=== PATIENT | male | born 1970 | race Hispanic/Latino ===

== ENCOUNTER 2018-06-12 05:02 | Emergency (ER) | payer BC, OTHER ==
--- OUTSIDE RECORDS SUMMARY | 2018-06-12 05:05 | XMS REPORT ---
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 Active with other specified diabetes mellitus Assessment Benign essential hypertension I10 Active Assessment Mixed hyperlipidemia E78.2 Active Assessment Allergic rhinitis, unspecified J30.9 Active seasonality, unspecified trigger Problem Benign essential hypertension I10 Active Problem Controlled type 2 diabetes mellitus E11.9 Active without complication, unspecified supervisor long goods insulin use status Problem Mixed hyperlipidemia E78.2 Active Assessment Controlled type 2 diabetes mellitus E11.9 Active without complication, unspecified supervisor long goods insulin use status Problem Allergic rhinitis, unspecified J30.9 Active seasonality, unspecified trigger Problem Diabetic polyneuropathy associated E13.42 Active with other specified diabetes mellitus Medications Medication Code Code Instructions Start End Status Dosage System Date Date Naproxen [facility] 11300903814 500 MG Orally Active 1 tablet every 12 hrs with food or milk as needed Aspirin Adult ND 60282916845 81 MG Orally Active 1 tablet Low Strength Once a day Tradjenta ND 25593842399 5 MG Orally October 09, Inactive 1 tablet Once a day 2018 Januvia ND 49729632777 100 MG Orally October 17, Active 1 tablet Once a day 2017 Lisinopril ND 64813703198 40 MG Orally Active 1 tablet Once a day Gabapentin ND 96633095952 300 MG Orally Active 1 capsule Three times a day Lipitor ND 01175130140 20 MG Orally Active 1 tablet Once a day Bydureon ND 07473282643 2 SC Once a Inactive 1 Vial week Glimepiride ND 35617350678 4 MG Orally October 09, Active 1 tablet twice a day 2017 with breakfast or the first main meal of the day Results No Known Results Summary Purpose eClinicalWorks Submission
[2018-06-12 06:40] LABS: Absolute Lymphocytes (CBC) 2.4 K/uL (0.7-4.9); Absolute Monocytes 0.6 K/uL (0.1-1.3); Absolute Neutrophil 4.8 K/uL (1.8-8.0); Basophils % 0.8 % (0-1.3); Eosinophils % 3.4 % (0-4.4); Hematocrit 50.1 % (39.6-49.0); Lymphocytes % 29.3 % (15.3-44.8); Monocytes % 7.3 % (3.3-12.3); RBC Red Blood Cell Count 5.96 M/uL (4.33-5.43)
[2018-06-12] MEDS ORDERED: ASPIRIN 81 MG CHEWABLE TABLET ONE (06:40)
[2018-06-12 06:42] LABS: Protime INR 1.01
[2018-06-12] MEDS ORDERED: KETOROLAC 30 MG/ML INJ ONE (06:58)
[2018-06-12] MEDS ORDERED: NA CHLORIDE 0.9% 1,000 ML ONE (06:58)
[2018-06-12] MEDS ORDERED: INSULIN -REGULAR HUMAN 50 UNIT/0.5 ML ML ONE ×2 (07:11→08:23)
[2018-06-12 07:17] LABS: ALT/SGPT 23 U/L (12-78); AST/SGOT 8 U/L (15-37); Alkaline Phosphatase 259 U/L (45-117); BUN Blood Urea Nitrogen 14 mg/dL (7-18); Bicarbonate 26 mmol/L (21-32); Bilirubin Direct 0.1 mg/dL (0-0.2); Bilirubin Total 0.5 mg/dL (0.2-1.0); Magnesium 2.1 mg/dL (1.8-2.4); NT PRO-BNP 7 pg/mL (<125); Potassium 4.2 mmol/L (3.5-5.1); Protein, Total 7.7 g/dL (6.4-8.2); Sodium Level 134 mmol/L (136-145); Troponin (Emerg Dept Use Only) < 0.02 ng/mL (0.0-0.045)
[2018-06-12 07:18] LABS: Glucose Level 416 mg/dL (74-106)
[2018-06-12] MEDS ORDERED: NA CHLORIDE 0.9% 2,000 ML ONE (07:40)
--- NOTE | 2018-06-12 08:15 | RAD REPORT ---
EXAM DESCRIPTION: RAD - Chest Single View - 06/12/2018 6:38 am CLINICAL HISTORY: left arm pain Chest pain. COMPARISON: CHEST SINGLE VIEW dated 02/20/2012; CHEST PA AND LAT 2 VIEW dated 11/23/2009; CHEST SINGL E VIEW dated 11/23/2009; CHEST PA AND LAT 2 VIEW dated 04/06/2008 FINDINGS: Portable technique limits examination quality. The lungs are underinflated but grossly clear. The heart is normal in size. No displaced fractures. IMPRESSION: No acute intrathoracic process suspected.
--- NOTE | 2018-06-12 09:20 | ER ---
Nurse's Notes [facility] Name: Guille Dunham Age: 48 yrs Sex: Male : 1970 Arrival Date: 06/12/2018 Time: 05:08 Bed 20 Private MD: Vish Florian Diagnosis: Diabetes mellitus due to underlying condition with diabetic neuropathy, unspecified Presentation: 06/12 05:15 Presenting complaint: Patient states: I am diabetic and I have been out of my ed1 medications for about a year now and I am having bad nerve pain in my feet and legs. I am also having a pain in my left bicep. Transition of care: patient was not received from another setting of care. Onset of symptoms was June 12, 2018. Risk Assessment: Do you want to hurt yourself or someone else? Patient reports no desire to harm self or others. Initial Sepsis Screen: Does the patient meet any 2 criteria? No. Patient's initial sepsis screen is negative. Does the patient have a suspected source of infection? No. Patient's initial sepsis screen is negative. Care prior to arrival: None. 05:15 Method Of Arrival: Ambulatory ed1 05:15 Acuity: JANICE 3 ed1 Triage Assessment: 05:22 General: Appears uncomfortable, Behavior is calm, cooperative. Pain: Complains of pain ed1 in left bicep, right leg and left leg Pain does not radiate. Pain currently is 8 out of 10 on a pain scale. Quality of pain is described as sharp, Pain began 4 hours ago. Is continuous. EENT: No signs and/or symptoms were reported regarding the EENT system. Neuro: Level of Consciousness is awake, alert, obeys commands, Oriented to person, place, time, situation. Cardiovascular: Denies chest pain, Heart tones S1 S2 present. Respiratory: Airway is patent Respiratory effort is even, unlabored, Respiratory pattern is regular, symmetrical, Breath sounds are clear bilaterally. Denies cough, shortness of breath. GI: Patient currently denies diarrhea, nausea, vomiting. : No signs and/or symptoms were reported regarding the genitourinary system. Derm: Skin is intact, is healthy with good turgor, Skin is dry, Skin is normal, Skin temperature is warm. Musculoskeletal: Circulation, motion, and sensation intact. Range of motion: intact in all extremities. Historical: - Allergies: 05:22 No Known Allergies; ed1 - Home Meds: 05:22 lisinopril 20 mg Oral tab 1 tab once daily [Active]; ed1 - PMHx: 05:22 Diabetes - NIDDM; Hyperlipidemia; Hypertension; ed1 - PSHx: 05:22 Knee surgery; ed1 - Immunization history:: Adult Immunizations up to date. - Social history:: Smoking status: Patient/guardian denies using tobacco. - Ebola Screening: : Patient negative for fever greater than or equal to 101.5 degrees Fahrenheit, and additional compatible Ebola Virus Disease symptoms Patient denies exposure to infectious person Patient denies travel to an Ebola-affected area in the 21 days before illness onset No symptoms or risks identified at this time. Screenin:25 Abuse screen: Denies threats or abuse. Denies injuries from another. Nutritional ed1 screening: No deficits noted. Tuberculosis screening: No symptoms or risk factors identified. Fall Risk None identified. Assessment: 05:25 General: See triage assessment. ed1 06:09 Reassessment: Patient appears in no apparent distress at this time. No changes from ed1 previously documented assessment. Patient and/or family updated on plan of care and expected duration. Pain level reassessed. Patient is alert, oriented x 3, equal unlabored respirations, skin warm/dry/pink. Patient states symptoms have not improved. 06:51 Reassessment: Patient appears in no apparent distress at this time. No changes from ed1 previously documented assessment. Patient and/or family updated on plan of care and expected duration. Pain level reassessed. Patient is alert, oriented x 3, equal unlabored respirations, skin warm/dry/pink. Patient states symptoms have not improved. 07:18 Reassessment: ELSA Deleon notified of critical lab value. Glucose 416. ss 07:45 Reassessment: Patient appears in no apparent distress at this time. Patient and/or hb family updated on plan of care and expected duration. Pain level reassessed. Patient is alert, oriented x 3, equal unlabored respirations, skin warm/dry/pink. 08:45 Reassessment: Patient appears in no apparent distress at this time. No changes from hb previously documented assessment. Patient and/or family updated on plan of care and expected duration. Pain level reassessed. Patient is alert, oriented x 3, equal unlabored respirations, skin warm/dry/pink. Vital Signs: 05:22 BP 127 / 94; Pulse 94; Resp 18; Temp 98.5(O); Pulse Ox 97% on R/A; Weight 108.86 kg; ed1 Height 5 ft. 9 in. (175.26 cm); Pain 8/10; 06:09 BP 148 / 98; Pulse 86; Resp 19; Pulse Ox 93% on R/A; Pain 8/10; ed1 06:51 BP 136 / 94; Pulse 79; Resp 13; Pulse Ox 92% on R/A; Pain 8/10; ed1 07:45 BP 140 / 94; Pulse 80; Resp 14; Pulse Ox 94% on R/A; dh3 09:00 BP 132 / 94; Pulse 72; Resp 16; Temp 95(O); Pulse Ox 100% on R/A; hb 05:22 Body Mass Index 35.44 (108.86 kg, 175.26 cm) ed1 ED Course: 05:08 Patient arrived in ED. es 05:09 Vish Florian DO is Private Physician. es 05:12 Keshia Jolley, RN is Primary Nurse. ed1 05:21 Triage completed. ed1 05:22 Arm band placed on. ed1 05:25 Patient has correct armband on for positive identification. Bed in low position. Call ed1 light in reach. 05:26 Awaiting ED provider evaluation. ed1 06:09 Resting quietly. Awaiting ED provider evaluation. ed1 06:14 Remy Lazo PA is PHCP. cp 06:14 Juan Mart MD is Attending Physician. cp 06:30 Initial lab(s) drawn, by mt, sent to lab. EKG done, by ED staff, reviewed by Juan Mart MD. Inserted saline lock: 20 gauge in left forearm, using aseptic technique. Blood collected. 06:37 X-ray completed. Portable x-ray completed in exam room. Patient tolerated procedure ls3 well. 06:38 XRAY Chest (1 view) In Process Unspecified. EDMS 07:09 Primary Nurse role handed off by Keshia Jolley, RN ed1 07:27 Stefani Menjivar, RN is Primary Nurse. hb 07:40 Urine collected: clean catch specimen, clear. dh3 09:31 No provider procedures requiring assistance completed. IV discontinued, intact, hb bleeding controlled, No redness/swelling at site. Pressure dressing applied. Administered Medications: 06:32 Drug: Aspirin Chewable Tablet 324 mg Route: PO; ed1 07:30 Follow up: Response: No adverse reaction hb 06:52 Drug: TORadol 30 mg Route: IVP; Site: left forearm; ed1 07:45 Follow up: Response: Pain is decreased hb 06:52 Drug: NS 0.9% 1000 ml Route: IV; Rate: 1 bolus; Site: left forearm; ed1 07:45 Follow up: Response: No adverse reaction; IV Status: Completed infusion hb 07:01 Drug: Insulin Regular Human 10 units {Co-Signature: bb (Veronica Mckeon RN).} Route: ed1 IVP; Site: left forearm; 08:00 Follow up: Response: No adverse reaction; Blood sugar is lowered hb 07:36 Drug: NS 0.9% 1000 ml Route: IV; Rate: 1 bolus; Site: left forearm; hb 09:20 Follow up: Response: No adverse reaction; IV Status: Completed infusion hb 08:18 Drug: NovoLIN R 7 units {Co-Signature: sg (Zane Vance RN).} Route: Sub-Q; Site: abdomen;hb 09:32 Follow up: Response: No adverse reaction; Blood sugar is lowered hb Point of Care Testing: Blood Glucose: 05:31 Blood Glucose: 354 mg/dL; Test Strip: Lot #: [id number]; Expiration: 10/30/2018; ed1 08:00 Blood Glucose: 299 mg/dL; dh3 09:20 Blood Glucose: 281 mg/dL; 3 Ranges: Outcome: 09:20 Discharge ordered by . cp 09:31 Discharged to home ambulatory. hb 09:31 Condition: stable 09:31 Discharge instructions given to patient, Instructed on discharge instructions, follow up and referral plans. medication usage, Demonstrated understanding of instructions, follow-up care, medications. 09:34 Patient left the ED. hb Signatures: Dispatcher [employer] Olimpia Billy Brenda, RN RN bb Smirch, Shelby, RN RN ss Keshia Jolley RN RN ed1 Remy Lazo PA PA cp Baxter, Heather, RN RN Charo Moya 3 Yeny Bonilla 3 Veronica Mckeon RN bb Zane Vance RN sg Corrections: (The following items were deleted from the chart) 09:23 09:22 Blood Glucose: Blood Glucose Wyntqce=531 mg/dL. 3 3
--- NOTE | 2018-06-12 09:20 | EDPHYS ---
Physician Documentation [facility] Name: Guille Dunham Age: 48 yrs Sex: Male : 1970 Arrival Date: 06/12/2018 Time: 05:08 Bed 20 Private MD: Vish Florian ED Physician Juan Mart HPI: 06/12 06:25 This 48 yrs old Male presents to ER via Ambulatory with complaints of Numbness cp of feet, diabetic,lt arm pain. 06:25 The patient presents with pain, paresthesias. The complaints affect the right foot and cp right lower leg and left foot and left lower leg. 06:25 Onset: The symptoms/episode began/occurred at an unknown time. and became worse last cp night. Associated signs and symptoms: Pertinent positives: tingling, left upper arm pain, of the right hand and left hand, Pertinent negatives calf tenderness, weakness, chest pain. Treatment prior to arrival includes: no previous treatment. 06:25 Patient reports he has been off his medications for diabetes for the past year. cp Historical: - Allergies: 05:22 No Known Allergies; ed1 - Home Meds: 05:22 lisinopril 20 mg Oral tab 1 tab once daily [Active]; ed1 - PMHx: 05:22 Diabetes - NIDDM; Hyperlipidemia; Hypertension; ed1 - PSHx: 05:22 Knee surgery; ed1 - Immunization history:: Adult Immunizations up to date. - Social history:: Smoking status: Patient/guardian denies using tobacco. - Ebola Screening: : Patient negative for fever greater than or equal to 101.5 degrees Fahrenheit, and additional compatible Ebola Virus Disease symptoms Patient denies exposure to infectious person Patient denies travel to an Ebola-affected area in the 21 days before illness onset No symptoms or risks identified at this time. ROS: 06:30 Constitutional: Negative for body aches, chills, fever, poor PO intake. cp 06:30 Eyes: Negative for injury, pain, redness, and discharge. cp 06:30 ENT: Negative for drainage from ear(s), ear pain, sore throat, difficulty swallowing, difficulty handling secretions. 06:30 Neck: Negative for pain with movement, pain at rest, stiffness, tenderness. 06:30 Cardiovascular: Negative for chest pain, edema, palpitations. 06:30 Respiratory: Negative for cough, shortness of breath, wheezing. 06:30 Abdomen/GI: Negative for abdominal pain, nausea, vomiting, and diarrhea, constipation, black/tarry stool, rectal bleeding. 06:30 Back: Negative for pain at rest, pain with movement. 06:30 : Negative for urinary symptoms. 06:30 MS/extremity: Positive for pain, of the left upper arm, Negative for injury or acute deformity, decreased range of motion. 06:30 Skin: Negative for cellulitis, rash. 06:30 Neuro: Positive for numbness, tingling, of the right hand and left hand and right foot and right lower leg and left foot and left lower leg, Negative for altered mental status, dizziness, headache, weakness. 06:30 All other systems are negative. Exam: 06:40 Constitutional: The patient appears in no acute distress, alert, awake, cp non-diaphoretic, non-toxic, well developed, well nourished. 06:40 Head/Face: Normocephalic, atraumatic. Eyes: Pupils equal round and reactive to light, cp extra-ocular motions intact. Lids and lashes normal. Conjunctiva and sclera are non-icteric and not injected. Cornea within normal limits. Periorbital areas with no swelling, redness, or edema. ENT: Nares patent. No nasal discharge, no septal abnormalities noted. Tympanic membranes are normal and external auditory canals are clear. Oropharynx with no redness, swelling, or masses, exudates, or evidence of obstruction, uvula midline. Mucous membranes moist. Neck: Trachea midline, no thyromegaly or masses palpated, and no cervical lymphadenopathy. Supple, full range of motion without nuchal rigidity, or vertebral point tenderness. No Meningismus. Chest/axilla: Normal chest wall appearance and motion. Nontender with no deformity. No lesions are appreciated. 06:40 Cardiovascular: Rate: normal, Rhythm: regular, Pulses: Pulses are 2+ in right radial artery, right dorsalis pedis artery, left radial artery and left dorsalis pedis artery. Heart sounds: murmur, not appreciated, Edema: is not appreciated, JVD: is not appreciated. 06:40 Respiratory: the patient does not display signs of respiratory distress, Respirations: normal, no use of accessory muscles, no retractions, labored breathing, is not present, Breath sounds: are clear throughout, no decreased breath sounds, no stridor, no wheezing. 06:40 Abdomen/GI: Inspection: abdomen appears normal, Bowel sounds: active, all quadrants, Palpation: abdomen is soft and non-tender, in all quadrants, rebound tenderness, is not appreciated, involuntary guarding, is not appreciated. 06:40 Back: pain, is absent, ROM is normal. 06:40 Musculoskeletal/extremity: Exam is negative for bony tenderness, calf tenderness, decreased range of motion, injury. 06:40 Skin: cellulitis, is not appreciated, no rash present. 06:40 Neuro: Orientation: to person, place \T\ time. Mentation: is normal, Cerebellar function: is grossly normal, Motor: moves all fours, strength is normal, Sensation: tingling, that is mild, of the right hand, left hand, right foot and left foot. 06:46 ECG was reviewed by the Attending Physician. cp Vital Signs: 05:22 BP 127 / 94; Pulse 94; Resp 18; Temp 98.5(O); Pulse Ox 97% on R/A; Weight 108.86 kg; ed1 Height 5 ft. 9 in. (175.26 cm); Pain 8/10; 06:09 BP 148 / 98; Pulse 86; Resp 19; Pulse Ox 93% on R/A; Pain 8/10; ed1 06:51 BP 136 / 94; Pulse 79; Resp 13; Pulse Ox 92% on R/A; Pain 8/10; ed1 07:45 BP 140 / 94; Pulse 80; Resp 14; Pulse Ox 94% on R/A; dh3 09:00 BP 132 / 94; Pulse 72; Resp 16; Temp 95(O); Pulse Ox 100% on R/A; hb 05:22 Body Mass Index 35.44 (108.86 kg, 175.26 cm) ed1 MDM: 06:15 Patient medically screened. cp 06:30 Differential diagnosis: cardiac arrythmia, electrolyte abnormality, DKA, dehydration, cp acute TX. 09:15 Data reviewed: vital signs, nurses notes, lab test result(s), EKG, radiologic studies, cp plain films. 09:15 Test interpretation: by ED physician or midlevel provider: ECG, plain radiologic cp studies. 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 Response to treatment: the patient's symptoms have markedly improved after treatment, and as a result, I will discharge patient. 06/12 06:23 Order name: Basic Metabolic Panel; Complete Time: 07:24 cp 06/12 07:25 Interpretation: Normal except: NA 134; GLUC 416. cp 06/12 06:23 Order name: CBC with Diff; Complete Time: 06:44 cp 06/12 06:44 Interpretation: Normal except: RBC 5.96; HCT 50.1. cp 06/12 06:23 Order name: LFT's; Complete Time: 07:24 cp 06/12 08:49 Interpretation: Normal except: AST 8; ALK 259; GLOB 3.7. cp 06/12 06:23 Order name: Magnesium; Complete Time: 07:24 cp 06/12 06:23 Order name: NT PRO-BNP; Complete Time: 07:24 cp 06/12 06:23 Order name: PT-INR; Complete Time: 06:44 cp 06/12 06:23 Order name: Troponin (emerg Dept Use Only); Complete Time: 07:24 cp 06/12 07:24 Interpretation: TROPED < 0.02; Reviewed. cp 06/12 06:23 Order name: XRAY Chest (1 view); Complete Time: 08:49 cp 06/12 08:02 Order name: Urine Dipstick--Ancillary (enter results) bd 06/12 08:02 Order name: Glucose, Ancillary Testing; Complete Time: 08:49 EDMS 06/12 06:23 Order name: EKG; Complete Time: 06:23 cp 06/12 06:23 Order name: Cardiac monitoring; Complete Time: 06:27 cp 06/12 06:23 Order name: EKG - Nurse/Tech; Complete Time: 06:27 cp 06/12 06:23 Order name: IV Saline Lock; Complete Time: 06:27 cp 06/12 06:23 Order name: Labs collected and sent; Complete Time: 06:27 cp 06/12 06:23 Order name: O2 Per Protocol; Complete Time: 06:25 cp 06/12 06:23 Order name: O2 Sat Monitoring; Complete Time: 06:24 cp 06/12 06:23 Order name: Accucheck Blood Glucose; Complete Time: 06:23 cp 06/12 07:27 Order name: Accucheck Blood Glucose: recheck \T\0800, repeat insulin 10 units if >300; cp Complete Time: 08:03 06/12 08:41 Order name: Accucheck Blood Glucose; Complete Time: 09:23 cp EC:46 Rate is 86 beats/min. Rhythm is regular. AL interval is normal. QRS interval is normal. cp QT interval is normal. Interpreted by me. Reviewed by me. Administered Medications: 06:32 Drug: Aspirin Chewable Tablet 324 mg Route: PO; ed1 07:30 Follow up: Response: No adverse reaction hb 06:52 Drug: TORadol 30 mg Route: IVP; Site: left forearm; ed1 07:45 Follow up: Response: Pain is decreased hb 06:52 Drug: NS 0.9% 1000 ml Route: IV; Rate: 1 bolus; Site: left forearm; ed1 07:45 Follow up: Response: No adverse reaction; IV Status: Completed infusion hb 07:01 Drug: Insulin Regular Human 10 units {Co-Signature: bb (Veronica Mckeon RN).} Route: ed1 IVP; Site: left forearm; 08:00 Follow up: Response: No adverse reaction; Blood sugar is lowered hb 07:36 Drug: NS 0.9% 1000 ml Route: IV; Rate: 1 bolus; Site: left forearm; hb 09:20 Follow up: Response: No adverse reaction; IV Status: Completed infusion hb 08:18 Drug: NovoLIN R 7 units {Co-Signature: sg (Zane Vance RN).} Route: Sub-Q; Site: abdomen;hb 09:32 Follow up: Response: No adverse reaction; Blood sugar is lowered hb Point of Care Testing: Blood Glucose: 05:31 Blood Glucose: 354 mg/dL; Test Strip: Lot #: [id number]; Expiration: 10/30/2018; ed1 08:00 Blood Glucose: 299 mg/dL; dh3 09:20 Blood Glucose: 281 mg/dL; dh3 Ranges: Critical Glucose Levels:Adult <50 mg/dl or >400 mg/dl <40 mg/dl or >180 mg/dl Disposition: 23:20 Co-signature as Attending Physician, Juan Mart MD. Disposition: 06/12/18 09:20 Discharged to Home. Impression: Diabetes mellitus due to underlying condition with diabetic neuropathy, unspecified. - Condition is Stable. - Discharge Instructions: Diabetes and Foot Care, Basic Carbohydrate Counting for Diabetes Mellitus, Neuropathic Pain, Form - Daily Diabetes Record, Diabetic Neuropathy, Diabetes and Exercise. - Medication Reconciliation Form, Thank You Letter, Antibiotic Education, Prescription Opioid Use, Work release form form. - Follow up: Private Physician; When: 1 - 2 days; Reason: Recheck today's complaints. - Problem is an ongoing problem. - Symptoms have improved. Signatures: Dispatcher [employer] EDMS Keshia Jolley RN RN ed1 Remy Lazo PA PA cp Baxter, Heather, RN RN Juan Mart MD MD Veronica Mckeon RN bb Zane Vance RN sg Corrections: (The following items were deleted from the chart) 09:34 09:20 06/12/2018 09:20 Discharged to Home. Impression: Diabetes mellitus due to hb underlying condition with diabetic neuropathy, unspecified. Condition is Stable. Discharge Instructions: Diabetes and Foot Care, Diabetes and Exercise, Basic Carbohydrate Counting for Diabetes Mellitus. Forms are Medication Reconciliation Form, Thank You Letter, Antibiotic Education, Prescription Opioid Use. Follow up: Private Physician; When: 1 - 2 days; Reason: Recheck today's complaints. Problem is an ongoing problem. Symptoms have improved. cp
[2018-06-12 09:23] LABS: Urine Blood NEGATIVE (NEG); Urine Glucose 3+ (NEG); Urine Protein NEGATIVE (NEG)
[2018-06-12 09:44] VITALS: BP 132/94; TEMP 95; O2SAT 100
--- NOTE | 2018-06-13 10:29 | EKG ---
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
== END 2018-06-12 09:34 | disposition home or self-care (01) ==
LOC: ER 05:02
DX: E11.40 Type 2 diabetes mellitus with diabetic neuropathy, unspecified (principal); E08.21 Diabetes mellitus due to underlying condition with diabetic nephropathy
CPT/HCPCS: 36415; 71045; 80048; 80076; 81003; 82962; 83735; 83880; 84484; 85025; 85610; 93005; 96361; 96372; 96374; 96375; 99284; J7030

== ENCOUNTER 2018-08-25 07:26 | Emergency (ER) | payer OTHER ==
--- OUTSIDE RECORDS SUMMARY | 2018-08-25 07:29 | XMS REPORT ---
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 Active with other specified diabetes mellitus Medications Medication Code Code Instructions Start End Status Dosage System Date Date Naproxen [facility] 58982448060 500 MG Orally Active 1 tablet every 12 hrs with food or milk as needed Aspirin Adult ND 30647643902 81 MG Orally Active 1 tablet Low Strength Once a day Tradjenta ND 35988487720 5 MG Orally October 09, Inactive 1 tablet Once a day 2018 Januvia ND 80531413367 100 MG Orally October 17, Active 1 tablet Once a day 2017 Lisinopril ND 23910651312 40 MG Orally Active 1 tablet Once a day Gabapentin ND 23092806311 300 MG Orally Active 1 capsule Three times a day Lipitor ND 55010432743 20 MG Orally Active 1 tablet Once a day Bydureon ND 62733901294 2 SC Once a Inactive 1 Vial week Glimepiride ND 65074472633 4 MG Orally October 09, Active 1 tablet twice a day 2017 with breakfast or the first main meal of the day Results No Known Results Summary Purpose eClinicalWorks Submission
--- NOTE | 2018-08-25 09:15 | ER ---
Nurse's Notes [facility] Name: Guille Dunham Age: 48 yrs Sex: Male : 1970 Arrival Date: 08/25/2018 Time: 07:28 Bed 13 Private MD: Diagnosis: Pain in right foot Presentation: 08/25 07:35 Presenting complaint: Patient states: About 4 months ago, my son was helping me take sg off my boot, felt a pop on the top of my right foot, now the pain is radiating up into my right ankle and the way it makes me walk has caused pain in my left hip, Im falling apart. Transition of care: patient was not received from another setting of care. Onset of symptoms was August 25, 2018. Risk Assessment: Do you want to hurt yourself or someone else? Patient reports no desire to harm self or others. Initial Sepsis Screen: Does the patient meet any 2 criteria? No. Patient's initial sepsis screen is negative. Does the patient have a suspected source of infection? No. Patient's initial sepsis screen is negative. Care prior to arrival: None. 07:35 Method Of Arrival: Ambulatory sg 07:35 Acuity: JANICE 4 sg Historical: - Allergies: 07:38 No Known Allergies; sg - Home Meds: 07:38 lisinopril 20 mg Oral tab 1 tab once daily [Active]; sg - PMHx: 07:38 Diabetes - NIDDM; Hyperlipidemia; Hypertension; sg - PSHx: 07:38 Knee surgery; sg - Immunization history:: Adult Immunizations up to date. - Social history:: Smoking status: Patient/guardian denies using tobacco. - Ebola Screening: : Patient negative for fever greater than or equal to 101.5 degrees Fahrenheit, and additional compatible Ebola Virus Disease symptoms Patient denies exposure to infectious person Patient denies travel to an Ebola-affected area in the 21 days before illness onset No symptoms or risks identified at this time. Screenin:38 Abuse screen: Denies threats or abuse. Denies injuries from another. Nutritional sg screening: No deficits noted. Fall Risk None identified. 07:42 Tuberculosis screening: No symptoms or risk factors identified. Never had TB. sg Assessment: 07:38 General: Appears in no apparent distress. well groomed, well developed, well nourished, sg Behavior is calm, cooperative, appropriate for age. Pain: Complains of pain in right lateral malleolus and dorsum of right foot Quality of pain is described as aching, tender. 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 Cardiovascular: Capillary refill is brisk in bilateral fingers Patient's skin is warm and dry. Chest pain is denied. Respiratory: Airway is patent Respiratory effort is even, unlabored, Respiratory pattern is regular, symmetrical. GI: Abdomen is round non-distended, Reports tolerance of fluids, tolerance of food. : No signs and/or symptoms were reported regarding the genitourinary system. EENT: No signs and/or symptoms were reported regarding the EENT system. Derm: Skin is pink, warm \T\ dry. Musculoskeletal: No signs and/or symptoms reported regarding the musculoskeletal system. Vital Signs: 07:36 BP 148 / 109; Pulse 82; Resp 17; Temp 97.9(O); Pulse Ox 97% on R/A; Pain 6/10; sg 09:00 BP 145 / 89; Pulse 80; Resp 17 S; Pulse Ox 98% on R/A; sg ED Course: 07:28 Patient arrived in ED. rg4 07:35 Zane Vance, RN is Primary Nurse. sg 07:36 Triage completed. sg 07:36 Arm band placed on. sg 07:39 No provider procedures requiring assistance completed. sg 07:40 Patient has correct armband on for positive identification. Bed in low position. Side sg rails up X2. Pulse ox on. NIBP on. 07:51 Josue Mathew MD is Attending Physician. kdr 08:32 X-ray completed. Portable x-ray completed in exam room. Patient tolerated procedure mh1 well. 08:33 Foot Right 3 View XRAY In Process Unspecified. EDMS 09:14 Zane Piña MD is Referral Physician. kdr 09:15 Patient did not have IV access during this emergency room visit. sg Administered Medications: No medications were administered Outcome: 09:15 Discharge ordered by . kdr 09:15 Discharged to home ambulatory, with family. sg 09:15 Condition: good 09:15 Discharge instructions given to patient, Instructed on discharge instructions, follow up and referral plans. safety practices, Demonstrated understanding of instructions, follow-up care, medications, Prescriptions given X 1. 09:20 Patient left the ED. sg Signatures: Dispatcher [employer] Zane Alvarado RN RN sg Rittger, Kevin, MD MD [facility] Chapis Hoffmann [facility] Shannan Iniguez 4
--- NOTE | 2018-08-25 09:16 | EDPHYS ---
Physician Documentation [facility] Name: Guille Dunham Age: 48 yrs Sex: Male : 1970 Arrival Date: 08/25/2018 Time: 07:28 Bed 13 Private MD: ED Physician Josue Mathew HPI: 08/25 07:58 This 48 yrs old Male presents to ER via Ambulatory with complaints of Foot kdr Pain. 07:58 The patient presents with an injury, pain, that is chronic, tenderness. The complaints kdr affect the right foot. Context: The problem was sustained at home, resulted from an unknown cause, Mechanism of Injury: Unknown the patient can partially bear weight, the patient is able to ambulate, with mild difficulty. Onset: The symptoms/episode began/occurred The pain has been there for several months but three weeks ago he had a spike in pain for no known reason. The initial injury occurred when his son pulled off a wet boot. Modifying factors: The symptoms are alleviated by nothing, the symptoms are aggravated by weight bearing, movement. Associated signs and symptoms: Pertinent positives: Pertinent negatives: calf tenderness, fever, nausea, numbness, rash, swelling, tingling, vomiting, warmth, weakness. Severity of symptoms: At their worst the symptoms were mild, moderate, just prior to arrival, in the emergency department the symptoms are unchanged. The patient has not experienced similar symptoms in the past. The patient has not recently seen a physician. Historical: - Allergies: 07:38 No Known Allergies; sg - Home Meds: 07:38 lisinopril 20 mg Oral tab 1 tab once daily [Active]; sg - PMHx: 07:38 Diabetes - NIDDM; Hyperlipidemia; Hypertension; sg - PSHx: 07:38 Knee surgery; sg - Immunization history:: Adult Immunizations up to date. - Social history:: Smoking status: Patient/guardian denies using tobacco. - Ebola Screening: : Patient negative for fever greater than or equal to 101.5 degrees Fahrenheit, and additional compatible Ebola Virus Disease symptoms Patient denies exposure to infectious person Patient denies travel to an Ebola-affected area in the 21 days before illness onset No symptoms or risks identified at this time. ROS: 07:58 Constitutional: Negative for fever, chills, and weight loss, Eyes: Negative for injury, kdr pain, redness, and discharge, Neck: Negative for injury, pain, and swelling, Cardiovascular: Negative for chest pain, palpitations, and edema, Respiratory: Negative for shortness of breath, cough, wheezing, and pleuritic chest pain, Abdomen/GI: Negative for abdominal pain, nausea, vomiting, diarrhea, and constipation, Back: Negative for injury and pain, : Negative for injury, bleeding, discharge, and swelling, Skin: Negative for injury, rash, and discoloration, Neuro: Negative for headache, weakness, numbness, tingling, and seizure activity. Psych: Negative for depression, anxiety, suicide ideation, homicidal ideation, and hallucinations, Allergy/Immunology: Negative for hives, rash, and allergies, Endocrine: Negative for neck swelling, polydipsia, polyuria, polyphagia, and marked weight changes, Hematologic/Lymphatic: Negative for swollen nodes, abnormal bleeding, and unusual bruising. 07:58 MS/extremity: Positive for injury or acute deformity, decreased range of motion, pain, tenderness, of the dorsum of right foot. Exam: 07:58 Constitutional: This is a well developed, well nourished patient who is awake, alert, kdr and in no acute distress. 07:58 Musculoskeletal/extremity: Extremities: grossly normal except: noted in the dorsum of right foot: decreased ROM, pain, tenderness. Vital Signs: 07:36 BP 148 / 109; Pulse 82; Resp 17; Temp 97.9(O); Pulse Ox 97% on R/A; Pain 6/10; sg 09:00 BP 145 / 89; Pulse 80; Resp 17 S; Pulse Ox 98% on R/A; sg MDM: 09:15 Patient medically screened. kdr 09:23 Data reviewed: vital signs, nurses notes, radiologic studies. Counseling: I had a kdr detailed discussion with the patient and/or guardian regarding: the historical points, exam findings, and any diagnostic results supporting the discharge/admit diagnosis, radiology results, the need for outpatient follow up. 08/25 07:58 Order name: Foot Right 3 View XRAY; Complete Time: 10:23 kdr 08/25 09:03 Order name: Post-op Orthopedic Shoe; Complete Time: 09:05 kdr 08/25 09:03 Order name: Crutches; Complete Time: 09:05 kdr Administered Medications: No medications were administered Disposition: 08/25/18 09:15 Discharged to Home. Impression: Pain in right foot. - Condition is Stable. - Discharge Instructions: Foot Pain. - Prescriptions for Tramadol 50 mg Oral Tablet - take 1 tablet by ORAL route every 8 hours as needed; 12 tablet. - Medication Reconciliation Form, Thank You Letter, Prescription Opioid Use form. - Work release form (08/25/18 09:20). sg - Follow up: Private Physician; When: 2 - 3 days; Reason: If symptoms return, Further diagnostic work-up, Recheck today's complaints, Continuance of care, Re-evaluation by your physician. Follow up: Zane Piña MD; When: 2 - 3 days; Reason: If symptoms return, Further diagnostic work-up, Recheck today's complaints, Continuance of care, Re-evaluation by your physician. - Problem is an ongoing problem. - Symptoms are unchanged. - Notes: If radiology findings are different that what has been related to you, we will call you back with any additional information as needed Signatures: Dispatcher [employer] [facility] Zane Vance RN RN Josue Mathew MD MD [facility] Corrections: (The following items were deleted from the chart) 09:20 09:15 08/25/2018 09:15 Discharged to Home. Impression: Pain in right foot. Condition is sg Stable. Forms are Medication Reconciliation Form, Thank You Letter, Antibiotic Education, Prescription Opioid Use. Follow up: Private Physician; When: 2 - 3 days; Reason: If symptoms return, Further diagnostic work-up, Recheck today's complaints, Continuance of care, Re-evaluation by your physician. Follow up: Zane Piña; When: 2 - 3 days; Reason: If symptoms return, Further diagnostic work-up, Recheck today's complaints, Continuance of care, Re-evaluation by your physician. Problem is an ongoing problem. Symptoms are unchanged. kdr
[2018-08-25 09:25] VITALS: BP 148/109; TEMP 97.9; O2SAT 97
--- NOTE | 2018-08-25 09:52 | RAD REPORT ---
EXAM DESCRIPTION: RAD - Foot Right 3 View - 08/25/2018 8:32 am CLINICAL HISTORY: Right foot and ankle pain following trauma COMPARISON: None. FINDINGS: No fracture, dislocation or periosteal reaction. No acute or destructive bone process. Ear ly joint space narrowing is present at the first MTP joint. Patient has small plantar and Achilles sp urs. No air or foreign body in the soft tissues. IMPRESSION: No fracture or acute bone finding. Small plantar and Achilles spurs.
== END 2018-08-25 09:20 | disposition home or self-care (01) ==
LOC: ER 07:26
DX: M79.671 Pain in right foot (principal); E11.9 Type 2 diabetes mellitus without complications; E78.5 Hyperlipidemia, unspecified; I10 Essential (primary) hypertension
CPT/HCPCS: 99283

== ENCOUNTER 2018-10-07 18:47 | Emergency (ER) | payer OTHER ==
--- OUTSIDE RECORDS SUMMARY | 2018-10-07 18:50 | XMS REPORT ---
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 Active with other specified diabetes mellitus Medications Medication Code Code Instructions Start End Status Dosage System Date Date Naproxen [facility] 59998464926 500 MG Orally Active 1 tablet every 12 hrs with food or milk as needed Aspirin Adult ND 68683278421 81 MG Orally Active 1 tablet Low Strength Once a day Tradjenta ND 12445175848 5 MG Orally October 09, Inactive 1 tablet Once a day 2018 Januvia ND 23684147537 100 MG Orally October 17, Active 1 tablet Once a day 2017 Lisinopril ND 59410261067 40 MG Orally Active 1 tablet Once a day Gabapentin ND 93982352582 300 MG Orally Active 1 capsule Three times a day Lipitor ND 62858566141 20 MG Orally Active 1 tablet Once a day Bydureon ND 09632032141 2 SC Once a Inactive 1 Vial week Glimepiride ND 66851449876 4 MG Orally October 09, Active 1 tablet twice a day 2017 with breakfast or the first main meal of the day Results No Known Results Summary Purpose eClinicalWorks Submission
[2018-10-07 19:40] LABS: Absolute Lymphocytes (CBC) 2.2 K/uL (0.7-4.9); Basophils % 0.9 % (0-1.3); Eosinophils % 2.8 % (0-4.4); Hematocrit 46.1 % (39.6-49.0); Lymphocytes % 30.8 % (15.3-44.8); MPV 10.6 fL (7.6-11.3); Monocytes % 7.5 % (3.3-12.3); RBC Red Blood Cell Count 5.38 M/uL (4.33-5.43)
[2018-10-07] MEDS ORDERED: LISINOPRIL 20 MG TAB ONE (19:50)
[2018-10-07] MEDS ORDERED: KETOROLAC 30 MG/ML INJ ONE (19:50)
[2018-10-07] MEDS ORDERED: NA CHLORIDE 0.9% 1,000 ML ONE (19:50)
[2018-10-07 20:15] LABS: Potassium 4.3 mmol/L (3.5-5.1)
[2018-10-07] MEDS ORDERED: INSULIN -REGULAR HUMAN 50 UNIT/0.5 ML ML ONE (21:05)
--- NOTE | 2018-10-07 22:41 | ER ---
Nurse's Notes [facility] Name: Guille Dunham Age: 48 yrs Sex: Male : 1970 Arrival Date: 10/07/2018 Time: 18:50 Bed 6 Private MD: Vish Florian Diagnosis: Hyperglycemia, unspecified;Other specified diabetes mellitus with diabetic polyneuropathy Presentation: 10/07 18:52 Presenting complaint: Patient states: "I have neuropathy and both of my legs are aa5 burning really bad and it's been going on for a while". Pt states "I can't afford my medications so I haven't been taking anything for diabetes or high blood pressure". Transition of care: patient was not received from another setting of care. Onset of symptoms was April 2018. Risk Assessment: Do you want to hurt yourself or someone else? Patient reports no desire to harm self or others. Initial Sepsis Screen: Does the patient meet any 2 criteria? No. Patient's initial sepsis screen is negative. Does the patient have a suspected source of infection? No. Patient's initial sepsis screen is negative. Care prior to arrival: None. 18:52 Method Of Arrival: Ambulatory aa5 18:52 Acuity: JANICE 2 aa5 Historical: - Allergies: 18:58 No Known Allergies; aa5 - Home Meds: 18:58 None [Active]; aa5 - PMHx: 18:58 Diabetes - NIDDM; Hyperlipidemia; Hypertension; aa5 - PSHx: 18:58 Knee surgery; aa5 - Immunization history:: Flu vaccine is not up to date. - Social history:: Smoking status: Patient/guardian denies using tobacco. - Ebola Screening: : No symptoms or risks identified at this time. - Family history:: not pertinent. - Hospitalizations: : No recent hospitalization is reported. Screenin:25 Abuse screen: Denies threats or abuse. Denies injuries from another. Nutritional lp1 screening: No deficits noted. Tuberculosis screening: No symptoms or risk factors identified. Fall Risk None identified. Assessment: 19:23 General: Appears uncomfortable, Behavior is appropriate for age. Pain: Complains of lp1 pain in right leg and left leg Pain currently is 8 out of 10 on a pain scale. Quality of pain is described as burning, stinging. Neuro: Level of Consciousness is awake, alert, obeys commands, Oriented to person, place, time, situation. Cardiovascular: Patient's skin is warm and dry. Pulses are all present. Respiratory: Respiratory effort is even, unlabored. GI: No signs and/or symptoms were reported involving the gastrointestinal system. : No signs and/or symptoms were reported regarding the genitourinary system. EENT: No signs and/or symptoms were reported regarding the EENT system. EENT:. Derm: Skin is pink, warm \\T\\ dry. Musculoskeletal: Capillary refill < 3 seconds, in bilateral fingers. toes. Range of motion: intact in all extremities. 20:24 Reassessment: Patient appears in no apparent distress at this time. Patient and/or lp1 family updated on plan of care and expected duration. Pain level reassessed. Patient states pain to bilateral lower legs improved at this time. 21:00 Reassessment: Patient and/or family updated on plan of care and expected duration. Pain ea level reassessed. Patient is alert, oriented x 3, equal unlabored respirations, skin warm/dry/pink. 22:55 Reassessment: Patient and/or family updated on plan of care and expected duration. Pain ea level reassessed. Patient is alert, oriented x 3, equal unlabored respirations, skin warm/dry/pink. Discharge instruction given to patient, verbalized the understanding of instruction. Pt left ED ambulatory tolerating well. Vital Signs: 18:58 BP 180 / 102; Pulse 90; Resp 18 S; Temp 98.4(TE); Pulse Ox 96% on R/A; Weight 106.37 kg aa5 (M); Height 5 ft. 9 in. (175.26 cm) (R); Pain 8/10; 19:25 BP 160 / 102; Pulse 81; Resp 18; Pulse Ox 97% on R/A; lp1 19:42 BP 167 / 95; Pulse 75; Resp 16; Pulse Ox 97% on R/A; lp1 20:15 BP 133 / 106; Pulse 78; Resp 18; Pulse Ox 97% on R/A; lp1 20:31 BP 152 / 90; Pulse 79; Resp 18; Pulse Ox 95% on R/A; lp1 22:50 BP 148 / 92; Pulse 80; Resp 18; Pulse Ox 100% on R/A; ea 18:58 Body Mass Index 34.63 (106.37 kg, 175.26 cm) aa5 ED Course: 18:50 Patient arrived in ED. rg4 18:50 Vish Florian DO is Private Physician. rg4 18:52 Arm band placed on. aa5 18:57 Triage completed. aa5 19:00 Rajesh Flores MD is Attending Physician. rn 19:05 Initial lab(s) drawn, by ut, sent to lab. Inserted saline lock: 20 gauge in right aa5 forearm, using aseptic technique. Blood collected. 19:23 Shila Spencer, RN is Primary Nurse. lp1 19:25 Patient has correct armband on for positive identification. Bed in low position. Call lp1 light in reach. Pulse ox on. NIBP on. 19:42 No provider procedures requiring assistance completed. lp1 19:52 Notified ED physician of a critical lab result(s). Glucose 540. lp1 22:40 Vish Florian DO is Referral Physician. rn 22:55 IV discontinued, intact, bleeding controlled, No redness/swelling at site. Pressure ea dressing applied. Administered Medications: 19:41 Drug: NS 0.9% 1000 ml Route: IV; Rate: 1000 ml; Site: right forearm; lp1 21:00 Follow up: IV Status: Completed infusion; IV Intake: 1000ml lp1 19:42 Drug: TORadol - Ketorolac 15 mg Route: IVP; Site: right forearm; lp1 20:06 Follow up: Response: Pain is decreased lp1 19:42 Drug: Lisinopril 20 mg Route: PO; lp1 20:35 Follow up: Response: Blood pressure is lowered lp1 20:54 Drug: Insulin Regular Human 10 units {Co-Signature: lp1 (Shila Spencer RN).} Route: Sub-Q; ea Site: right lower abdomen; 22:00 Follow up: Response: Blood sugar is lowered ea Point of Care Testing: Blood Glucose: 21:53 Blood Glucose: 461 mg/dL; ea 22:50 Blood Glucose: 418 mg/dL; ea 18:58 High >500 mg/dL aa5 Ranges: Intake: 21:00 IV: 1000ml; Total: 1000ml. lp1 Outcome: 22:40 Discharge ordered by . rn 22:59 Discharged to home ambulatory. ea 22:59 Condition: stable 22:59 Discharge instructions given to patient, Instructed on discharge instructions, follow up and referral plans. Demonstrated understanding of instructions, follow-up care. 23:04 Patient left the ED. ea Signatures: Rajesh Flores MD MD rn Calderon, Audri RN RN aa5 Shila Spencer RN RN lp1 Shannan Iniguez rg4 Kell Gonzalez RN RN ea Laura Pena RN lp1 Corrections: (The following items were deleted from the chart) 19:00 18:58 BP 180 / 102; Pulse 90bpm; Resp 18bpm; Spontaneous; Pulse Ox 96% RA; Temp 98.4F aa5 Temporal; 104.33 kg Reported; Height 5 ft. 9 in. Reported; BMI: 33.9; aa5 19:03 18:58 BP 180 / 102; Pulse 90bpm; Resp 18bpm; Spontaneous; Pulse Ox 96% RA; Temp 98.4F aa5 Temporal; 104.33 kg Reported; Height 5 ft. 9 in. Reported; BMI: 33.9; Pain 8/10; aa5
--- NOTE | 2018-10-07 22:41 | EDPHYS ---
Physician Documentation [facility] Name: Guille Dunham Age: 48 yrs Sex: Male : 1970 Arrival Date: 10/07/2018 Time: 18:50 Bed 6 Private MD: Vish Florian ED Physician Rajesh Flores HPI: 10/07 21:27 This 48 yrs old Male presents to ER via Ambulatory with complaints of Leg rn Pain, Foot Pain. 21:27 The patient presents with pain, that is chronic. The complaints affect the left leg and rn right leg. Onset: The symptoms/episode began/occurred at an unknown time. Modifying factors: The symptoms are alleviated by OTC meds, the symptoms are aggravated by movement. Severity of symptoms: At their worst the symptoms were moderate, in the emergency department the symptoms have improved. The patient has experienced similar episodes in the past, chronically. The patient has not recently seen a physician. Reports has known neuropathy, has not been on his diabetic meds including gabapentin or BP meds for almost 1 year, due to financial stress, reports is working again and having neuropathic pain as well as pain in knees from working, better with OTC meds, reports going to see pcp tomorrow but knows will need blood work done. No acute trauma. No fever. No focal neurological complaints. No chest pain/sob. . Historical: - Allergies: 18:58 No Known Allergies; aa5 - Home Meds: 18:58 None [Active]; aa5 - PMHx: 18:58 Diabetes - NIDDM; Hyperlipidemia; Hypertension; aa5 - PSHx: 18:58 Knee surgery; aa5 - Immunization history:: Flu vaccine is not up to date. - Social history:: Smoking status: Patient/guardian denies using tobacco. - Ebola Screening: : No symptoms or risks identified at this time. - Family history:: not pertinent. - Hospitalizations: : No recent hospitalization is reported. ROS: 21:27 Constitutional: Negative for fever, chills, and weight loss, Eyes: Negative for injury, rn pain, redness, and discharge, Neck: Negative for injury, pain, and swelling, Cardiovascular: Negative for chest pain, palpitations, and edema, Respiratory: Negative for shortness of breath, cough, wheezing, and pleuritic chest pain, Abdomen/GI: Negative for abdominal pain, nausea, vomiting, diarrhea, and constipation, Back: Negative for injury and pain, MS/Extremity: Negative for injury and deformity, Skin: Negative for injury, rash, and discoloration, Neuro: Negative for headache, weakness, numbness, tingling, and seizure. Exam: 21:27 Constitutional: This is a well developed, well nourished patient who is awake, alert, rn and in no acute distress. Head/Face: Normocephalic, atraumatic. Eyes: Pupils equal round and reactive to light, extra-ocular motions intact. Lids and lashes normal. Conjunctiva and sclera are non-icteric and not injected. Cornea within normal limits. Periorbital areas with no swelling, redness, or edema. ENT: MMM Neck: Trachea midline, no thyromegaly or masses palpated, and no cervical lymphadenopathy. Supple, full range of motion without nuchal rigidity, or vertebral point tenderness. No Meningismus. Respiratory: No increased work of breathing, no retractions or nasal flaring. Abdomen/GI: soft, non-tender Back: No spinal tenderness. No costovertebral tenderness. Full range of motion. Skin: Warm, dry with normal turgor. Normal color with no rashes, no lesions, and no evidence of cellulitis. MS/ Extremity: Pulses equal, no cyanosis. Neurovascular intact. Full, normal range of motion. Equal circumference. Neuro: Awake and alert, GCS 15, oriented to person, place, time, and situation. Cranial nerves II-XII grossly intact. Motor strength 5/5 in all extremities. Sensory grossly intact. Cerebellar exam normal. Normal gait. Vital Signs: 18:58 BP 180 / 102; Pulse 90; Resp 18 S; Temp 98.4(TE); Pulse Ox 96% on R/A; Weight 106.37 kg aa5 (M); Height 5 ft. 9 in. (175.26 cm) (R); Pain 8/10; 19:25 BP 160 / 102; Pulse 81; Resp 18; Pulse Ox 97% on R/A; lp1 19:42 BP 167 / 95; Pulse 75; Resp 16; Pulse Ox 97% on R/A; lp1 20:15 BP 133 / 106; Pulse 78; Resp 18; Pulse Ox 97% on R/A; lp1 20:31 BP 152 / 90; Pulse 79; Resp 18; Pulse Ox 95% on R/A; lp1 22:50 BP 148 / 92; Pulse 80; Resp 18; Pulse Ox 100% on R/A; ea 18:58 Body Mass Index 34.63 (106.37 kg, 175.26 cm) aa5 MDM: 19:00 Patient medically screened. rn 22:38 Differential diagnosis: neuropathy. Data reviewed: vital signs, nurses notes, lab test rn result(s), and as a result, I will discharge patient. Counseling: I had a detailed discussion with the patient and/or guardian regarding: the historical points, exam findings, and any diagnostic results supporting the discharge/admit diagnosis, lab results, the need for outpatient follow up, to return to the emergency department if symptoms worsen or persist or if there are any questions or concerns that arise at home. Response to treatment: the patient's symptoms have mildly improved after treatment, and as a result, I will discharge patient. Special discussion: I discussed with the patient/guardian in detail that at this point there is no indication for admission to the hospital. It is understood, however, that if the symptoms persist or worsen the patient needs to return immediately for re-evaluation. ED course: + hyperglycemia, likely for a while now, no AG, some improvement but will not be too aggressive with glucose lowering given is nighttime and will likely not eat again prior to going to bed. Plans on seeing pcp tomorrow for further medication prescriptions and management.. 10/07 19:03 Order name: Glucose; Complete Time: 20:44 aa5 10/07 19:26 Order name: CBC with Diff; Complete Time: 20:44 rn 10/07 19:26 Order name: Basic Metabolic Panel; Complete Time: 20:44 rn 10/07 19:26 Order name: Hemoglobin A1c rn 10/07 21:29 Order name: Glucose, Ancillary Testing; Complete Time: 22:38 EDMS 10/07 23:03 Order name: Glucose il 10/07 19:26 Order name: IV Start; Complete Time: 19:26 rn 10/07 23:03 Order name: Glucose Level EDMS Administered Medications: 19:41 Drug: NS 0.9% 1000 ml Route: IV; Rate: 1000 ml; Site: right forearm; lp1 21:00 Follow up: IV Status: Completed infusion; IV Intake: 1000ml lp1 19:42 Drug: TORadol - Ketorolac 15 mg Route: IVP; Site: right forearm; lp1 20:06 Follow up: Response: Pain is decreased lp1 19:42 Drug: Lisinopril 20 mg Route: PO; lp1 20:35 Follow up: Response: Blood pressure is lowered lp1 20:54 Drug: Insulin Regular Human 10 units {Co-Signature: lp1 (Shila Spencer RN).} Route: Sub-Q; ea Site: right lower abdomen; 22:00 Follow up: Response: Blood sugar is lowered ea Point of Care Testing: Blood Glucose: 21:53 Blood Glucose: 461 mg/dL; ea 22:50 Blood Glucose: 418 mg/dL; ea 18:58 High >500 mg/dL aa5 Ranges: Critical Glucose Levels:Adult <50 mg/dl or >400 mg/dl <40 mg/dl or >180 mg/dl Disposition: 10/07/18 22:40 Discharged to Home. Impression: Hyperglycemia, unspecified, Other specified diabetes mellitus with diabetic polyneuropathy. - Condition is Stable. - Discharge Instructions: Hyperglycemia, Diabetic Neuropathy. - Medication Reconciliation Form, Thank You Letter, Antibiotic Education, Prescription Opioid Use, Work release form form. - Follow up: Vish Florian DO; When: Tomorrow; Reason: Recheck today's complaints, Re-evaluation by your physician. - Problem is an ongoing problem. - Symptoms have improved. Signatures: Dispatcher [employer] EDMS Rajesh Flores MD MD rn Calderon, Audri, RN RN aa5 Shila Spencer RN RN lp1 Kell Gonzalez RN RN ea Laura Pena RN lp1 Corrections: (The following items were deleted from the chart) 23:04 22:40 10/07/2018 22:40 Discharged to Home. Impression: Hyperglycemia, unspecified; ea Other specified diabetes mellitus with diabetic polyneuropathy. Condition is Stable. Forms are Medication Reconciliation Form, Thank You Letter, Antibiotic Education, Prescription Opioid Use. Follow up: Vish Florian; When: Tomorrow; Reason: Recheck today's complaints, Re-evaluation by your physician. Problem is an ongoing problem. Symptoms have improved. rn
[2018-10-08 08:49] VITALS: TEMP 98.4
[2018-10-08 08:54] VITALS: BP 148/92; O2SAT 100
== END 2018-10-07 23:04 | disposition home or self-care (01) ==
LOC: ER 18:47
DX: E11.65 Type 2 diabetes mellitus with hyperglycemia (principal); E11.42 Type 2 diabetes mellitus with diabetic polyneuropathy; I10 Essential (primary) hypertension; E78.5 Hyperlipidemia, unspecified
CPT/HCPCS: 36415; 80048; 82947; 82962; 85025; 96361; 96372; 96374; 99284; J7030

== ENCOUNTER 2019-06-01 18:28 | Emergency (ER) | payer OTHER ==
--- OUTSIDE RECORDS SUMMARY | 2019-06-01 18:31 | XMS REPORT ---
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 Active with other specified diabetes mellitus Problem Controlled type 2 diabetes mellitus E11.9 Active without complication, unspecified terminal make up operator insulin use status Problem Allergic rhinitis, unspecified J30.9 Active seasonality, unspecified trigger Medications Medication Code Code Instructions Start End Status Dosage System Date Date Victoza [facility] 01751310028 18 MG/3ML May 21August 18, Active 0.6 mg Subcutaneous 2019 2019 daily x 1 weekly week, then 1.2 mg daily x 1 week and then 1.8 mg daily Pen [place] [facility] [id number] 32G X 4 MM with May 21, Active as directed Victoza daily 2019 Bydureon BCise [facility] 88257081999 2 MG/0.85ML May 20August 17, Inactive as directed Subcutaneous 2019 2019 Once a week Results No Known Results Summary Purpose [employer] Submission
--- OUTSIDE RECORDS SUMMARY | 2019-06-01 18:31 | XMS REPORT ---
:1970 Author Organization [employer] Care Team Providers Name Role Phone Vish Florian Provider Role Unavailable Allergies No Known Allergies Problems Problem Type Condition Code Onset Dates Condition Status Problem Benign essential hypertension I10 Active Problem Controlled type 2 diabetes mellitus E11.9 Active without complication, unspecified keno terminal operator insulin use status Problem Mixed hyperlipidemia E78.2 Active Problem Allergic rhinitis, unspecified J30.9 Active seasonality, unspecified trigger Problem Diabetic polyneuropathy associated E13.42 Active with other specified diabetes mellitus Medications No Known Medications Results No Known Results Summary Purpose [employer] Submission
--- OUTSIDE RECORDS SUMMARY | 2019-06-01 18:31 | XMS REPORT ---
:1970 Author Organization [employer] Care Team Providers Name Role Phone FlorianVish Provider Role Unavailable Allergies, Adverse Reactions, Alerts Substance Reaction Event Type N.K.D.A. Info Not Available Non Drug Allergy Problems Problem Type Condition Code Onset Dates Condition Status Assessment Mixed hyperlipidemia E78.2 Active Assessment Type 2 diabetes mellitus with E11.65 Active hyperglycemia, unspecified whether [facility] insulin use Assessment Benign essential hypertension I10 Active Assessment History of noncompliance with Z91.19 Active medical treatment Assessment Allergic rhinitis, unspecified J30.9 Active seasonality, unspecified trigger Assessment Proteinuria, unspecified type R80.9 Active Assessment Diabetic polyneuropathy associated E13.42 Active with other specified diabetes mellitus Problem Mixed hyperlipidemia E78.2 Active Problem Benign essential hypertension I10 Active Problem Type 2 diabetes mellitus with E11.65 Active hyperglycemia, unspecified whether [facility] insulin use Problem Diabetic polyneuropathy associated E13.42 Active with other specified diabetes mellitus Problem Controlled type 2 diabetes mellitus E11.9 Active without complication, unspecified [facility] insulin use status Problem Allergic rhinitis, unspecified J30.9 Active seasonality, unspecified trigger Medications Medication Code Code Instructions Start End Status Dosage System Date Date Gabapentin [facility] 59157977670 300 MG Orally Active 1 capsule Three times a day Januvia ND 91066742655 100 MG Orally October 17, Active 1 tablet Once a day 2017 Aspirin Adult ND 89641546082 81 MG Orally Active 1 tablet Low Strength Once a day Lisinopril ND 21226120050 40 MG Orally Active 1 tablet Once a day Lipitor ND 22425673156 20 MG Orally Active 1 tablet Once a day Glimepiride ND 48455711364 4 MG Orally Active 1 tablet twice a day with breakfast or the first main meal of the day Bydureon BCise ND 64906671759 2 MG/0.85ML May 20August 17, Active as directed Subcutaneous 2019 2019 Once a week Results No Known Results Summary Purpose [employer]ClinicalWorks Submission
--- OUTSIDE RECORDS SUMMARY | 2019-06-01 18:31 | XMS REPORT ---
:1970 Author Organization [employer] Care Team Providers Name Role Phone Vish Florian Provider Role Unavailable Allergies, Adverse Reactions, Alerts Substance Reaction Event Type N.K.D.A. Info Not Available Non Drug Allergy Problems Problem Type Condition Code Onset Dates Condition Status Assessment Diabetic polyneuropathy associated E13.42 Active with other specified diabetes mellitus Assessment Benign essential hypertension I10 Active Assessment Mixed hyperlipidemia E78.2 Active Assessment History of noncompliance with Z91.19 Active medical treatment Assessment Allergic rhinitis, unspecified J30.9 Active seasonality, unspecified trigger Problem Benign essential hypertension I10 Active Problem Controlled type 2 diabetes mellitus E11.9 Active without complication, unspecified termination clerk insulin use status Problem Mixed hyperlipidemia E78.2 Active Assessment Controlled type 2 diabetes mellitus E11.9 Active without complication, unspecified termination clerk insulin use status Problem Allergic rhinitis, unspecified J30.9 Active seasonality, unspecified trigger Problem Diabetic polyneuropathy associated E13.42 Active with other specified diabetes mellitus Medications Medication Code Code Instructions Start End Status Dosage System Date Date [facility] 44315335198 100 MG Orally October 17, Active 1 tablet Once a day 2017 Aspirin Adult ND 08630271962 81 MG Orally Active 1 tablet Low Strength Once a day Glimepiride ND 43092463684 4 MG Orally Active 1 tablet twice a day with breakfast or the first main meal of the day Gabapentin [facility] 71919288393 300 MG Orally Active 1 capsule Three times a day Lipitor [facility] 62007776159 20 MG Orally Active 1 tablet Once a day Lisinopril ND 85115536766 40 MG Orally Active 1 tablet Once a day Results No Known Results Summary Purpose eClinicalWorks Submission
--- NOTE | 2019-06-01 19:19 | RAD REPORT ---
EXAM DESCRIPTION: RAD - Knee Left 3 View - 06/01/2019 7:06 pm CLINICAL HISTORY: knee pain COMPARISON: No comparisons FINDINGS: Mild medial compartment space arthritic changes. No fracture or joint effusion.
--- NOTE | 2019-06-01 19:45 | ER ---
Nurse's Notes [facility] Name: Guille Dunham Age: 49 yrs Sex: Male : 1970 Arrival Date: 06/01/2019 Time: 18:30 Bed 30 Private MD: Diagnosis: Internal derangement of knee Presentation: 05/31 18:38 Chief complaint: Patient states: He hit his left knee with a box on Sunday and it has aj1 gotten progressively more painful since them. Coronavirus screen: The patient has NOT traveled to [place] in the past 14 days. Ebola Screen: Patient denies travel to an Ebola-affected area in the 21 days before illness onset. Initial Sepsis Screen: Does the patient meet any 2 criteria? No. Patient's initial sepsis screen is negative. Does the patient have a suspected source of infection? No. Patient's initial sepsis screen is negative. Risk Assessment: Do you want to hurt yourself or someone else? Patient reports no desire to harm self or others. 18:38 Method Of Arrival: Wheelchair aj 18:38 Acuity: JANICE 4 aj1 Triage Assessment: 18:41 General: Appears in no apparent distress. comfortable, Behavior is calm, cooperative, aj1 appropriate for age. Pain: Complains of pain in left knee. Historical: - Allergies: 18:41 No Known Allergies; aj1 - Home Meds: 18:41 lisinopril 20 mg Oral tab 1 tab once daily [Active]; gabapentin oral oral [Active]; aj1 Lisinopril Oral [Active]; victoza [Active]; glimepiride Oral [Active]; atorvastatin oral oral [Active]; - PMHx: 18:41 Diabetes - NIDDM; Hyperlipidemia; Hypertension; aj1 - Immunization history:: Flu vaccine is not up to date. - Social history:: Smoking status: Patient/guardian denies using tobacco. Screenin:42 Abuse screen: Denies threats or abuse. Denies injuries from another. Nutritional aj1 screening: No deficits noted. Tuberculosis screening: No symptoms or risk factors identified. 20:12 Fall Risk No fall in past 12 months (0 pts). Secondary diagnosis (15 points) impaired aj1 mobility, No IV (0 pts). Ambulatory Aid- Crutches/Cane/Walker (15 pts). Gait- Normal/Bed Rest/Wheelchair (0 pts) Mental Status- Oriented to own ability (0 pts). Total Oliva Fall Scale indicates Low Risk Score (25-44 pts). As available Patient and Family Educated on Fall Prevention Program and strategies. Assessment: 18:42 General: Appears in no apparent distress. comfortable, Behavior is calm, cooperative, aj1 appropriate for age. Pain: Complains of pain in left knee. Neuro: Level of Consciousness is awake, alert, obeys commands, Oriented to person, place, time, situation. Cardiovascular: Patient's skin is warm and dry. Respiratory: Airway is patent Respiratory effort is even, unlabored, Respiratory pattern is regular, symmetrical. GI: No signs and/or symptoms were reported involving the gastrointestinal system. : No signs and/or symptoms were reported regarding the genitourinary system. EENT: No signs and/or symptoms were reported regarding the EENT system. Derm: No signs and/or symptoms reported regarding the dermatologic system. Skin is pink, warm \T\ dry. normal. Musculoskeletal: Range of motion: limited in left knee. 19:45 Reassessment: Patient appears in no apparent distress at this time. No changes from aj1 previously documented assessment. Patient and/or family updated on plan of care and expected duration. Pain level reassessed. Patient is alert, oriented x 3, equal unlabored respirations, skin warm/dry/pink. Vital Signs: 18:38 BP 149 / 98; Pulse 95; Resp 18; Temp 97.6; Pulse Ox 98% on R/A; Weight 104.33 kg (R); aj1 Height 5 ft. 10 in. (177.80 cm) (R); Pain 8/10; 18:38 Body Mass Index 33.00 (104.33 kg, 177.80 cm) aj1 ED Course: 18:30 Patient arrived in ED. as 18:31 Chinedu Dominguez PA is PHCP. [facility] 18:31 Remy Valdez MD is Attending Physician. [facility] 18:38 Yudith Salgado, JOELLEN is Primary Nurse. aj1 18:40 Triage completed. aj1 18:41 Arm band placed on. aj1 18:42 Patient has correct armband on for positive identification. Bed in low position. Call aj1 light in reach. Side rails up X 1. 18:42 No provider procedures requiring assistance completed. aj1 19:07 Knee Left 3 View XRAY In Process Unspecified. EDMS 20:12 Patient did not have IV access during this emergency room visit. aj1 Administered Medications: 19:21 Drug: Ketorolac 30 mg Route: IM; Site: right deltoid; aj1 20:13 Follow up: Response: No adverse reaction aj1 Outcome: 19:45 Discharge ordered by . alexander 20:12 Discharged to home with crutches. aj1 20:12 Condition: good 20:12 Discharge instructions given to patient, Instructed on discharge instructions, follow up and referral plans. medication usage, Demonstrated understanding of instructions, follow-up care, medications, Prescriptions given X 1. 20:12 Patient left the ED. aj1 Signatures: Dispatcher [employer] Yudith Ontiveros RN RN aj1 Chinedu Dominguez PA PA jmm Martinez, Amelia as
--- NOTE | 2019-06-01 19:45 | EDPHYS ---
Physician Documentation [facility] Name: Guille Dunham Age: 49 yrs Sex: Male : 1970 Arrival Date: 06/01/2019 Time: 18:30 Bed 30 Private MD: ED Physician Remy Valdez HPI: 05/31 18:33 This 49 yrs old Male presents to ER via Wheelchair with complaints of Knee jmm Pain. 18:33 The patient presents with an injury, pain. Onset: The symptoms/episode began/occurred jmm acutely, just prior to arrival. Modifying factors: The symptoms are alleviated by remaining still, the symptoms are aggravated by movement. Associated signs and symptoms: Pertinent negatives fever, weakness. This is a 49 year old male with a history of dm, hlp, htn that presents to the ED with complaints of pain to his left knee after accidently hitting his knee against a box this past fraday. Pain is localized to the medial region of the knee. Historical: - Allergies: 18:41 No Known Allergies; aj1 - Home Meds: 18:41 lisinopril 20 mg Oral tab 1 tab once daily [Active]; gabapentin oral oral [Active]; aj1 Lisinopril Oral [Active]; victoza [Active]; glimepiride Oral [Active]; atorvastatin oral oral [Active]; - PMHx: 18:41 Diabetes - NIDDM; Hyperlipidemia; Hypertension; aj1 - Immunization history:: Flu vaccine is not up to date. - Social history:: Smoking status: Patient/guardian denies using tobacco. ROS: 18:33 Constitutional: Negative for fever, chills, and weight loss, Cardiovascular: Negative jmm for chest pain, palpitations, and edema, Respiratory: Negative for shortness of breath, cough, wheezing, and pleuritic chest pain. 18:33 MS/extremity: Positive for injury or acute deformity, pain. 18:33 All other systems are negative. Exam: 18:33 Constitutional: This is a well developed, well nourished patient who is awake, alert, jmm and in no acute distress. Head/Face: atraumatic. Eyes: EOMI, no conjunctival erythema appreciated ENT: Moist Mucus Membranes Neck: Trachea midline, Supple Chest/axilla: Normal chest wall appearance and motion. Cardiovascular: Regular rate and rhythm. No edema appreciated Respiratory: Normal respirations, no respiratory distress appreciated Abdomen/GI: Non distended, soft Back: Normal ROM Skin: General appearance color normal 18:33 Musculoskeletal/extremity: ROM: intact in all extremities, from appreciated to the left knee, pain on palpation of the left medial knee, compartments are soft, NVI. 18:33 Skin: Appearance: Color: normal in color. 18:33 Neuro: Orientation: is normal, Mentation: is normal, Memory: is normal. 18:33 Psych: Behavior/mood is pleasant, cooperative. Vital Signs: 18:38 BP 149 / 98; Pulse 95; Resp 18; Temp 97.6; Pulse Ox 98% on R/A; Weight 104.33 kg (R); aj1 Height 5 ft. 10 in. (177.80 cm) (R); Pain 8/10; 18:38 Body Mass Index 33.00 (104.33 kg, 177.80 cm) aj1 MDM: 18:33 Patient medically screened. [facility] 19:42 Data reviewed: vital signs, nurses notes. Counseling: I had a detailed discussion with alexander the patient and/or guardian regarding: the presence of at least one elevated blood pressure reading (>120/80) during this emergency department visit, radiology results, the need for outpatient follow up, to return to the emergency department if symptoms worsen or persist or if there are any questions or concerns that arise at home. ED course: xray negative. patient advised to follow up with ortho for reevaluation. patient is otherwise given strict return precautions. patient understood and agrees with the plan of care. . 05/31 18:45 Order name: Knee Left 3 View XRAY; Complete Time: 19:24 [facility] 05/31 18:45 Order name: Knee Immobilizer; Complete Time: 19:21 [facility] Administered Medications: 19:21 Drug: Ketorolac 30 mg Route: IM; Site: right deltoid; aj1 20:13 Follow up: Response: No adverse reaction aj1 Disposition: 06/01 07:39 Co-signature as Attending Physician, Remy Valdez MD I agree with the assessment and [facility] plan of care. Disposition: 06/01/19 19:45 Discharged to Home. Impression: Internal derangement of knee. - Condition is Stable. - Discharge Instructions: Knee Pain. - Prescriptions for Ibuprofen 800 mg Oral Tablet - take 1 tablet by ORAL route every 8 hours As needed take with food; 30 tablet. - Work release form, Medication Reconciliation Form, Thank You Letter, Antibiotic Education, Prescription Opioid Use form. - Follow up: Private Physician; When: 2 - 3 days; Reason: Recheck today's complaints, Continuance of care, Re-evaluation by your physician. Signatures: Dispatcher [employer] Yudith Ontiveros RN RN aj1 Remy Valdez MD MD cha Mickail, Joel, PA PA jmm Corrections: (The following items were deleted from the chart) 05/31 20:12 19:45 06/01/2019 19:45 Discharged to Home. Impression: Internal derangement of knee. aj1 Condition is Stable. Forms are Medication Reconciliation Form, Thank You Letter, Antibiotic Education, Prescription Opioid Use. Follow up: Private Physician; When: 2 - 3 days; Reason: Recheck today's complaints, Continuance of care, Re-evaluation by your physician. alexander
[2019-06-01 20:30] VITALS: BP 149/98; TEMP 97.6; O2SAT 98
== END 2019-06-01 20:12 | disposition home or self-care (01) ==
LOC: ER 18:28
DX: M23.92 Unspecified internal derangement of left knee (principal); I10 Essential (primary) hypertension; E11.9 Type 2 diabetes mellitus without complications; E78.5 Hyperlipidemia, unspecified
CPT/HCPCS: 96372; 99283

== ENCOUNTER 2020-02-11 05:16 | Emergency (ER) | payer OTHER ==
--- OUTSIDE RECORDS SUMMARY | 2020-02-11 05:19 | XMS REPORT | Continuity of Care Document ---
:1970 Author Organization [facility] t Address [address] [place] [address] Care Team Providers Name Role Phone Unavailable Unavailable Unavailable Problems This patient has no known problems. Allergies, Adverse Reactions, Alerts This patient has no known allergies or adverse reactions. Medications Ordered Filled Start Stop Current Ordering Indication Dosage Frequency Signature Comments Components Source Medication Medication Date Date Medication? Clinician (SIG) Name Name Pen [place] Yes Vish as [facility] Bydureon Bydureon 2020- No Vish as [facility] 05-18 [facility] Lisinopril Lisinopril Yes Vish [address] [facility] Aspirin Aspirin Yes Vish [address] [facility] Adult Low Adult Low [facility] - Strength Strength [facility] Lipitor Lipitor Yes Vish [address] [facility] Gabapentin Gabapentin Yes Vish [address] [facility] Januvia Januvia Yes Vish [address] [facility] Glimepiride Glimepiride Yes Vish [address] [facility] with [facility] - breakfast [facility] or the l first main Outpati meal of ent the day Clinics Pioglitazon Pioglitazon Yes Vish TAKE [address] [facility] e HCl e HCl [place]ian TABLET BY [facility] - MOUTH ONCE [facility] DAILY l Outpati ent Clinics NovoLIN NovoLIN Yes Vish INJECT [address] 70/30 70/30 [facility]ian UNITS [facility] - ReliOn ReliOn SUBCUTANEO [facility] USLY TWICE l DAILY Outpati ent Clinics Procedures This patient has no known procedures. Encounters Start End Encounter Admission Attending Care Care Encounter Source Date/Time Date/Time Type Type Clinicians Facility Department ID 2020-01-28 2020-01-28 Outpatient [facility] [id number] [facility] 2019-10-28 2019-10-28 [facility] [id number] [facility] 15:[facility]:00 15:00:00 [facility] Medicine l Medicine Outpati ent Clinics 2019-07-29 2019-07-29 [facility] [id number] [facility] 16:00:00 16:00:00 [facility] Medicine l Medicine Outpati ent Clinics 2019-07-17 2019-07-17 [facility] [id number] [facility] 14:05:00 14:05:00 t [facility] Medicine l Medicine Outpati ent Clinics 2019-05-21 2019-05-21 [facility] [id number] [facility] 14:39:00 14:39:00 [facility] Medicine l Medicine Outpati ent Clinics 2019-05-20 2019-05-20 [facility] [id number] [facility] 16:00:00 16:00:00 [facility] l Medicine Outpati ent Clinics 2018-10-18 2018-10-18 [facility] [id number] [address] 13:23:00 13:23:00 [facility] l Medicine Outpati ent Clinics 2018-10-18 2018-10-18 [facility] [id number] 10:45:00 10:45:00 t [facility] 2017-10-17 2017-10-17 Outpatient Tanesha Johnson [id number] [facility] 15:00:00 15:00:00 [facility] Results This patient has no known results.
--- OUTSIDE RECORDS SUMMARY | 2020-02-11 05:19 | XMS REPORT ---
:1970 Author Organization [facility] Address [address] [place] [address] Care Team Providers Name Role Phone Vish Florian Unavailable [phone] PROBLEMS Type Condition ICD9-CM ORM09-YL Onset Condition SNOMED Code Notes Code Code Dates Status Problem Mixed E78.2 Active 626115814 hyperlipidemia Problem Type 2 diabetes E11.65 Active [id number] mellitus with hyperglycemia, unspecified whether residential insulin use Problem Diabetic E13.42 Active 62747111 polyneuropathy associated with other specified diabetes mellitus Problem Allergic J30.9 Active 90670005 rhinitis, unspecified seasonality, unspecified trigger Problem Controlled type 2 E11.9 Active 469289047 diabetes mellitus without complication, 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 status Problem Benign essential I10 Active 3484387 hypertension ALLERGIES No Known Allergies ENCOUNTERS from 1970 to 2020-01-31 Encounter Location Date Provider Diagnosis [facility] [place] [address] [place], Vish Florian Type [address], mellitus [place] [facility] [place] [address] hyperglycemia, unspecified 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 E11.65 ; Benign essential hyper tension I10 ; Mixed hyperlipidemia E78.2 ; Diabetic polyne uropathy associated with other specified diabe debra mellitus E13.42 ; Proteinuria, unspecified typ e R80.9 ; Allergic rhin itis, unspecified seasonality, unspecified tri gger J30.9 and Histo ry of noncompliance w [facility] medical treatme nt Z91.19 IMMUNIZATIONS No Information SOCIAL HISTORY Tobacco Use: Social History Observation Description Date Details (start date - stop date) Never Smoker Sex Assigned At : Social History Observation Description Sex Assigned At Unknown PHQ9 Question Answer Notes Little interest or pleasure in doing things Several days Feeling down, depressed, or hopeless Several days Trouble falling or staying asleep or sleeping too much Sever al days Feeling tired or having little energy Not at all Poor appetite or overeating Not at all Feeling bad about yourself, or that you are a failure, or Se veral days have let yourself or your family down Trouble concentrating on things, such as reading the Not at all newspaper or watching television Moving or speaking so slowly that other people could have No t at all noticed; or the opposite, being so fidgety or restless that you have been moving around a lot more than usual Total Score 4 Interpretation Minimal Depression Thoughts that you would be better off or of hurting Not at all yourself in some way Alcohol Screen Question Answer Notes Did you have a drink containing alcohol in the past year? No Points 0 Interpretation Negative Tobacco Use/Smoking Question Answer Notes Are you a never smoker REASON FOR REFERRAL No Information VITAL SIGNS Height 60 in Dec, Weight 275 lbs Dec, Temperature 97.9 degrees Fahrenheit Dec, BMI 53.70 kg/m2 Dec, Blood pressure systolic 132 mm Hg Dec, Blood pressure diastolic 77 mm Hg Dec, MEDICATIONS Medication SIG (Take, Route, Start Date End Date Status Frequency, Duration) Lipitor 20 MG 1 tablet Orally Once a day Active for 90 days Glimepiride 4 MG 1 tablet with breakfast or Active the first main meal of the day Orally twice a day for 90 days Pioglitazone HCl 15 MG TAKE 1 TABLET BY MOUTH ONCE Active DAILY Oral Aspirin Adult Low 1 tablet Orally Once a day Active Strength 81 MG [place] 32G X 4 MM as directed with Victoza May, Not-Taking daily for 90 days Lisinopril 40 MG 1 tablet Orally Once a day Active for 90 days Gabapentin 300 MG 1 capsule Orally Three Active times a day for 30 days NovoLIN 70/30 ReliOn INJECT 25 UNITS Acti ve (70-30) 100 UNIT/ML SUBCUTANEOUSLY TWICE DAILY Subcutaneous PROCEDURES No Information RESULTS No Results REASON FOR VISIT 3 month f/u with lab/s MEDICAL (GENERAL) HISTORY Type Description Date Medical History Systolic congestive heart failure, unspe cified HF chronicity Medical History Allergic rhinitis, unspecified seasonali ty, unspecified trigger Medical History Controlled type 2 diabetes mellitus with out complication, 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 status Medical History Diabetic polyneuropathy associated with other specified diabetes mellitus Medical History Benign essential hypertension Medical History Mixed hyperlipidemia Surgical History No Surgical history information Goals Section No Information Health Concerns No Information MEDICAL EQUIPMENT No Information MENTAL STATUS No Information FUNCTIONAL STATUS No Information ASSESSMENTS Encounter Date Diagnosis Notes Dec, Mixed hyperlipidemia (ICD-10 - E78.2) Dec, Benign essential hypertension (ICD-10 - I10) Dec, History of noncompliance with medical tr eatment (ICD-10 - Z91.19) Dec, Diabetic polyneuropathy associated with other specified diabetes mellitus (ICD-10 - E13.42) Dec, Type 2 diabetes mellitus with hyperglyce alessandra, unspecified whether residential insulin use (ICD-10 - E11.65) Dec, Allergic rhinitis, unspecified seasonali ty, unspecified trigger (ICD-10 - J30.9) Dec, Proteinuria, unspecified type (ICD-10 - R80.9) PLAN OF TREATMENT Medication Medication Name Sig Start Date Stop Date Lipitor 20 MG 1 tablet Orally Once a day for 90 days Lisinopril 40 MG 1 tablet Orally Once a day for 90 days Pioglitazone HCl 15 MG TAKE 1 TABLET BY MOUTH ONCE DAILY Oral Gabapentin 300 MG 1 capsule Orally Three times a day for 30 days NovoLIN 70/30 ReliOn (70-30) INJECT 25 UNITS SUBCUTANEOUSLY 100 UNIT/ML TWICE DAILY Subcutaneous Glimepiride 4 MG 1 tablet with breakfast or the first main meal of the day Orally twice a day for 90 days Treatment Notes Assessment Notes Clinical Notes Type 2 diabetes mellitus with MANAGED BY [facility]. Unable to hyperglycemia, unspecified whether tolerate Metformin. 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 Insurance not covering [place], [email or web address] or Jasbir Garza. Side effect discussed. Education given. Samples given. Instructed patient if unable to afford to call clinic immediately. Patient agreeable plan. Education given., Diabetes Education Diabetes is a disorder that disrupts the way your body uses glucose (sugar). It is a chronic medication condition that requires regular monitoring and treatment throughout your life. Treatment includes: lifestyle modification, self-care measures, and medication. Fortunately, these treatments can keep the blood sugar levels close to normal and minimize the risk of developing complications. The primary blood test to measure the progress of diabetes is the Hemoglobin A1c. Normal levels is less than 7.0 but less than 6.5 is considered excellent control. Fasting blood sugars should be in the range of 80-120 while random blood sugars should range below 200 especially after meals. Carbohydrate (sugar) intake for diabetics should be below 45 grams per meal and 15 grams per snack. Diabetic preventive care is vital to prevent complications, so it is important to have yearly diabetic eye and foot exams with specialists. If your diabetes is not controlled, then contact your doctor to further address.Medication may need to be adjusted and/or added. Benign essential hypertension Instructed to measrue BP and b ring in logs. Education given. , DASH Diet discussed. Instructed to measure BP at home and bring in log to f/u appt. Instructions and logs given. Education given. , HTN Education This is a condition that puts at risk for heart attack, stroke, and kidney disease. Lifestyle modification, low fat/low salt diet, exercise, low alcohol intake and medication is utilized to help control your BP. Untreated HTN increases the strain on the heart and arteries, eventually causing organ damage.Normal BP is less than 140/90. High BP is greater than 140/90. If your BP is not controlled, call your doctor. Medication may need to be adjusted and/or added. Compliance with medication is vital. If you have chest pain, shortness of breath, severe nausea/vomiting, fatigue, and other symptoms, you will need to contact your doctor or go to the ER immediately to address. Mixed hyperlipidemia Resume Lipitor. Education given. , Hyperlipidemia Education: Hyperlipidemia refers to increased levels of lipids(fats) in the blood, including cholesterol and triglycerides. This can significantly increase your risk of developing coronary artery disease and peripheral artery disease. This can cause chest pain, heart attack, stroke, and fatigue. Treatment is recommended to decrease your risk. Treatment includes: lifestyle modification, low salt/low fat diet, exercise, tobacco cessation, low alcohol intake and sometimes medication. Blood tests (TC,TG, HDL, LDL) are utilized to determine treatment regimens. TC(Total cholesterol) should be below 200. TG(Total Triglycerides) should be below 150. HDL(Good cholesterol) should be above 40. LDL(Bad Cholesterol) should be below 130(if you have one risk factor) or less than 100( if you have more than one risk factor or have DM/CAD/PVD). Compliance with medication and treatment is vital. If you have questions, talk to your doctor. Diabetic polyneuropathy associated . Refill given. Stable with with other specified diabetes gabapentin. Education given mellitus Proteinuria, unspecified type On Lisinopril. Education given . History of noncompliance with . Strongly encouraged and edu cated medical treatment patient on the importance of compliance with medication and appointments Treatment Notes Test Name Order Date Lipid Panel With LDL/HDL Ratio 2020-01-31 Microalbumin/Creat Ratio, Random Ur 2020-01-31 Hemoglobin A1c 2020-01-31 Comp. Metabolic Panel (14) (CMP) 2020-01-31 CBC With Differential/Platelet 2020-01-31 Next Appt Details 3 Months + Labs 1 week before Reason: Provider Name:Vish Anival, 2020-04-14 0 3:30:00 PM, [address], [address], [place], [address], Provider Name:Vish Florian, 2020-04-21 0 4:20:00 PM, [address], [place], [address], Insurance Providers Payer Name Payer Payer Insured Patient Coverage Coverage End Address Phone Name Relationship to Start Date Suleiman e Insured ALLIED [phone] Katey Dunham self 2016 [employer] [id number] [place] [address] [employer] [id number]
[2020-02-11] MEDS ORDERED: ONDANSETRON 4 MG/2 ML VIAL ONE (06:07)
[2020-02-11] MEDS ORDERED: NA CHLORIDE 0.9% 500 ML ONE (06:07)
[2020-02-11 06:21] LABS: Absolute Lymphocytes (CBC) 2.3 K/uL (0.7-4.9); Basophils % 0.8 % (0-1.3); Hematocrit 50.3 % (39.6-49.0); Lymphocytes % 26.6 % (15.3-44.8); MPV 10.3 fL (7.6-11.3); RBC Red Blood Cell Count 5.88 M/uL (4.33-5.43)
[2020-02-11 06:40] LABS: ALT/SGPT 40 U/L (12-78); AST/SGOT 15 U/L (15-37); Albumin 3.7 g/dL (3.4-5.0); Alkaline Phosphatase 172 U/L (45-117); BUN Blood Urea Nitrogen 18 mg/dL (7-18); Bicarbonate 26 mmol/L (21-32); Bilirubin Direct < 0.1 mg/dL (0-0.2); Bilirubin Total 0.5 mg/dL (0.2-1.0); Glucose Level 247 mg/dL (74-106); Lipase 59 U/L (73-393); Potassium 4.5 mmol/L (3.5-5.1); Protein, Total 7.9 g/dL (6.4-8.2); Sodium Level 136 mmol/L (136-145)
--- NOTE | 2020-02-11 08:30 | RAD REPORT ---
EXAM DESCRIPTION: CTAbdomen Pelvis W Contrast - 02/11/2020 7:15 am CLINICAL HISTORY: Abdominal pain. upper abd pain, nausea/vomiting COMPARISON: No comparisons TECHNIQUE: Biphasic CT imaging of the abdomen and pelvis was performed with 100 ml non-ionic IV cont rast. All CT scans are performed using dose optimization technique as appropriate and may include automated exposure control or mA/KV adjustment according to patient size. FINDINGS: Subtle ground-glass opacities are seen in both lung bases.Moderate fat containing hiatal h ernia. Mild diffuse fatty liver. No focal mass or biliary dilatation. The spleen, pancreas, adrenal glands a nd kidneys are within normal limits. No bowel obstruction, free air, free fluid or abscess. The appendix is normal. Slight increased den sity is seen in the left small bowel mesentery with prominent lymph node identified. No suspicious bony findings. IMPRESSION: Subtle bibasilar ground-glass opacities can be seen in a viral bronchitis. A mild left-sided small bowel mesenteric adenitis is possible.
--- NOTE | 2020-02-11 09:42 | ER ---
Nurse's Notes [facility] Name: Guille Dunham Age: 49 yrs Sex: Male : 1970 Arrival Date: 02/11/2020 Time: 05:36 Bed 15 Private MD: Diagnosis: Diarrhea, unspecified;Type 1 diabetes mellitus;Nausea;Abdominal tenderness Presentation: 02/10 05:40 Chief complaint: Patient states: I feel like I am coming down with something. I have jb4 had diarrhea, nausea, body aches and chills and fatigue since this morning. Coronavirus screen: Client denies travel out of the [place] in the last 14 days. Client presents with at least one sign or symptom that may indicate coronavirus-19. Standard/surgical mask placed on the client. Ebola Screen: Patient negative for fever greater than or equal to 101.5 degrees Fahrenheit, and additional compatible Ebola Virus Disease symptoms No symptoms or risks identified at this time. Initial Sepsis Screen: Does the patient meet any 2 criteria? No. Patient's initial sepsis screen is negative. Does the patient have a suspected source of infection? No. Patient's initial sepsis screen is negative. Risk Assessment: Do you want to hurt yourself or someone else? Patient reports no desire to harm self or others. Onset of symptoms was February 11, 2020. Transition of care: patient was not received from another setting of care. 05:40 Method Of Arrival: Ambulatory 4 05:40 Acuity: JANICE 3 jb4 Historical: - Allergies: 05:40 NKDA; jb4 - Home Meds: 05:40 atorvastatin Oral [Active]; gabapentin Oral [Active]; Glimepiride Oral [Active]; jb4 lisinopril 20 mg Oral tab 1 tab once daily [Active]; victoza [Active]; insulin [Active]; - PMHx: 05:40 Hyperlipidemia; Hypertension; Diabetes - IDDM; jb4 - PSHx: 05:40 left knee; jb4 - Immunization history:: Adult Immunizations up to date. - Social history:: Smoking status: Patient denies any tobacco usage or history of. Patient/guardian denies using alcohol, street drugs. - Family history:: not pertinent. - Hospitalizations: : No recent hospitalization is reported. Screenin:40 Abuse screen: Denies threats or abuse. Nutritional screening: No deficits noted. jb4 Tuberculosis screening: No symptoms or risk factors identified. Fall Risk None identified. Assessment: 05:40 General: Appears in no apparent distress. comfortable, Behavior is calm, cooperative, jb4 appropriate for age. Pain: Complains of pain in [place] RIBS Pain does not radiate. Pain currently is 6 out of 10 on a pain scale. Neuro: Level of Consciousness is awake, alert, obeys commands, Oriented to person, place, time, situation. Cardiovascular: Patient's skin is warm and dry. Respiratory: Airway is patent Respiratory effort is even, unlabored, Respiratory pattern is regular, symmetrical. GI: Abdomen is non-distended, obese, Reports nausea. : No signs and/or symptoms were reported regarding the genitourinary system. EENT: No signs and/or symptoms were reported regarding the EENT system. Derm: Skin is intact, Skin is pink, warm \T\ dry. Musculoskeletal: Circulation, motion, and sensation intact. Range of motion: intact in all extremities. 06:30 Reassessment: Patient appears in no apparent distress at this time. Patient and/or jb4 family updated on plan of care and expected duration. Pain level reassessed. Patient is alert, oriented x 3, equal unlabored respirations, skin warm/dry/pink. 07:18 Reassessment: pt back from CT at this time. Aleida Arevalo from CT reported IV tw2 infiltrated on right, and new 22 g IV started LEFT ac. 07:29 Reassessment: Patient appears in no apparent distress at this time. Patient and/or tw2 family updated on plan of care and expected duration. Pain level reassessed. Patient is alert, oriented x 3, equal unlabored respirations, skin warm/dry/pink. old iv removed from RIGHT arm, warm compress applied, pt tolerated well. 22g LEFT ac secured with tegaderm. 08:30 Reassessment: Patient appears in no apparent distress at this time. Patient and/or tw2 family updated on plan of care and expected duration. Pain level reassessed. Patient is alert, oriented x 3, equal unlabored respirations, skin warm/dry/pink. 09:30 Reassessment: Patient appears in no apparent distress at this time. Patient and/or tw2 family updated on plan of care and expected duration. Pain level reassessed. Patient is alert, oriented x 3, equal unlabored respirations, skin warm/dry/pink. 09:35 Reassessment: provider at bedside at this time. tw2 09:50 Reassessment: Patient appears in no apparent distress at this time. Patient and/or tw2 family updated on plan of care and expected duration. Pain level reassessed. Patient is alert, oriented x 3, equal unlabored respirations, skin warm/dry/pink. Vital Signs: 05:40 BP 136 / 107; Pulse 88; Resp 16; Temp 98.3; Pulse Ox 97% on R/A; Weight 122.47 kg (R); jb4 Height 5 ft. 9 in. (175.26 cm) (R); Pain 6/10; 06:00 BP 139 / 94; Pulse 86; Resp 16; Pulse Ox 96% on R/A; jb4 07:30 BP 134 / 91; Pulse 81; Resp 17; Pulse Ox 95% on R/A; tw2 08:30 BP 134 / 88; Pulse 80; Resp 16; Pulse Ox 96% on R/A; tw2 09:36 BP 131 / 78; Pulse 78; Resp 16; Pulse Ox 96% on R/A; tw2 05:40 Body Mass Index 39.87 (122.47 kg, 175.26 cm) jb4 ED Course: 05:36 Patient arrived in ED. ag3 05:40 Rajesh Flores MD is Attending Physician. rn 05:40 Arm band placed on right wrist. jb4 05:40 Patient has correct armband on for positive identification. Bed in low position. Call jb4 light in reach. Side rails up X 1. Pulse ox on. NIBP on. 05:46 Josue De Los Santos RN is Primary Nurse. jb4 05:57 Triage completed. jb4 06:17 Inserted saline lock: 20 gauge in right wrist, using aseptic technique. Blood collected.ds4 07:14 CT Abd/Pelvis - IV Contrast Only In Process Unspecified. EDMS 07:21 Primary Nurse role handed off by Josue De Los Santos RN bd 07:30 Attending Physician role handed off by Rajesh Flores MD ashlee 07:30 Remy Valdez MD is Attending Physician. ashlee 07:31 Rajni Maier RN is Primary Nurse. tw2 09:40 Mele Hernandez MD is Referral Physician. [facility] 09:47 No provider procedures requiring assistance completed. IV discontinued, intact, tw2 bleeding controlled, No redness/swelling at site. Pressure dressing applied. Administered Medications: 06:03 Drug: NS 0.9% 500 ml Route: IV; Rate: bolus; Site: right forearm; bb 07:05 Follow up: Response: No adverse reaction; IV Status: Completed infusion; IV Intake: tw2 500ml 06:03 Drug: Zofran (Ondansetron) 4 mg Route: IVP; Site: right forearm; bb 07:05 Follow up: Response: No adverse reaction; Nausea is decreased; 1 ml tw2 Intake: 07:05 IV: 500ml; Total: 500ml. tw2 Outcome: 09:42 Discharge ordered by . [facility] 09:47 Discharged to home ambulatory. 09:47 Condition: stable 09:47 Discharge instructions given to patient, Instructed on discharge instructions, follow up and referral plans. no drinking with medication, no driving heavy equipment, medication usage, Demonstrated understanding of instructions, follow-up care, medications, Prescriptions given X 4. 09:50 Patient left the ED. tw2 Addendum: 02/15/2020 08:07 Addendum: COVID-19 Result: Negative result given to RN to notify pt. Notified pt of a a5 negative COVID 19 swab results. Pt advised that even with a negative test result they should remain in isolation until symptom free for 3 days without medication. Pt also advised to return to the ED for worsening symptoms. Signatures: Dispatcher [employer] EDMS Elizabeth Sams Corey, MD MD cha Ballard, Brenda RN RN Rajesh De Paz MD MD rn Calderon, Audri, RN RN clive5 Bennett Padron ds4 Rajni Maier RN RN tw2 Josue De Los Santos RN RN jb4 Reina Deng ag3 Corrections: (The following items were deleted from the chart) 02/10 05:58 05:54 Chief complaint: Patient states: I feel like I am coming down with something. I jb4 have had diarrhea, nausea, body aches and chills and fatigue since this morning. jb4 05:58 05:54 Coronavirus screen: Client denies travel out of the [place] in the last 14 days. jb4 Client presents with at least one sign or symptom that may indicate coronavirus-19. Standard/surgical mask placed on the client. [facility] :58 05:54 Ebola Screen: Patient negative for fever greater than or equal to 101.5 degrees [facility] Fahrenheit, and additional compatible Ebola Virus Disease symptoms No symptoms or risks identified at this time. [facility] :58 05:54 Initial Sepsis Screen: Does the patient meet any 2 criteria? No. Patient's [facility] initial sepsis screen is negative. Does the patient have a suspected source of infection? No. Patient's initial sepsis screen is negative. [facility] :58 05:54 Risk Assessment: Do you want to hurt yourself or someone else? Patient reports no [facility] desire to harm self or others. [facility] 58 05:54 Onset of symptoms was February 11, 2020 [place] [address] :58 05:54 Transition of care: patient was not received from another setting of care. [place] [address] :58 05:54 Method Of Arrival: Ambulatory [place] [address] :58 05:54 BP 136 / 107; Pulse 88bpm; Resp 16bpm; Pulse Ox 97% RA; Temp 98.3F; 122.47 kg [facility] Reported; Height 5 ft. 9 in. Reported; BMI: 39.8; Pain 6/10; [facility] :58 05:54 Acuity: JANICE 3 [place] [address] 07:29 07:18 Reassessment: pt back from CT at this time. Aleida Arevalo from CT reported IV tw2 infiltrated on right, and new 22 g IV started LEFT ac tw2
--- NOTE | 2020-02-11 09:42 | EDPHYS ---
Physician Documentation [facility] Name: Guille Dunham Age: 49 yrs Sex: Male : 1970 Arrival Date: 02/11/2020 Time: 05:36 Bed 15 Private MD: ED Physician Remy Valdez HPI: 02/10 05:50 This 49 yrs old Male presents to ER via Unassigned with complaints of Nausea, rn vomiting, abd pain. 05:50 The patient presents to the emergency department with nausea, vomiting, abdominal pain, rn of the right upper quadrant and left upper quadrant, described as achy, crampy, and does not radiate. Onset: The symptoms/episode began/occurred yesterday. Possible causes: unknown. The symptoms are aggravated by pressure, The symptoms are alleviated by nothing. Associated signs and symptoms: Pertinent positives: abdominal pain, diarrhea, nausea, vomiting, Pertinent negatives: fever, GI bleeding. Severity of symptoms: At their worst the symptoms were moderate in the emergency department the symptoms have improved. The patient has not experienced similar symptoms in the past. The patient has not recently seen a physician. Reports "sinus problems for 1 month", not improving with OTC sinus medication, yesterday began with nausea/vomiting/upper abd pain. Reports loose stool that "smelled funny", but wasn't bloody or dark black. NO known sick contacts. . Historical: - Allergies: 05:40 NKDA; jb4 - Home Meds: 05:40 atorvastatin Oral [Active]; gabapentin Oral [Active]; Glimepiride Oral [Active]; jb4 lisinopril 20 mg Oral tab 1 tab once daily [Active]; victoza [Active]; insulin [Active]; - PMHx: 05:40 Hyperlipidemia; Hypertension; Diabetes - IDDM; jb4 - PSHx: 05:40 left knee; jb4 - Immunization history:: Adult Immunizations up to date. - Social history:: Smoking status: Patient denies any tobacco usage or history of. Patient/guardian denies using alcohol, street drugs. - Family history:: not pertinent. - Hospitalizations: : No recent hospitalization is reported. ROS: 05:50 Constitutional: Negative for fever, chills, and weight loss, Eyes: Negative for injury, rn pain, redness, and discharge, ENT: Negative for injury, pain, and discharge, Neck: Negative for injury, pain, and swelling, Cardiovascular: Negative for chest pain, palpitations, and edema, Respiratory: Negative for shortness of breath, cough, wheezing, and pleuritic chest pain, Abdomen/GI: + abd pain/nausea/vomiting/diarrhea Back: Negative for injury and pain, : Negative for injury, bleeding, discharge, and swelling, MS/Extremity: Negative for injury and deformity, Skin: Negative for injury, rash, and discoloration, Neuro: Negative for headache, numbness, tingling, and seizure. Exam: 05:50 Constitutional: This is a well developed, well nourished patient who is awake, alert, rn and in no acute distress. Head/Face: Normocephalic, atraumatic. Eyes: Pupils equal round and reactive to light, extra-ocular motions intact. Lids and lashes normal. Conjunctiva and sclera are non-icteric and not injected. Cornea within normal limits. Periorbital areas with no swelling, redness, or edema. ENT: dry MM Neck: Trachea midline, no thyromegaly or masses palpated, and no cervical lymphadenopathy. Supple, full range of motion without nuchal rigidity, or vertebral point tenderness. No Meningismus. Cardiovascular: Tachycardic, regular Respiratory: Speaking full sentence.s No increased work of breathing, no retractions or nasal flaring. Abdomen/GI: soft, mild tenderness RUQ and LUQ, no peritoneal signs Skin: Warm, dry MS/ Extremity: Pulses equal, no cyanosis. Neurovascular intact. Full, normal range of motion. Equal circumference. Neuro: Awake and alert, GCS 15, oriented to person, place, time, and situation. Cranial nerves II-XII grossly intact. Motor strength 5/5 in all extremities. Sensory grossly intact. Cerebellar exam normal. Vital Signs: 05:40 BP 136 / 107; Pulse 88; Resp 16; Temp 98.3; Pulse Ox 97% on R/A; Weight 122.47 kg (R); jb4 Height 5 ft. 9 in. (175.26 cm) (R); Pain 6/10; 06:00 BP 139 / 94; Pulse 86; Resp 16; Pulse Ox 96% on R/A; jb4 07:30 BP 134 / 91; Pulse 81; Resp 17; Pulse Ox 95% on R/A; tw2 08:30 BP 134 / 88; Pulse 80; Resp 16; Pulse Ox 96% on R/A; tw2 09:36 BP 131 / 78; Pulse 78; Resp 16; Pulse Ox 96% on R/A; tw2 05:40 Body Mass Index 39.87 (122.47 kg, 175.26 cm) jb4 MDM: 05:40 Patient medically screened. rn 07:09 Transition of care: After a detail discussion of the patient's case, care is rn transferred to Remy Valdez MD. 09:39 Differential diagnosis: Nonspecific abd pain, gastritis, pancreatitis, diverticulitis, ashlee viral gastroenteritis, gastroenteritis. Data reviewed: vital signs, nurses notes, lab test result(s), radiologic studies, CT scan. Data interpreted: surveillance system monitor: rate is 78 beats/min, rhythm is regular, Pulse oximetry: on room air is 96 %. Test interpretation: by ED physician or midlevel provider: plain radiologic studies. Counseling: I had a detailed discussion with the patient and/or guardian regarding: the historical points, exam findings, and any diagnostic results supporting the discharge/admit diagnosis, lab results, radiology results, the need for outpatient follow up, for definitive care, a family practitioner. 02/10 05:49 Order name: Flu; Complete Time: 06:57 rn 02/10 05:49 Order name: COVID-19 rn 02/10 05:49 Order name: Basic Metabolic Panel; Complete Time: 06:55 02/10 05:49 Order name: CBC with Diff; Complete Time: 06:32 rn 02/10 05:49 Order name: Hepatic Function; Complete Time: 06:55 rn 02/10 05:49 Order name: Lipase; Complete Time: 06:55 rn 02/10 05:49 Order name: IV Saline Lock; Complete Time: 06:04 rn 02/10 05:49 Order name: Labs collected and sent; Complete Time: 06:05 rn 02/10 05:49 Order name: [place] Screen Profile; Complete Time: 06:55 02/10 05:49 Order name: CT Abd/Pelvis - IV Contrast Only; Complete Time: 09:35 rn Administered Medications: 06:03 Drug: NS 0.9% 500 ml Route: IV; Rate: bolus; Site: right forearm; bb 07:05 Follow up: Response: No adverse reaction; IV Status: Completed infusion; IV Intake: tw2 500ml 06:03 Drug: Zofran (Ondansetron) 4 mg Route: IVP; Site: right forearm; bb 07:05 Follow up: Response: No adverse reaction; Nausea is decreased; 1 ml tw2 Disposition: 02/11/20 09:42 Discharged to Home. Impression: Diarrhea, unspecified, Type 1 diabetes mellitus, Nausea, Abdominal tenderness. - Condition is Stable. - Discharge Instructions: Abdominal Pain, Adult, Type 1 Diabetes Mellitus, Diagnosis, Adult, Diarrhea, Adult, Nausea and Vomiting, Adult, Abdominal Pain, Adult, [id number], Diarrhea, Adult, [id number], Aspirin and Your Heart, Type 1 Diabetes Mellitus, Self Care, Adult, Type 1 Diabetes Mellitus, Diagnosis, Adult, [id number], COVID-19. - Prescriptions for Pepcid 20 mg Oral Tablet - take 1 tablet by ORAL route every 12 hours for 10 days; 20 tablet. Zofran 4 mg Oral Tablet - take 1 tablet by ORAL route every 12 hours As needed; 20 tablet. Zithromax 500 mg Oral Tablet - take 1 tablet by ORAL route once daily for 5 days; 5 tablet. Bentyl 20 mg Oral Tablet - take 1 tablet by ORAL route every 6 hours As needed; 20 tablet. - Medication Reconciliation Form, Thank You Letter, Antibiotic Education, Prescription Opioid Use, Work release form form. - Follow up: Private Physician; When: 2 - 3 days; Reason: Recheck today's complaints, Continuance of care, Re-evaluation by your physician. Follow up: Mele Hernandez MD; When: 2 - 3 days; Reason: Recheck today's complaints, Re-evaluation by your physician. - Problem is new. - Symptoms have improved. Signatures: Dispatcher [employer] EDRemy Alexander MD MD cha Ballard, Brenda RN RN Rajesh De Paz MD MD rn Wise, Tara, RN RN tw2 Josue De Los Santos RN RN jb4 Corrections: (The following items were deleted from the chart) 09:50 09:42 02/11/2020 09:42 Discharged to Home. Impression: Diarrhea, unspecified; Type 1 tw2 diabetes mellitus; Nausea; Abdominal tenderness. Condition is Stable. Forms are Work release form, Medication Reconciliation Form, Thank You Letter, Antibiotic Education, Prescription Opioid Use. Follow up: Private Physician; When: 2 - 3 days; Reason: Recheck today's complaints, Continuance of care, Re-evaluation by your physician. Follow up: Mele Hernandez; When: 2 - 3 days; Reason: Recheck today's complaints, Re-evaluation by your physician. Problem is new. Symptoms have improved. ashlee
[2020-02-11 12:06] VITALS: TEMP 98.3
[2020-02-11 12:11] VITALS: O2SAT 96
[2020-02-11 12:13] VITALS: BP 131/78
== END 2020-02-11 09:50 | disposition home or self-care (01) ==
LOC: ER 05:16
DX: R19.7 Diarrhea, unspecified (principal); Z20.828 Contact with and (suspected) exposure to other viral communicable diseases; R10.819 Abdominal tenderness, unspecified site; E10.9 Type 1 diabetes mellitus without complications; I10 Essential (primary) hypertension; E78.5 Hyperlipidemia, unspecified
CPT/HCPCS: 96361; 85025; 80048; 36415; 86308; 80076; 83690; 87804 ×2; 74177; 96374; 99284; U0002; Q9967; J7040; J2405

== ENCOUNTER 2020-04-22 09:33 | Emergency (ER) | payer OTHER ==
--- OUTSIDE RECORDS SUMMARY | 2020-04-22 09:52 | XMS REPORT ---
:1970 Author Organization [facility] Address [address] [place] [address] Care Team Providers Name Role Phone Lela Florianh Unavailable [phone] PROBLEMS Type Condition ICD9-CM LQQ63-[id number] Onset Condition SNOMED Code Notes Code Code Dates Status Problem Mixed E78.2 Active 162486715 hyperlipidemia Problem Type 2 diabetes E11.65 Active 481084164252076 mellitus with hyperglycemia, unspecified whether nursing home insulin use Problem Diabetic E13.42 Active 31461963 polyneuropathy associated with other specified diabetes mellitus Problem Allergic J30.9 Active 57198134 rhinitis, unspecified seasonality, unspecified trigger Problem Controlled type 2 E11.9 Active 210158987 diabetes mellitus without complication, 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 Problem Benign essential I10 Active 2198923 hypertension ALLERGIES No Known Allergies ENCOUNTERS from 1970 to 2020-04-20 Encounter Location Date Provider Diagnosis [facility] [address] Apr, [facility] [place] [address] IMMUNIZATIONS No Information SOCIAL HISTORY Tobacco Use: [...] REASON FOR REFERRAL No Information VITAL SIGNS No information MEDICATIONS Medication SIG (Take, Route, Notes Start Date End Date Status Frequency, Duration) [place] 32G X 4 MM as directed with Victoza May, Not-Taking daily for 90 days Gabapentin 300 MG 1 capsule Orally Three Active times a day for 30 NovoLIN 70/30 ReliOn INJECT 25 UNITS Active (70-30) 100 UNIT/ML SUBCUTANEOUSLY TWICE DAILY Subcutaneous Aspirin Adult Low 1 tablet Orally Once a Active Strength 81 MG day Pioglitazone HCl 15 MG TAKE 1 TABLET BY MOUTH Active ONCE DAILY Oral Lisinopril 40 MG 1 tablet Orally Once a Active day for 90 Glimepiride 4 MG 1 tablet with breakfast Active or the first main meal of the day Orally twice a day for 90 days Lipitor 20 MG 1 tablet Orally Once a Active day for 90 PROCEDURES No Information RESULTS No Results REASON FOR VISIT COVID (+) MEDICAL (GENERAL) HISTORY Type Description Date Medical History Systolic congestive heart failure, unspe cified HF chronicity Medical History Allergic rhinitis, unspecified seasonali ty, unspecified trigger Medical History Controlled type 2 diabetes mellitus with out complication, unspecified nursing home insulin use status Medical History Diabetic polyneuropathy associated with other specified diabetes mellitus Medical History Benign essential hypertension Medical History Mixed hyperlipidemia Surgical History No Surgical history information Goals Section No Information Health Concerns No Information MEDICAL EQUIPMENT No Information MENTAL STATUS No Information FUNCTIONAL STATUS No Information ASSESSMENTS No Information PLAN OF TREATMENT Medication Medication Name Sig Start Date Stop Date Pioglitazone HCl 15 MG TAKE 1 TABLET BY MOUTH ONCE DAILY Oral Lisinopril 40 MG 1 tablet Orally Once a day for 90 NovoLIN 70/30 ReliOn (70-30) INJECT 25 UNITS SUBCUTANEOUSLY 100 UNIT/ML TWICE DAILY Subcutaneous Glimepiride 4 MG 1 tablet with breakfast or the first main meal of the day Orally twice a day for 90 days Lipitor 20 MG 1 tablet Orally Once a day for 90 Gabapentin 300 MG 1 capsule Orally Three times a day for 30 Next Appt Details Provider Name:Vish Reillyel, 2020-04-21 04:20:00 PM, [address], [address], [place], [address], Insurance Providers Payer Name Payer Payer Insured Patient Coverage Coverage End Address Phone Name Relationship to Start Date Suleiman e Insured ALLIED [phone] Katey Dunham self 2016 BENEFIT [id number] [facility] [employer] [id number]
--- OUTSIDE RECORDS SUMMARY | 2020-04-22 09:52 | XMS REPORT | Continuity of Care Document ---
:1970 Author Organization [facility] t Address [address] [place] [address] Care Team Providers Name Role Phone Unavailable Unavailable Unavailable Problems This patient has no known problems. Allergies, Adverse Reactions, Alerts This patient has no known allergies or adverse reactions. Medications Ordered Filled Start Stop Current Ordering Indication Dosage Frequency Signature Comments Components Source Medication Medication Date Date Medication? Clinician (SIG) Name Name Pen Coker Pen Coker Yes Vish as [facility] [...] Gabapentin Yes Vish [address] [facility] [...] Date/Time Type Type Clinicians Facility Department ID 2020-04-21 2020-04-21 Outpatient [facility] [id number] [facility] 2020-04-20 2020-04-20 [facility] [id number] [facility] 2020-01-28 2020-01-28 [facility] [id number] [facility] 2019-10-28 2019-10-28 [facility] [id number] [facility] 15[facility]00 [facility] 2019-07-29 2019-07-29 [facility] [id number] [facility] 16:[facility] 16:[facility]:00 [facility] 2019-07-17 2019-07-17 [facility] [id number] [facility] 14:05:00 14:05:00 [facility] 2019-05-21 2019-05-21 [facility] [id number] [facility] 14:39:00 14:39:00 t [facility] 2019-05-20 2019-05-20 [facility] [id number] [facility] 16:00:00 16:00:00 [employer] [facility] Clinics 2018-10-18 2018-10-18 [facility] [id number] [facility] 13:23:00 13:23:00 [facility] 2018-10-18 2018-10-18 [facility] [id number] [facility] 10[facility]45:00 10:45:00 [facility] 2017-10-17 2017-10-17 [facility] [id number] [facility] 15:00:00 15:00:00 [facility] Results This patient has no known results.
--- OUTSIDE RECORDS SUMMARY | 2020-04-22 09:52 | XMS REPORT ---
:1970 Author Organization [facility] Address [address] [place], [address] [place] [address] Care Team Providers Name Role Phone Vish Florian Unavailable [phone] PROBLEMS Type Condition ICD9-CM [id number] Onset Condition SNOMED Code Notes Code Code Dates Status Problem Mixed E78.2 Active 759695823 hyperlipidemia Problem Type 2 diabetes E11.65 Active [id number] mellitus with hyperglycemia, unspecified whether [facility] insulin use Problem Diabetic E13.42 Active 24721445 polyneuropathy associated with other specified diabetes mellitus Problem Allergic J30.9 Active 44460686 rhinitis, unspecified seasonality, unspecified trigger Problem Controlled type 2 E11.9 Active 107201739 diabetes mellitus without complication, 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 Problem Benign essential I10 Active 6020965 hypertension ALLERGIES No Known Allergies ENCOUNTERS from 1970 to 2020-04-21 Encounter Location Date Provider Diagnosis Taneshat Stephens [address] [place], Vish Florian Type [address] [place], mellitus w [facility] [place] [address] hyperglycemia, unspecified whe ther termite exterminator insul in use E11.65 ; Benign essential hyper tension I10 ; Mixed hyperlipidemia E78.2 ; Diabetic polyne uropathy associated with other specified diabe debra mellitus E13.42 ; Proteinuria, unspecified typ e R80.9 ; Allergic rhin itis, unspecified seasonality, unspecified tri gger J30.9 ; History of noncompliance w [facility] treatme nt Z91.19 ; COVID- 19 U07.1 and Upper respi ratory tract infection , unspecified typ e J06.9 IMMUNIZATIONS No Information SOCIAL HISTORY Tobacco Use: [...] No Information VITAL SIGNS Height 60 in Apr, Weight 274 lbs Apr, Temperature 98.7 degrees Fahrenheit Apr, BMI 53.51 kg/m2 Apr, Blood pressure systolic 130 mm Hg Apr, Blood pressure diastolic 88 mm Hg Apr, MEDICATIONS Medication SIG (Take, Route, Notes Start Date End Date Status Frequency, Duration) Aspirin Adult Low 1 tablet Orally Once a Active Strength 81 MG day Gabapentin 300 MG 1 capsule Orally Three Active times a day for 30 days Pioglitazone HCl 15 MG TAKE 1 TABLET BY MOUTH Active ONCE DAILY Oral Glimepiride 4 MG 1 tablet with breakfast Active or the first main meal of the day Orally twice a day for 90 days Lisinopril 40 MG 1 tablet Orally Once a Active day for 90 days Pen Kyle 32G X 4 MM as directed with Victoza May, Not-Taking daily for 90 days Gabapentin 300 MG 1 capsule Orally Three Active times a day for 30 Lipitor 20 MG 1 tablet Orally Once a Active day for 90 days NovoLIN 70/30 ReliOn INJECT 25 UNITS Active (70-30) 100 UNIT/ML SUBCUTANEOUSLY TWICE DAILY Subcutaneous PROCEDURES No Information RESULTS No Results REASON FOR VISIT 3 mth lab f/u COVID (+) MEDICAL (GENERAL) HISTORY Type Description Date Medical History Systolic congestive heart failure, unspe cified HF chronicity Medical History Allergic rhinitis, unspecified seasonali ty, unspecified trigger Medical History Controlled type 2 diabetes mellitus with out complication, unspecified [facility] insulin use status Medical History Diabetic polyneuropathy associated with other specified diabetes mellitus Medical History Benign essential hypertension Medical History Mixed hyperlipidemia Surgical History No Surgical history information Goals Section No Information Health Concerns No Information MEDICAL EQUIPMENT No Information MENTAL STATUS No Information FUNCTIONAL STATUS No Information ASSESSMENTS Encounter Date Diagnosis Assessment Notes Treatment Notes Treatm ent Clinical Notes Apr, Type 2 diabetes MANAGED BY [facility]. mellitus with Unable to tolerate hyperglycemia, Metformin. Only on unspecified whether glimepiride. [facility] insulin Insurance not use (ICD-10 - covering Victoza, E11.65) Januvia or Bydureon Bcize. Side effect discussed. Education given. Samples given. [...] may need to be adjusted and/or added. Apr, Benign essential Instructed to hypertension (ICD-10 measrue BP and bring - I10) in logs. Education given. , DASH Diet [...] go to the ER immediately to address. Apr, Mixed hyperlipidemia Resume Lipitor. (ICD-10 - E78.2) Education given. , Hyperlipidemia Education: Hyperlipidemia refers [...] you have questions, talk to your doctor. Apr, Diabetic . Refill given. polyneuropathy Stable with associated with gabapentin. other specified Education given diabetes mellitus (ICD-10 - E13.42) Apr, Proteinuria, On Lisinopril. unspecified type Education given. (ICD-10 - R80.9) Apr, Allergic rhinitis, unspecified seasonality, unspecified trigger (ICD-10 - J30.9) Apr, History of . Strongly noncompliance with encouraged and medical treatment educated patient on (ICD-10 - Z91.19) the importance of compliance with medication and appointments Apr, COVID-19 (ICD-10 - Instructed patient U07.1) on vitamin supplementation including but not limited to vitamin B, vitamin C, vitamin D along with zinc, Pepcid and Zyrtec. Okay to use [id number] analgesic as needed and use as directed. Encourage to monitor pulse and oxygen, obtained from store. Monitor vitals closely. Advised on signs and symptoms to monitor when to contact clinic and/or visit the nearest ED. Patient vocalized understanding. Apr, Upper respiratory Discussed supportive tract infection, measures and home unspecified type remedies for (ICD-10 - J06.9) symptomatic relief. Increase hydration. Advised on signs/symptoms to monitor. OK to use OTC Tylenol and/or NSAIDs for pain and fever, temporarily. It is important to rest and take your medication as recommended by the doctor. You should clean your hands frequently. You should remain indoors and cover your mouth when coughing. If necessary you may have to wear a mask to keep from infecting others. You should also change your toothbrush within 24 hours of starting any antibiotics. Salt water gargles three times a day is recommended for pharyngeal irritation and congestion. Nasal saline sprays three times a day to the nostrils may help with the nasal congestion. You may also take Mucinex OTC for chest congestion. If the symptoms persists or worsen after 24-48 hours especially if taking medication, then you are to call back for reevaluation or go to the ER. Apr, Other -- Medication reviewed and updated. -- Dietary and Lifestyle modifications addressed regarding diet, exercise and weight managemen t. -- Treatment options, risks and benefits, side effects reviewed in detail. -- Advised on signs/symptoms to monitor and when to call clinic and/or visit the nearest ER. Patient verbalized understanding and agreeable with plan. PLAN OF TREATMENT Medication Medication Name Sig Start Date Stop Date Glimepiride 4 MG 1 tablet with breakfast or the first main meal of the day Orally twice a day for 90 days Lipitor 20 MG 1 tablet Orally Once a day for 90 days NovoLIN 70/30 ReliOn (70-30) INJECT 25 UNITS SUBCUTANEOUSLY 100 UNIT/ML TWICE DAILY Subcutaneous Pioglitazone HCl 15 MG TAKE 1 TABLET BY MOUTH ONCE DAILY Oral Gabapentin 300 MG 1 capsule Orally Three times a day for 30 days Lisinopril 40 MG 1 tablet Orally Once a day for 90 days Treatment Notes Assessment Notes Clinical Notes Type 2 diabetes mellitus with MANAGED BY [facility]. Unable to hyperglycemia, unspecified whether tolerate Metformin. 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 Insurance not covering Victoza, Januvia or Bysantos Keyze. Side effect discussed. Education given. Samples given. [...] importance of compliance with medication and appointments COVID-19 Instructed patient on vitamin supplementation including but not limited to vitamin B, vitamin C, vitamin D along with zinc, Pepcid and Zyrtec. Okay to use [id number] analgesic as needed and use as directed. Encourage to monitor pulse and oxygen, obtained from store. Monitor vitals closely. Advised on signs and symptoms to monitor when to contact clinic and/or visit the nearest ED. Patient vocalized understanding. Upper respiratory tract infection, Discussed supportive bin ures and unspecified type home remedies for symptomatic relief. Increase hydration. Advised on signs/symptoms to monitor. OK to use OTC Tylenol and/or NSAIDs for pain and fever, temporarily. It is important to rest and take your medication as recommended by the doctor. You should clean your hands frequently. You should remain indoors and cover your mouth when coughing. If necessary you may have to wear a mask to keep from infecting others. You should also change your toothbrush within 24 hours of starting any antibiotics. Salt water gargles three times a day is recommended for pharyngeal irritation and congestion. Nasal saline sprays three times a day to the nostrils may help with the nasal congestion. You may also take Mucinex OTC for chest congestion. If the symptoms persists or worsen after 24-48 hours especially if taking medication, then you are to call back for reevaluation or go to the ER. Treatment Notes Test Name Order Date Lipid Panel With LDL/HDL Ratio 2020-04-21 Microalbumin/Creat Ratio, Random Ur 2020-04-21 Hemoglobin A1c 2020-04-21 Comp. Metabolic Panel (14) (CMP) 2020-04-21 CBC With Differential/Platelet 2020-04-21 Next Appt Details 3 Months WELLNESS + Labs 1 week before Reason: Provider Name:Vish Florian, 2020-07-27 03:00:00 PM, [address], [address], [place], [address], Provider Name:Vish Florian, 2020-07-27 03:00:00 PM, [address], [place], [address], Insurance Providers Payer Name Payer Payer Insured Patient Coverage Coverage End Address Phone Name Relationship to Start Date Suleiman e Insured ALLIED [phone] Katey Dunham self 2016 B[employer]EFIT [id number] [place] [address] [employer] [id number]
[2020-04-22 11:37] LABS: Basophils % 0.3 % (0-1.3); Hematocrit 49.3 % (39.6-49.0); Lymphocytes % 13.7 % (15.3-44.8); MPV 10.6 fL (7.6-11.3)
[2020-04-22] MEDS ORDERED: ONDANSETRON 4 MG/2 ML VIAL ONE (11:40)
[2020-04-22] MEDS ORDERED: NA CHLORIDE 0.9% 1,000 ML ONE (11:41)
[2020-04-22 11:56] LABS: ALT/SGPT 23 U/L (12-78); AST/SGOT 10 U/L (15-37); Albumin 3.6 g/dL (3.4-5.0); Alkaline Phosphatase 132 U/L (45-117); BUN Blood Urea Nitrogen 12 mg/dL (7-18); Bicarbonate 26 mmol/L (21-32); Bilirubin Direct 0.2 mg/dL (0-0.2); Bilirubin Total 0.6 mg/dL (0.2-1.0); Ferritin 450.1 ng/mL (26-388); Glucose Level 293 mg/dL (74-106); Lipase 33 U/L (73-393); Potassium 4.3 mmol/L (3.5-5.1); Protein, Total 8.1 g/dL (6.4-8.2); Sodium Level 132 mmol/L (136-145); Troponin (Emerg Dept Use Only) < 0.02 ng/mL (0.0-0.045)
[2020-04-22] MEDS ORDERED: ACETAMINOPHEN 500 MG TAB ONE (13:06)
--- NOTE | 2020-04-22 13:33 | RAD REPORT ---
EXAM DESCRIPTION: RAD - Chest Single View - 04/22/2020 12:01 pm CLINICAL HISTORY: DYSPNEA COMPARISON: Portable May 2018 TECHNIQUE: AP portable chest image was obtained 04/22/2020 12:01 pm . FINDINGS: Lung volumes are low. No focal consolidation of the right lung field. There is hazy opacif ication along the lateral margin of the left hilum. This is probably artifact of the body habitus and low lung volume affects. An early left upper lobe pneumonia is possible and needs correlation with c linical presentation. Heart and vasculature are normal. No measurable pleural effusion and no pneumothorax. No acute bony abnormality seen. No acute aortic findings suspected. IMPRESSION: Questionable early left upper lobe pneumonia.
--- NOTE | 2020-04-22 13:54 | ER ---
Nurse's Notes [facility] Name: Guille Dunham Age: 50 yrs Sex: Male : 1970 Arrival Date: 04/22/2020 Time: 09:36 Bed 25 Private MD: Diagnosis: SARS-associated coronavirus as the cause of diseases classified elsewhere;Pneumonia due to SARS-associated coronavirus;Dehydration Presentation: 04/22 10:25 Chief complaint: Patient states: SOB worse when laying flat, fatigue, nausea, diarrhea ss resolved now. Feels hot, but no known fever. Coronavirus screen: Client denies travel out of the [place] in the last 14 days. congestion, cough unrelated to allergies, diarrhea, difficulty breathing, fatigue, headache, nausea, shortness of breath, loss of taste or smell, Client presents with at least one sign or symptom that may indicate coronavirus-19. Standard/surgical mask placed on the client. Client reports previous positive COVID test result. Ebola Screen: Patient denies travel to an Ebola-affected area in the 21 days before illness onset. Initial Sepsis Screen: Does the patient meet any 2 criteria? HR > 90 bpm. No. Patient's initial sepsis screen is negative. Does the patient have a suspected source of infection? Yes: Productive cough/pneumonia. Risk Assessment: Do you want to hurt yourself or someone else? Patient reports no desire to harm self or others. Onset of symptoms was April 16, 2020. 10:25 Method Of Arrival: Ambulatory ss 10:25 Acuity: JANICE 2 ss Historical: - Allergies: 10:25 NKDA; ss - PMHx: 10:25 Diabetes - IDDM; Hyperlipidemia; Hypertension; ss - PSHx: 10:25 left knee; ss - Immunization history:: Flu vaccine is not up to date. - Social history:: Smoking status: Patient denies any tobacco usage or history of. Screenin:58 Abuse screen: Denies threats or abuse. Nutritional screening: No deficits noted. ll1 Tuberculosis screening: No symptoms or risk factors identified. Fall Risk IV access (20 points). Gait- Weak (10 pts.). Total Oliva Fall Scale indicates Low Risk Score (25-44 pts). Fall prevention measures have been instituted. Side Rails Up X 2 Frequent Obs/Assesments occuring As available Patient and Family Educated on Fall Prevention Program and strategies. Assessment: 10:55 General: Appears uncomfortable, ill, Behavior is calm, cooperative, appropriate for ll1 age. Pain: Complains of pain in L chest Quality of pain is described as aching. Neuro: Level of Consciousness is awake, alert, obeys commands, Oriented to person, place, time, situation, Appropriate for age Hearing Therapist are equal bilaterally Moves all extremities. Full function Weakness Gait is steady, Speech is normal, Facial symmetry appears normal, Reports dizziness. Cardiovascular: No deficits noted. Respiratory: Reports shortness of breath cough that is Airway is patent Trachea midline Respiratory effort is even, labored, Respiratory pattern is regular, symmetrical, Onset: The symptoms/episode began/occurred 6 days, the patient has moderate shortness of breath. GI: Abdomen is flat, Bowel sounds present X 4 quads. Reports nausea. Musculoskeletal: Circulation, motion, and sensation intact. Capillary refill < 3 seconds, Reports body aches, weakness. 12:11 Reassessment: Patient appears in no apparent distress at this time. Patient and/or vg1 family updated on plan of care and expected duration. Pain level reassessed. Patient is alert, oriented x 3, equal unlabored respirations, skin warm/dry/pink. Respiratory: Reports pain with respiration Breath sounds are clear bilaterally. 13:59 Reassessment: Patient up for d/c; awaiting for Pharmacy to bring patients Rx. vg1 15:00 Reassessment: Patient appears in no apparent distress at this time. Patient and/or vg1 family updated on plan of care and expected duration. Pain level reassessed. Patient is alert, oriented x 3, equal unlabored respirations, skin warm/dry/pink. Patient denies pain at this time. Patient states feeling better. Vital Signs: 10:25 BP 129 / 106; Pulse 105; Resp 22; Temp 98.6; Pulse Ox 93% on R/A; Weight 122.47 kg; ss Height 5 ft. 10 in. (177.80 cm); Pain 7/10; 10:54 Resp 20; Pulse Ox 94% on R/A; ll1 11:22 BP 143 / 99; Pulse 101; Resp 20; Pulse Ox 93% on R/A; ll1 12:13 BP 140 / 95; Pulse 90; Resp 20; Pulse Ox 96% on R/A; vg1 13:00 BP 120 / 92; Pulse 105; Resp 18; Pulse Ox 96% on R/A; vg1 14:00 BP 145 / 71; Pulse 105; Resp 20; Pulse Ox 97% on R/A; vg1 10:25 Body Mass Index 38.74 (122.47 kg, 177.80 cm) ED Course: 09:36 Patient arrived in ED. ds1 10:25 Arm band placed on. ss 10:28 Triage completed. ss 10:48 Petyon Medellin RN is Primary Nurse. ll1 10:56 Juancho Fisher PA is PHCP. jr8 10:56 Yaya Baez MD is Attending Physician. jr8 10:58 Patient has correct armband on for positive identification. Bed in low position. Call ll1 light in reach. Side rails up X2. Pulse ox on. NIBP on. 11:15 Inserted saline lock: 22 gauge in right antecubital area, using aseptic technique. ll1 Blood collected. 11:36 Primary Nurse role handed off by Peyton Medellin RN vg1 11:36 Ana María Iniguez RN is Primary Nurse. vg1 12:02 CXR XRAY In Process Unspecified. EDMS 12:50 Urine collected: clean catch specimen, clear, nikole colored. EKG done, by ED staff, jp3 reviewed by Juancho HUNTER. 15:02 No provider procedures requiring assistance completed. vg1 15:07 IV discontinued, intact, bleeding controlled, No redness/swelling at site. Pressure vg1 dressing applied. Administered Medications: 11:39 Drug: NS 0.9% 1000 ml Route: IV; Rate: 1 bolus; Site: right antecubital; vg1 13:57 Follow up: IV Status: Completed infusion; IV Intake: 1000ml vg1 11:39 Drug: Zofran (Ondansetron) 4 mg Route: IVP; Site: right antecubital; vg1 13:57 Follow up: Response: No adverse reaction; Nausea is decreased vg1 12:51 Drug: Tylenol 1000 mg Route: PO; vg1 13:57 Follow up: Response: Pain is decreased vg1 14:46 Drug: Decadron - Dexamethasone 10 mg Route: IVP; Site: right antecubital; vg1 15:00 Follow up: Response: No adverse reaction vg1 15:00 Drug: Ivermectin 200 mcg/kg Route: PO; vg1 15:00 Follow up: Response: Medication administered at discharge. vg1 Intake: 13:57 IV: 1000ml; Total: 1000ml. vg1 Outcome: 13:54 Discharge ordered by MD. zheng 15:07 Discharged to home ambulatory. vg1 15:07 Condition: stable 15:07 Discharge instructions given to patient, Instructed on discharge instructions, follow up and referral plans. medication usage, Demonstrated understanding of instructions, follow-up care, medications, Prescriptions given X 3. 15:07 Patient left the ED. vg1 Signatures: Dispatcher [employer] [facility] ArguetaTeresa cruz ds1 Stefania Plasencia RN RN ss Juancho Fisher PA PA jr8 Wilfredo Skinner jp3 Ana María Iniguez RN RN vg1 Peyton Medellin RN RN ll1
--- NOTE | 2020-04-22 13:54 | EDPHYS ---
Physician Documentation [facility] Name: Guille Dunham Age: 50 yrs Sex: Male : 1970 Arrival Date: 04/22/2020 Time: 09:36 Bed 25 Private MD: ED Physician Yaya Baez HPI: 04/22 13:35 This 50 yrs old Male presents to ER via Ambulatory with complaints of Covid + jr8 SOB. 13:35 Patient stated that he was recently diagnosed with COVID. Has been having n/v/d for the jr8 past few days. Diarrhea has since resolved. Did vomit once this AM. Had mild pain with breathing but denies shortness of breath at this time. Did say he had some early today and yesterday with laying down. Came today for weakness and dehydration . Severity of symptoms: At their worst the symptoms were moderate in the emergency department the symptoms are unchanged. The patient has not experienced similar symptoms in the past. The patient has not recently seen a physician. Historical: - Allergies: 10:25 NKDA; ss - PMHx: 10:25 Diabetes - IDDM; Hyperlipidemia; Hypertension; ss - PSHx: 10:25 left knee; ss - Immunization history:: Flu vaccine is not up to date. - Social history:: Smoking status: Patient denies any tobacco usage or history of. ROS: 13:35 Eyes: Negative for injury, pain, redness, and discharge, ENT: Negative for injury, jr8 pain, and discharge, Neck: Negative for injury, pain, and swelling, Cardiovascular: Negative for chest pain, palpitations, and edema, Back: Negative for injury and pain, MS/Extremity: Negative for injury and deformity, Skin: Negative for injury, rash, and discoloration, Neuro: Negative for headache, weakness, numbness, tingling, and seizure. 13:35 Respiratory: Positive for pleurisy. 13:35 Abdomen/GI: Positive for nausea, vomiting, and diarrhea, Negative for abdominal pain. Exam: 13:35 Eyes: Pupils equal round and reactive to light, extra-ocular motions intact. Lids and jr8 lashes normal. Conjunctiva and sclera are non-icteric and not injected. Cornea within normal limits. Periorbital areas with no swelling, redness, or edema. ENT: Nares patent. No nasal discharge, no septal abnormalities noted. Tympanic membranes are normal and external auditory canals are clear. Oropharynx with no redness, swelling, or masses, exudates, or evidence of obstruction, uvula midline. Mucous membranes moist. Neck: Trachea midline, no thyromegaly or masses palpated, and no cervical lymphadenopathy. Supple, full range of motion without nuchal rigidity, or vertebral point tenderness. No Meningismus. Cardiovascular: Regular rate and rhythm with a normal S1 and S2. No gallops, murmurs, or rubs. Normal PMI, no JVD. No pulse deficits. Respiratory: Lungs have equal breath sounds bilaterally, clear to auscultation and percussion. No rales, rhonchi or wheezes noted. No increased work of breathing, no retractions or nasal flaring. Abdomen/GI: Soft, non-tender, with normal bowel sounds. No distension or tympany. No guarding or rebound. No evidence of tenderness throughout. Back: No spinal tenderness. No costovertebral tenderness. Full range of motion. Skin: Warm, dry with normal turgor. Normal color with no rashes, no lesions, and no evidence of cellulitis. MS/ Extremity: Pulses equal, no cyanosis. Neurovascular intact. Full, normal range of motion. Neuro: Awake and alert, GCS 15, oriented to person, place, time, and situation. Cranial nerves II-XII grossly intact. Motor strength 5/5 in all extremities. Sensory grossly intact. Cerebellar exam normal. Normal gait. 15:33 ECG was reviewed by the Attending Physician. jr8 Vital Signs: 10:25 BP 129 / 106; Pulse 105; Resp 22; Temp 98.6; Pulse Ox 93% on R/A; Weight 122.47 kg; ss Height 5 ft. 10 in. (177.80 cm); Pain 7/10; 10:54 Resp 20; Pulse Ox 94% on R/A; ll1 11:22 BP 143 / 99; Pulse 101; Resp 20; Pulse Ox 93% on R/A; ll1 12:13 BP 140 / 95; Pulse 90; Resp 20; Pulse Ox 96% on R/A; vg1 13:00 BP 120 / 92; Pulse 105; Resp 18; Pulse Ox 96% on R/A; vg1 14:00 BP 145 / 71; Pulse 105; Resp 20; Pulse Ox 97% on R/A; vg1 10:25 Body Mass Index 38.74 (122.47 kg, 177.80 cm) ss MDM: 11:12 Patient medically screened. jr8 13:45 Data reviewed: vital signs, nurses notes, lab test result(s), radiologic studies, plain jr8 films. Data interpreted: Pulse oximetry: on room air is 94 %. Interpretation: acceptable. Counseling: I had a detailed discussion with the patient and/or guardian regarding: the historical points, exam findings, and any diagnostic results supporting the discharge/admit diagnosis, lab results, radiology results, the need for outpatient follow up, a family practitioner, to return to the emergency department if symptoms worsen or persist or if there are any questions or concerns that arise at home. Response to treatment: the patient's symptoms have markedly improved after treatment, patient is well hydrated. ED course: Patient overall feeling much better. Has appetite now which he has not had in a while. I had patient do squats in exam room off oxygen to stress him to see if pulse-ox drops below acceptable level. Patient was able to maintain between 92-94%. No increased shortness of breath and could talk in full sentences. Explained to him that we will d/c at this time with close return precautions. Patient good with this and would come back if worse. Discussed with him about pulse ox at home that she could get as well . 04/22 11:00 Order name: BMP; Complete Time: :04/22 11:00 Order name: C-Reactive Protein; Complete Time: 12:04/22 11:00 Order name: CBC with Diff; Complete Time: :04/22 11:00 Order name: D-Dimer; Complete Time: 12:04/22 11:00 Order name: Ferritin; Complete Time: 12:04/22 11:00 Order name: Flu; Complete Time: 12:04/22 11:00 Order name: Lactate; Complete Time: :04/22 11:00 Order name: LFT's; Complete Time: 12:04/22 11:00 Order name: Lipase; Complete Time: 12:04/22 11:00 Order name: Procalcitonin; Complete Time: 12:04/22 11:00 Order name: PT-INR; Complete Time: 12:32 04/22 11:00 Order name: Ptt, Activated; Complete Time: 12:04/22 11:00 Order name: Troponin (emerg Dept Use Only); Complete Time: 12:04/22 14:29 Order name: Urine Dipstick--Ancillary (enter results); Complete Time: 14:46 04/22 11:00 Order name: CXR XRAY; Complete Time: 13:38 04/22 11:00 Order name: EKG; Complete Time: 11:04/22 11:00 Order name: Cardiac monitoring; Complete Time: 12:22 04/22 11:00 Order name: Droplet/Contact Precautions; Complete Time: 11:04/22 11:00 Order name: EKG - Nurse/Tech; Complete Time: 12:04/22 11:00 Order name: IV Start; Complete Time: 11:04/22 11:00 Order name: Labs collected and sent; Complete Time: 11:04/22 11:00 Order name: O2 Per Protocol; Complete Time: 11:04/22 11:00 Order name: O2 Sat Monitoring; Complete Time: 11: 04/22 11:00 Order name: Urine Dipstick-Ancillary (obtain specimen); Complete Time: 13:24 8 EC:33 Rate is 92 beats/min. Rhythm is regular, Normal Sinus Rhythm. QRS [place] is Normal. [place] jr8 interval is normal at 140 msec. QRS interval is normal at 80 msec. QT interval is normal at 366 msec. No Q waves. T waves are Normal. No ST changes noted. Clinical impression: Normal ECG. Interpreted by me. Reviewed by me. Administered Medications: 11:39 Drug: NS 0.9% 1000 ml Route: IV; Rate: 1 bolus; Site: right antecubital; vg1 13:57 Follow up: IV Status: Completed infusion; IV Intake: 1000ml vg1 11:39 Drug: Zofran (Ondansetron) 4 mg Route: IVP; Site: right antecubital; vg1 13:57 Follow up: Response: No adverse reaction; Nausea is decreased vg1 12:51 Drug: Tylenol 1000 mg Route: PO; vg1 13:57 Follow up: Response: Pain is decreased vg1 14:46 Drug: Decadron - Dexamethasone 10 mg Route: IVP; Site: right antecubital; vg1 15:00 Follow up: Response: No adverse reaction vg1 15:00 Drug: Ivermectin 200 mcg/kg Route: PO; vg1 15:00 Follow up: Response: Medication administered at discharge. vg1 Disposition: 15:24 Co-signature as Attending Physician, Yaya Baez MD I agree with the assessment and 4 plan of care. Disposition: 04/22/20 13:54 Discharged to Home. Impression: SARS-associated coronavirus as the cause of diseases classified elsewhere, Pneumonia due to SARS-associated coronavirus, Dehydration. - Condition is Stable. - Discharge Instructions: Dehydration, Adult, COVID-19. - Prescriptions for Prednisone 20 mg Oral Tablet - take 1 tablet by ORAL route 2 times per day for 10 days; 20 tablet. ivermectin 3 mg Oral tablet - take 8 tablet by ORAL route one time x1 dose on sunday04/24/20; 8 tablet. promethazine 25 mg Oral Tablet - take 1 tablet by ORAL route every 6 hours As needed; 20 tablet. - Medication Reconciliation Form, Thank You Letter, Antibiotic Education, Prescription Opioid Use form. - Follow up: Private Physician; When: 5 - 6 days; Reason: Recheck today's complaints, Continuance of care, Re-evaluation by your physician. - Problem is new. - Symptoms have improved. Signatures: Dispatcher [employer] EDIA Stefania Plasencia RN RN ss Roszak, Josh, PA PA jr8 Yaya Baez MD MD tw4 Ana María Iniguez RN RN vg1 Peyton Medellin RN RN ll1 Corrections: (The following items were deleted from the chart) 12:06 11:00 Otero ordered. jr8 jp3 13:46 13:35 Patient stated that he was recently diagnosed with COVID. Has been having n/v/d jr8 for the past few days. Diarrhea has since resolved. Did vomit once this AM. Had mild pain with breathing but denies shortness of breath at this time. Came today for weakness and dehydration . jr8 15:07 13:54 04/22/2020 13:54 Discharged to Home. Impression: SARS-associated coronavirus as vg1 the cause of diseases classified elsewhere; Pneumonia due to SARS-associated coronavirus; Dehydration. Condition is Stable. Forms are Medication Reconciliation Form, Thank You Letter, Antibiotic Education, Prescription Opioid Use. Follow up: Private Physician; When: 5 - 6 days; Reason: Recheck today's complaints, Continuance of care, Re-evaluation by your physician. Problem is new. Symptoms have improved. jr8
[2020-04-22] MEDS ORDERED: IVERMECTIN 3 MG TABLET PO ONE (14:30)
[2020-04-22] MEDS ORDERED: dexAMETHasone 10 MG/ML VIAL ONE (14:41)
[2020-04-22 14:43] LABS: Urine Blood 1+ (NEG); Urine Glucose 2+ (NEG); Urine Protein 2+ (NEG); Urine Specific Gravity 1.025 (1.005-1.030)
[2020-04-22 15:22] VITALS: TEMP 98.6
[2020-04-22 15:27] VITALS: BP 145/71; O2SAT 97
== END 2020-04-22 15:07 | disposition home or self-care (01) ==
LOC: ER 09:33
DX: U07.1 COVID-19 (principal); J12.82 Pneumonia due to coronavirus disease 2019; E86.0 Dehydration; I10 Essential (primary) hypertension
CPT/HCPCS: 96361; 85025; 80048; 36415; 85610; 85379; 80076; 83605; 85730; 81003; 84484; 82728; 83690; 84145; 86140; 87804 ×2; 71045; 96375; 96374; 99284; J1100; J7030; J2405; 93005

== ENCOUNTER 2020-10-28 10:07 | Observation (INO) | payer OTHER ==
--- OUTSIDE RECORDS SUMMARY | 2020-10-28 10:08 | XMS REPORT | Continuity of Care Document ---
:1970 Author Organization [facility] t Address [address] [place] [address] Care Team Providers Name Role Phone Unavailable Unavailable Unavailable Problems This patient has no known problems. Allergies, Adverse Reactions, Alerts This patient has no known allergies or adverse reactions. Medications Ordered Filled Start Stop Current Ordering Indication Dosage Frequency Signature Comments Components Source Medication Medication Date Date Medication? Clinician (SIG) Name Name Pen [place] Pen [place] Yes Vish as [facility] [place] [facility] Bydureon Bydureon 0 2020- No Vish as [facility] ONCE [facility] Yes Vish INJECT [address] 70/30 70/30 [place] UNITS [facility]On ReliOn SUBCUTANEO [facility] USLY TWICE l DAILY Outpati ent Clinics Procedures This patient has no known procedures. Encounters Start End Encounter Admission Attending Care Care Encounter Source Date/Time Date/Time Type Type Clinicians Facility Department ID 2020-09-29 2020-09-29 Outpatient [facility] [id number] [facility] 2020-07-27 2020-07-27 [facility] [id number] [facility] 2020-04-21 2020-04-21 Out[facility] [id number] [facility] 2020-04-20 2020-04-20 Out[facility] [id number] [facility] 2020-01-28 2020-01-28 [facility] [id number] [facility] 2019-10-28 2019-10-28 [facility] [id number] [facility] 15[facility]00 15:00:00 [facility] Medicine l Medicine Outpati ent Clinics 2019-07-29 2019-07-29 [facility] [id number] [facility] 16:00[facility]00 16:00:00 [facility] Medicine l Medicine Outpati ent Clinics 2019-07-17 2019-07-17 [facility] [id number] [facility] 14:05:00 14:05:00 [facility] Medicine l Medicine Outpati ent Clinics 2019-05-21 2019-05-21 [facility] [id number] [facility] 14[facility]39[facility]00 14:39:00 [facility] Outpat[facility] ent Clinics 2019-05-20 2019-05-20 [facility] [id number] [facility] 16:00:00 16:00:00 [facility] Outpati [facility] Clinics 2018-10-18 2018-10-18 [facility] [id number] [facility] 13:23:00 13:23:00 [facility] Medicine Outpati [facility] Clinics 2018-10-18 2018-10-18 [facility] [id number] 10:45:00 10:45:00 [facility] Outpati ent Clinics 2017-10-17 2017-10-17 [facility] [id number] [facility] 15:00:00 15:00:00 [facility] Outpat[facility] Clinics Results This patient has no known results.
[2020-10-28 11:14] LABS: Protime INR 1.01
[2020-10-28 11:15] LABS: Absolute Lymphocytes (CBC) 1.7 K/uL (0.7-4.9); Basophils % 0.5 % (0-1.3); Hematocrit 46.1 % (39.6-49.0); Lymphocytes % 19.6 % (15.3-44.8); MPV 9.5 fL (7.6-11.3); RBC Red Blood Cell Count 5.32 M/uL (4.33-5.43)
[2020-10-28] MEDS ORDERED: ASPIRIN 81 MG CHEWABLE TABLET ONE (11:23)
[2020-10-28] MEDS ORDERED: NA CHLORIDE 0.9% 1,000 ML ONE (11:23)
[2020-10-28] MEDS ORDERED: NA CHLORIDE 0.9% 500 ML ONE (11:23)
--- NOTE | 2020-10-28 11:23 | RAD REPORT ---
EXAM DESCRIPTION: Omar Single View10/28/2020 10:50 am CLINICAL HISTORY: Chest pain COMPARISON: April 2020 FINDINGS: The lungs appear clear of acute infiltrate. The heart is normal size IMPRESSION: No acute abnormalities displayed
[2020-10-28 11:30] LABS: ALT/SGPT 32 U/L (12-78); AST/SGOT 12 U/L (15-37); Albumin 3.7 g/dL (3.4-5.0); Alkaline Phosphatase 180 U/L (45-117); BUN Blood Urea Nitrogen 17 mg/dL (7-18); Bicarbonate 29 mmol/L (21-32); Bilirubin Direct 0.1 mg/dL (0-0.2); Bilirubin Total 0.4 mg/dL (0.2-1.0); Glucose Level 256 mg/dL (74-106); Lipase 44 U/L (73-393); NT PRO-BNP 7 pg/mL (<125); Potassium 4.7 mmol/L (3.5-5.1); Protein, Total 7.6 g/dL (6.4-8.2); Sodium Level 135 mmol/L (136-145); Troponin (Emerg Dept Use Only) < 0.02 ng/mL (0.0-0.045)
--- NOTE | 2020-10-28 12:46 | ER ---
Nurse's Notes [facility] Name: Guille Dunham Age: 50 yrs Sex: Male : 1970 Arrival Date: 10/28/2020 Time: 10:09 Bed 30 Private MD: Diagnosis: Chest pain, unspecified;Angina pectoris, unspecified;Essential (primary) hypertension;Type 1 diabetes mellitus with hyperglycemia;Morbid (severe) obesity due to excess calories Presentation: 10/28 10:10 Chief complaint: EMS states: pt was at his desk , started having sharp chest pains, iw denies SOB,also was having pain in left arm, has had recent stress test and was negative, hx of diabetes, htn, heart problems, EMS gave Nitro X 1 , pt had ASA at home this morning. Coronavirus screen: At this time, the client does not indicate any symptoms associated with coronavirus-19. Ebola Screen: Patient negative for fever greater than or equal to 101.5 degrees Fahrenheit, and additional compatible Ebola Virus Disease symptoms Patient denies exposure to infectious person. Patient denies travel to an Ebola-affected area in the 21 days before illness onset. No symptoms or risks identified at this time. Initial Sepsis Screen: Does the patient meet any 2 criteria? No. Patient's initial sepsis screen is negative. Does the patient have a suspected source of infection? No. Patient's initial sepsis screen is negative. Risk Assessment: Do you want to hurt yourself or someone else? Patient reports no desire to harm self or others. Onset of symptoms was October 28, 2020. 10:10 Method Of Arrival: EMS: BASF iw 10:10 Acuity: JANICE 3 iw Historical: - Allergies: 10:12 NKDA; iw - PMHx: 10:12 Diabetes - IDDM; Diabetes - NIDDM; Hyperlipidemia; Hypertension; iw - Immunization history:: Client reports having NOT received the Covid vaccine. - Family history:: not pertinent. - Social history:: Smoking status: unknown. Screenin:34 Abuse screen: Denies threats or abuse. Denies injuries from another. Nutritional iw screening: No deficits noted. Tuberculosis screening: No symptoms or risk factors identified. 10:50 Fall Risk None identified. iw Assessment: 10:34 General: Appears in no apparent distress. Behavior is calm, cooperative. Pain: iw Complains of pain in chest Pain radiates to left arm. Neuro: Level of Consciousness is awake, alert, obeys commands, Oriented to person, place, time, situation. Cardiovascular: Reports chest pain, Denies. 11:08 Reassessment: Patient is alert, oriented x 3, equal unlabored respirations, skin aa5 warm/dry/pink. Pt given warm blanket for comfort, pt notified of wait time for results. Pt currently resting in bed with eyes closed. Pt's son at bedside. . 14:08 Reassessment: Patient appears in no apparent distress at this time. Patient and/or iw family updated on plan of care and expected duration. Pain level reassessed. Patient is alert, oriented x 3, equal unlabored respirations, skin warm/dry/pink. Patient states feeling better. Patient states symptoms have improved. 19:39 Pain: Pain began. iw Vital Signs: 10:19 BP 130 / 76; Pulse 85; Resp 16; Temp 98.3; Pulse Ox 95% on R/A; Weight 128.82 kg; iw 12:24 BP 109 / 71; Pulse 74; Resp 16; Pulse Ox 98% on R/A; iw ED Course: 10:09 Patient arrived in ED. iw 10:12 Triage completed. iw 10:12 Arm band placed on. iw 10:16 Remy Valdez MD is Attending Physician. sahlee 10:34 Marina Wyatt, RN is Primary Nurse. iw 10:50 XRAY Chest (1 view) In Process Unspecified. EDMS 10:51 Patient has correct armband on for positive identification. Bed in low position. Call 5 light in reach. Side rails up X 1. Pillow given. gambling monitor on. Pulse ox on. NIBP on. 10:52 EKG done, by ED staff, reviewed by Remy Valdez MD. 5 12:44 Parmjit Ramírez is Hospitalizing Provider. ashlee 13:45 COVID-19 : Document "Date of Symptom Onset" if Symptomatic. Sent. [facility] 16:55 No provider procedures requiring assistance completed. Patient admitted, IV remains in iw place. Patient maintains SpO2 saturation greater than 95% on room air. Administered Medications: 11:07 Drug: NS 0.9% 500 ml Route: IV; Rate: bolus; Site: right antecubital; aa5 11:40 Follow up: IV Status: Completed infusion iw 11:07 Drug: NS 0.9% 1000 ml Route: IV; Rate: 125 ml/hr; Site: right antecubital; aa5 16:00 Follow up: IV Status: Completed infusion iw : CANCELLED (Physician Discretion): Aspirin Chewable Tablet 162 mg PO once aa5 11:07 Drug: Aspirin 81 mg Route: PO; aa5 12:00 Follow up: Response: No adverse reaction iw 13:53 Drug: Lopressor (metoprolol TARTRATE)) 25 mg Route: PO; iw 14:30 Follow up: Response: No adverse reaction iw 13:53 Drug: Pepcid (famotidine) 20 mg Route: IVP; Site: right antecubital; iw 14:20 Follow up: Response: No adverse reaction iw 13:53 Drug: Lovenox (enoxaparin) 1 mg/kg Route: Sub-Q; Site: right lower abdomen; iw 14:10 Follow up: Response: No adverse reaction iw Outcome: 12:45 Decision to Hospitalize by Provider. ashlee 16:55 Admitted to Med/surg family with patient, via wheelchair, Report called to JOELLEN Ross iw 16:55 Condition: good 16:55 Discharge instructions given to patient, Instructed on the need for admit. 16:56 Patient left the ED. iw Signatures: Dispatcher [employer] EDRemy Alexander MD MD cha Williams, Irene, RN JOELLEN Bambi Juares RN RN Megan Sorensen [facility] Corrections: (The following items were deleted from the chart) 13:13 10:19 BP 130 / 76; Pulse 85bpm; Resp 16bpm; Pulse Ox 95% RA; Temp 98.3F; iw iw
--- NOTE | 2020-10-28 12:46 | EDPHYS ---
Physician Documentation [facility] Name: Guille Dunham Age: 50 yrs Sex: Male : 1970 Arrival Date: 10/28/2020 Time: 10:09 Bed 30 Private MD: ED Physician Remy Valdez HPI: 10/28 12:40 This 50 yrs old Male presents to ER via EMS with complaints of Chest Pain. ashlee 12:40 The patient or guardian reports chest pain that is located primarily in the epigastric ashlee area. Onset: just prior to arrival. The pain radiates to the left arm. Associated signs and symptoms: Pertinent positives: dizziness, lightheadedness. The chest pain is described as a pressure. Duration: The patient or guardian reports a single episode, that is now resolved. Modifying factors: The symptoms are alleviated by nothing. the symptoms are aggravated by nothing. Severity of pain: At its worst the pain was mild moderate in the emergency department the pain has resolved. The patient has not experienced similar symptoms in the past. Historical: - Allergies: 10:12 NKDA; iw - PMHx: 10:12 Diabetes - IDDM; Diabetes - NIDDM; Hyperlipidemia; Hypertension; iw - Immunization history:: Client reports having NOT received the Covid vaccine. - Family history:: not pertinent. - Social history:: Smoking status: unknown. ROS: 12:40 Constitutional: Negative for fever, chills, and weight loss, Eyes: Negative for injury, ashlee pain, redness, and discharge, ENT: Negative for injury, pain, and discharge, Neck: Negative for injury, pain, and swelling, Cardiovascular: Negative for chest pain, palpitations, and edema, Respiratory: Negative for shortness of breath, cough, wheezing, and pleuritic chest pain, Abdomen/GI: Negative for abdominal pain, nausea, vomiting, diarrhea, and constipation, Back: Negative for injury and pain, : Negative for injury, bleeding, discharge, and swelling, MS/Extremity: Negative for injury and deformity, Skin: Negative for injury, rash, and discoloration, Neuro: Negative for headache, weakness, numbness, tingling, and seizure, Psych: Negative for depression, anxiety, suicide ideation, homicidal ideation, and hallucinations, Allergy/Immunology: Negative for hives, rash, and allergies, Endocrine: Negative for neck swelling, polydipsia, polyuria, polyphagia, and marked weight changes, Hematologic/Lymphatic: Negative for swollen nodes, abnormal bleeding, and unusual bruising. Exam: 12:40 Constitutional: This is a well developed, well nourished patient who is awake, alert, ashlee and in no acute distress. Head/Face: Normocephalic, atraumatic. Eyes: Pupils equal round and reactive to light, extra-ocular motions intact. Lids and lashes normal. Conjunctiva and sclera are non-icteric and not injected. Cornea within normal limits. Periorbital areas with no swelling, redness, or edema. ENT: Nares patent. No nasal discharge, no septal abnormalities noted. Tympanic membranes are normal and external auditory canals are clear. Oropharynx with no redness, swelling, or masses, exudates, or evidence of obstruction, uvula midline. Mucous membranes moist. Neck: Trachea midline, no thyromegaly or masses palpated, and no cervical lymphadenopathy. Supple, full range of motion without nuchal rigidity, or vertebral point tenderness. No Meningismus. Chest/axilla: Normal chest wall appearance and motion. Nontender with no deformity. No lesions are appreciated. Cardiovascular: Regular rate and rhythm with a normal S1 and S2. No gallops, murmurs, or rubs. Normal PMI, no JVD. No pulse deficits. Respiratory: Lungs have equal breath sounds bilaterally, clear to auscultation and percussion. No rales, rhonchi or wheezes noted. No increased work of breathing, no retractions or nasal flaring. Abdomen/GI: Soft, non-tender, with normal bowel sounds. No distension or tympany. No guarding or rebound. No evidence of tenderness throughout. Back: No spinal tenderness. No costovertebral tenderness. Full range of motion. Male : Normal genitalia with no discharge or lesions. Skin: Warm, dry with normal turgor. Normal color with no rashes, no lesions, and no evidence of cellulitis. MS/ Extremity: Pulses equal, no cyanosis. Neurovascular intact. Full, normal range of motion. Neuro: Awake and alert, GCS 15, oriented to person, place, time, and situation. Cranial nerves II-XII grossly intact. Motor strength 5/5 in all extremities. Sensory grossly intact. Cerebellar exam normal. Normal gait. Psych: Awake, alert, with orientation to person, place and time. Behavior, mood, and affect are within normal limits. Vital Signs: 10:19 BP 130 / 76; Pulse 85; Resp 16; Temp 98.3; Pulse Ox 95% on R/A; Weight 128.82 kg; iw 12:24 BP 109 / 71; Pulse 74; Resp 16; Pulse Ox 98% on R/A; iw MDM: 11:30 Patient medically screened. ashlee 12:41 Differential diagnosis: abnormal EKG, acute myocardial infarction, acute pericarditis, ashlee coronary artery disease chest wall pain, cholecystitis, Cholelithiasis esophagitis, gastroesophageal reflux disease (GERD), pancreatitis, pericarditis, pneumonia, pulmonary embolus, stable angina, unstable angina. HEART Score: History: Moderately Suspicious (1), ECG: Normal (0), Age: > 45 and < 65 years (1), Risk Factors: > or = 3 Risk factors for atherosclerotic disease (2), [Hypercholesterolemia] [Hypertension] [DM] [Active Smoker] [+ Family HX] [Obesity] Troponin: > or = 3 x Normal Limit (2). The patient was given aspirin in the Emergency Department. The patient's deep vein thrombosis risk score was calculated as follows: Total Score: 0. This patient was found to be at low risk for a deep vein thrombosis by using the Well's assessment criteria. The patient's pulmonary embolism risk score was calculated as follows: Total Score: 0-2 points. This patient was found to be at low risk for a pulmonary embolism by using the Well's assessment criteria. GONSALO Risk Score: not applicable. Data reviewed: vital signs, nurses notes, lab test result(s), EKG, radiologic studies, plain films. Data interpreted: medical assistant internal medicine: rate is 74 beats/min, rhythm is regular, Pulse oximetry: on room air is 100 %. Test interpretation: by ED physician or midlevel provider: ECG, plain radiologic studies. Counseling: I had a detailed discussion with the patient and/or guardian regarding: the historical points, exam findings, and any diagnostic results supporting the discharge/admit diagnosis, lab results, radiology results, the need for further work-up and treatment in the hospital. 10/28 10:18 Order name: Basic Metabolic Panel; Complete Time: 12:37 ashlee 10/28 10:18 Order name: CBC with Diff; Complete Time: 12:37 [facility] 10/28 10:18 Order name: LFT's; Complete Time: 12:37 [facility] 10/28 10:18 Order name: Magnesium; Complete Time: 12:37 [facility] 10/28 10:18 Order name: NT PRO-BNP; Complete Time: 12:37 [facility] 10/28 10:18 Order name: PT-INR; Complete Time: 12:37 [facility] 10/28 10:18 Order name: Troponin (emerg Dept Use Only); Complete Time: 12:37 [facility] 10/28 10:18 Order name: XRAY Chest (1 view); Complete Time: 12:37 [facility] 10/28 10:18 Order name: Lipase; Complete Time: 12:37 [facility] 10/28 12:40 Order name: COVID-19 : Document "Date of Symptom Onset" if Symptomatic. [facility] 10/28 13:48 Order name: Urine Dipstick-Ancillary; Complete Time: 15:04 [facility] 10/28 14:55 Order name: SARS-COV-2 RT PCR; Complete Time: 15:04 [facility] 10/28 16:18 Order name: Glucose, Ancillary Testing [facility] 10/28 10:18 Order name: EKG; Complete Time: 10:19 [facility] 10/28 10:18 Order name: Cardiac monitoring; Complete Time: 10:51 [facility] 10/28 10:18 Order name: EKG - Nurse/Tech; Complete Time: 10:44 10/28 10:18 Order name: IV Saline Lock; Complete Time: 10:56 [facility] 10/28 10:18 Order name: Labs collected and sent; Complete Time: 10:56 [facility] 10/28 10:18 Order name: O2 Per Protocol; Complete Time: 10:47 [facility] 10/28 10:18 Order name: O2 Sat Monitoring; Complete Time: 10:47 [facility] 10/28 10:18 Order name: Urine Dipstick-Ancillary (obtain specimen); Complete Time: 13:46 [facility] 10/28 13:54 Order name: Diet Heart Healthy; Complete Time: 13:54 iw Administered Medications: 11:07 Drug: NS 0.9% 500 ml Route: IV; Rate: bolus; Site: right antecubital; aa5 11:40 Follow up: IV Status: Completed infusion iw 11:07 Drug: NS 0.9% 1000 ml Route: IV; Rate: 125 ml/hr; Site: right antecubital; aa5 16:00 Follow up: IV Status: Completed infusion iw 11:07 CANCELLED (Physician Discretion): Aspirin Chewable Tablet 162 mg PO once aa5 11:07 Drug: Aspirin 81 mg Route: PO; aa5 12:00 Follow up: Response: No adverse reaction iw 13:53 Drug: Lopressor (metoprolol TARTRATE)) 25 mg Route: PO; iw 14:30 Follow up: Response: No adverse reaction iw 13:53 Drug: Pepcid (famotidine) 20 mg Route: IVP; Site: right antecubital; iw 14:20 Follow up: Response: No adverse reaction iw 13:53 Drug: Lovenox (enoxaparin) 1 mg/kg Route: Sub-Q; Site: right lower abdomen; iw 14:10 Follow up: Response: No adverse reaction iw Disposition Summary: 10/28/20 12:45 Hospitalization Ordered Hospitalization Status: Observation ashlee Provider: Parmjit Ramírez cha Location: Telemetry/MedSurg (observation) ashlee Condition: Stable ashlee Problem: new ashlee Symptoms: have improved ashlee Bed/Room Type: Standard ashlee Room Assignment: 214(10/28/20 15:55) dw Diagnosis - Chest pain, unspecified ashlee - Angina pectoris, unspecified ashlee - Essential (primary) hypertension ashlee - Type 1 diabetes mellitus with hyperglycemia ashlee - Morbid (severe) obesity due to excess calories ashlee Forms: - Medication Reconciliation Form ashlee - SBAR form ashlee Signatures: Dispatcher [employer] EDKeshia Montgomery RN RN dw Anderson, Corey, MD MD cha Williams, Irene, RN RN Bambi Juares RN RN aa5 Corrections: (The following items were deleted from the chart) 11:07 10:18 Aspirin Chewable Tablet 162 mg PO once ordered. ashlee aa5 11:07 11:07 Aspirin Chewable Tablet 162 mg PO once ordered. aa5 aa5 13:42 12:40 CORONAVIRUS ordered. EDSC EDMS 15:55 12:45 ashlee dw
[2020-10-28 13:48] LABS: Urine Blood Negative (Negative); Urine Glucose 3+ (Negative); Urine Protein Negative (Negative); Urine Specific Gravity 1.015 (1.005-1.030)
[2020-10-28] MEDS ORDERED: METOPROLOL TAR 25 MG TAB ONE (13:51)
[2020-10-28] MEDS ORDERED: FAMOTIDINE 20 MG/2 ML VIAL IV ONE (13:51)
[2020-10-28] MEDS ORDERED: ENOXAPARIN 60 MG/0.6 ML SQ ONE (13:52)
--- NOTE | 2020-10-28 14:29 | P.HP ---
Certification for Inpatient Patient admitted to: Observation With expected LOS: <2 Midnights Practitioner: I am a practitioner with admitting privileges, knowledge of patient current condition, hospital course, and medical plan of care. Services: Services provided to patient in accordance with Admission requirements found in Title 42 Section 412.3 of the Code of Federal Regulations Patient History Date of Service: 10/28/20 Reason for admission: Chest pain History of Present Illness: 50-year-old morbidly obese gentleman with a history of hypertension, insulin dependent diabetes mellitus and hyperlipidemia was brought to the emergency department by EMS due to sudden onset of chest pain which occurred at the workplace. Chest pain occurred at rest, described as sharp, started on the left axilla and radiated to involve his left anterior chest. This was followed by chest tightness. Symptoms associated with lightheadedness. He stated he almost fell when he tried to get up and walk. Workup in the emergency department has been unremarkable with negative troponin, EKG shows no ischemic changes. Chest x-ray unremarkable. Patient was chest pain-free during my examination in the ED. He is placed under observation for ACS rule out. Allergies No Known Allergies Allergy (Verified 02/20/12 15:58) - Past Medical/Surgical History -: DM type 2 -: Hypertension -: Hyperlipidemia -: Morbid obesity -: Knee surgery - Family History Brother -: Heart disease (History of triple bypass surgery.) Father -: Heart disease - Social History Smoking Status: Never smoker Alcohol use: No CD- Drugs: No Place of Residence: Home Review of Systems Other: Patient denies any cough or fever. She denies any abdominal pain. Except as documented, all other systems reviewed and negative. Physical Examination - Physical Exam General: Alert, In no apparent distress, Oriented x3 HEENT: PERRLA, Mucous membr. moist/pink, Sclerae nonicteric Neck: JVD not distended, No Thyromegaly Respiratory: Clear to auscultation bilaterally, Normal air movement Cardiovascular: No edema, Regular rate/rhythm, Normal S1 S2 Gastrointestinal: Normal bowel sounds, Soft and benign, Non-distended, No tend erness Musculoskeletal: No swelling, No tenderness Integumentary: No rashes, No erythema Neurological: Normal speech, Normal strength at 5/5 x4 extr, Cranial nerves 3-12 intact Lymphatics: No axilla or inguinal lymphadenopathy - Studies Laboratory Data (last 24 hrs) 10/28/20 10:50: PT 11.6, INR 1.01 10/28/20 10:50: WBC 8.50, Hgb 15.7, Hct 46.1, Plt Count 184 10/28/20 10:50: Sodium 135 L, Potassium 4.7, BUN 17, Creatinine 0.98, Glucose 256 H, Magnesium 2.0, Total Bilirubin 0.4, AST 12 L, ALT 32, Alkaline Phosphatase 180 H, Lipase 44 L Assessment and Plan - Problems (Diagnosis) (1) Chest pain Current Visit: Yes Status: Acute (2) DM type 2 (diabetes mellitus, type 2) Current Visit: Yes Status: Acute (3) Hyperlipidemia Current Visit: Yes Status: Acute (4) Hypertension Current Visit: Yes Status: Acute (5) Morbid obesity Current Visit: Yes Status: Acute - Plan Place under observation. Trend troponin Blood pressure control. Continue home antihypertensives. Insulin sliding scale and Lantus insulin for glucose management Patient with significant cardiac risk factors including diabetes, obesity, hypertension and strong family history. Nuclear stress test in a.m. pending troponin result. - Advance Directives Does patient have a Living Will: No Does patient have a Durable POA for Healthcare: No
[2020-10-28] MEDS ORDERED: NITROGLYCERIN 0.4 MG/TAB SL PRN (16:00)
[2020-10-28] MEDS ORDERED: MORPHINE 2 MG/ML SYR IV PRN (16:08)
[2020-10-28] MEDS: INSULIN -REGULAR HUMAN 50 UNIT/0.5 ML ML SQ SCH ×2 (16:30→21:39)
[2020-10-28 17:08] VITALS: BMI 40.1
[2020-10-28 18:28] LABS: HDL Cholesterol 30 mg/dL (40-60); LDL Cholesterol, Calculated 29 (<130); Troponin I < 0.02 ng/mL (0.0-0.045)
[2020-10-28] MEDS: ENOXAPARIN 40 MG/0.4 ML SQ SCH (18:29)
[2020-10-28 19:08] VITALS: O2SAT 98
[2020-10-28] MEDS: ACETAMINOPHEN 500 MG TAB PO PRN (22:15)
[2020-10-29 05:42] LABS: Absolute Lymphocytes (CBC) 1.9 K/uL (0.7-4.9); Basophils % 0.5 % (0-1.3); Hematocrit 41.4 % (39.6-49.0); Lymphocytes % 28.4 % (15.3-44.8); MPV 9.6 fL (7.6-11.3); RBC Red Blood Cell Count 4.81 M/uL (4.33-5.43)
[2020-10-29 05:49] LABS: BUN Blood Urea Nitrogen 17 mg/dL (7-18); Bicarbonate 27 mmol/L (21-32); Glucose Level 165 mg/dL (74-106); Potassium 4.1 mmol/L (3.5-5.1); Sodium Level 139 mmol/L (136-145)
[2020-10-29] MEDS: INSULIN -REGULAR HUMAN 50 UNIT/0.5 ML ML SQ SCH ×4 (07:30→20:54)
[2020-10-29] MEDS: ASPIRIN EC 81 MG TAB PO SCH ×2 (08:35→10:02)
[2020-10-29] MEDS: ENOXAPARIN 40 MG/0.4 ML SQ SCH (10:03)
[2020-10-29] MEDS ORDERED: GLUCAGON 1 MG/VIAL IM PRN (11:26)
[2020-10-29] MEDS: INSULIN 70/30 100 UNITS/ML SQ SCH ×2 (11:26→17:08)
[2020-10-29] MEDS ORDERED: D50W 25 GM/50 ML SYRINGE IV PRN (11:26)
[2020-10-29] MEDS ORDERED: PIOGLITAZONE 15 MG TAB PO SCH (11:27)
--- NOTE | 2020-10-29 13:15 | CON ---
Date of Consultation: 10/29/2020 Reason For Consultation: Chest pain. History Of Present Illness: This is a 50-year-old male with history of diabetes, hypertension, dysli pidemia. 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 He became sweaty and clammy. He called the ambulan ce. He was given nitroglycerin and shortly after that chest pain is improved significantly. Patient has been chest pain-free since he was admitted and denies having exertional chest pain prior to this . Past Medical History: As outlined above in the HPI. Medications: Refer to reconciliation sheet for detailed list. Allergies: NO KNOWN DRUG ALLERGIES. Family History: Coronary artery disease in brother side, had triple bypass surgery early in life. Social History: Does not smoke or drink. Does not use any drugs. Review of Systems: All systems reviewed and they were negative except for what mentioned in the HPI. Physical Examination: Vital Signs: Temperature is 97.4, pulse 62, breathing at 16, blood pressure 133/64, saturating 97% o n room air. General: Pleasant middle-aged male, in no apparent distress. He is obese. Head and Neck: Pupils are equal, reactive to light. Intact eye movements. No JVD. No cervical lym phadenopathy. Neck: Supple. Thyroid is not enlarged. Lungs: Clear to auscultation bilaterally. No rhonchi, rales, or crackles. No accessory muscle use. Heart: Regular rate and rhythm. No extra sounds. Abdomen: Soft, nontender. Bowel sounds positive. No organomegaly. No tenderness. No rigidity or rebound. Extremities: No edema, clubbing, cyanosis. Intact pulses. Skin: No rash. Neuro: Alert, awake, oriented x3. No focal deficits appreciated. Investigations: Troponin 3 times was checked and was negative. Creatinine 0.75. Hemoglobin is 14.3 . Assessment And Recommendation: Chest pain with multiple risk factors including diabetes, hypertensio n, dyslipidemia, and obesity. Agree with the plan for stress test, please obtain exercise nuclear st ress test and further recommendations accordingly. If stress test is normal, patient can be released and followed up as an outpatient for further cardiac care. Please place the patient on aspirin 81 m g daily. Thank you for the consult. /MATTL Voice ID: [id number] Report ID: [id number]
[2020-10-29] MEDS ORDERED: REGADENOSON 0.4 MG/5 ML SYR IV ONE (13:19)
--- NOTE | 2020-10-29 15:40 | RAD REPORT ---
EXAM DESCRIPTION: NM - Rest Stress Cardiac Imaging - 10/29/2020 3:21 pm CLINICAL HISTORY: Chest pain COMPARISON: October 2009 TECHNIQUE: The patient was administered approximately 10 mCi of Tc 99m Sestamibi prior to resting SP ECT imaging of the heart. The patient was then administered 31.1 mCi of Tc 99m Sestamibi following ex ercise or pharmacologic stress. Multiplanar SPECT images were reviewed. FINDINGS: The end diastolic volume is 109 ml, the end systolic volume is 45 ml, and the ejection fra ction is 58 %. Ejection fraction has improved since the 2009 study. Physiologic distribution of the radiopharmaceutical through the myocardium is noted. No stress induce d ischemic defect is seen to suggest stress induced ischemia. No fixed defect is seen to suggest hibe rnating myocardium or scarred myocardium. Minimal decrease in activity along the inferolateral wall is believed to be attenuation artifact of the diaphragm rather than cardiac disease. IMPRESSION: No stress induced ischemia or other suspicious findings. End-diastolic ventricular volume 109 mL with ejection fraction of 58%. Ejection fraction on the 2010 study was 46%.
[2020-10-29 16:40] VITALS: BP 162/91; TEMP 97
[2020-10-29] MEDS: lisinopriL 20 MG TAB PO SCH ×2 (16:56→16:57)
[2020-10-29] MEDS: GABAPENTIN 300 MG CAP PO SCH ×2 (16:57→20:32)
--- NOTE | 2020-10-29 19:18 | P.DS ---
Admission Date: 10/28/20 Discharge Date: 10/29/20 Disposition: ROUTINE DISCHARGE Discharge Condition: FAIR Reason for Admission: Chest pain Consultations: Cardiology - Problems (1) Chest pain Current Visit: Yes Status: Acute (2) DM type 2 (diabetes mellitus, type 2) Current Visit: Yes Status: Acute (3) Hyperlipidemia Current Visit: Yes Status: Acute (4) Hypertension Current Visit: Yes Status: Acute (5) Morbid obesity Current Visit: Yes Status: Acute Brief History of Present Illness: 50-year-old morbidly obese gentleman with a history of hypertension, insulin dependent diabetes mellitus and hyperlipidemia was brought to the emergency department by EMS due to sudden onset of chest pain which occurred at the workplace. Chest pain occurred at rest, described as sharp, started on the left axilla and radiated to involve his left anterior chest. This was followed by chest tightness. Symptoms associated with lightheadedness. He stated he almost fell when he tried to get up and walk. Workup in the emergency department was unremarkable with negative troponin, EKG shows no ischemic changes. Chest x-ray unremarkable. Patient was chest pain-free during my examination in the ED. He was placed under observation for ACS rule out. Hospital Course: Troponin trended negative. Nuclear stress test was done which showed no stress- induced ischemia. Patient was chest pain-free during the hospital stay. Patient was seen in consultation by cardiology. ACS ruled out. Patient deemed stable for discharge. He will continue his aspirin 81 mg daily. Vital Signs/Physical Exam: Temp Pulse Resp BP Pulse Ox 97 F 76 18 162/91 H 98 10/29/20 16:00 10/29/20 16:00 10/29/20 16:00 10/29/20 16:00 10/29/20 16:00 General: Alert, In no apparent distress, Oriented x3 HEENT: Mucous membr. moist/pink Neck: JVD not distended Respiratory: Clear to auscultation bilaterally, Normal air movement Cardiovascular: No edema, Regular rate/rhythm, Normal S1 S2 Gastrointestinal: Soft and benign, Non-distended Musculoskeletal: No swelling Integumentary: No rashes Neurological: Normal strength at 5/5 x4 extr Laboratory Data at Discharge: WBC 6.70 K/uL (4.3-10.9) D 10/29/20 05:06 Hgb 14.3 g/dL (13.6-17.9) 07/30/21 05:06 Hct 41.4 % (39.6-49.0) 10/29/20 05:06 Plt Count 157 K/uL (152-406) 10/29/20 05:06 PT 11.6 SECONDS (9.5-12.5) 10/28/20 10:50 INR 1.01 10/28/20 10:50 Sodium 139 mmol/L (136-145) 10/29/20 05:06 Potassium 4.1 mmol/L (3.5-5.1) 10/29/20 05:06 BUN 17 mg/dL (7-18) 10/29/20 05:06 Creatinine 0.75 mg/dL (0.55-1.3) 10/29/20 05:06 Glucose 165 mg/dL (74-106) H 10/29/20 05:06 Magnesium 2.0 mg/dL (1.8-2.4) 10/28/20 10:50 Total Bilirubin 0.4 mg/dL (0.2-1.0) 10/28/20 10:50 AST 12 U/L (15-37) L 10/28/20 10:50 ALT 32 U/L (12-78) 10/28/20 10:50 Alkaline Phosphatase 180 U/L (45-117) H 10/28/20 10:50 Troponin I < 0.02 ng/mL (0.0-0.045) 10/28/20 22:10 Triglycerides 373 mg/dL (<150) H 10/28/20 17:55 Cholesterol 134 mg/dL (<200) 10/28/20 17:55 HDL Cholesterol 30 mg/dL (40-60) L 10/28/20 17:55 Cholesterol/HDL Ratio 4.47 10/28/20 17:55 Lipase 44 U/L (73-393) L 10/28/20 10:50 Home Medications: Atorvastatin Calcium 1 tab PO DAILY 10/28/20 Gabapentin 1 tab PO TID 10/28/20 Insulin 70/30 NPH/Reg Human [Novolin 70/30*] 25 units IJ BID 10/28/20 Lisinopril [Zestril] 1 tab PO DAILY 10/28/20 Pioglitazone HCl 1 tab PO DAILY 10/28/20 Aspirin [Aspirin EC 81 MG] 1 tab PO DAILY #30 10/29/20 New Medications: Aspirin [Aspirin EC 81 MG] 1 tab PO DAILY #30 Diet: ADA Activity: Ad sinai Followup: NONE,NONE [Primary Care Provider] - Yash Thurman MD [ACTIVE - CAN ADMIT] - 1-2 Weeks
[2020-10-29] MEDS: ACETAMINOPHEN 500 MG TAB PO PRN (19:56)
[2020-10-29] MEDS ORDERED: ATORVASTATIN 20 MG TAB PO SCH (21:00)
--- NOTE | 2020-11-01 09:04 | TREADPHA ---
DX: CHEST PAIN Date of Study: 10/29/2020 Ht: 5' 10 " Wt: 280 lb 0 oz Consulting Physician: ANDREZ MEDICATIONS: ASPIRIN, LIPITOR, DEXTROSE, LISINOPRIL, LOVENOX, NOVOLIN-R HISTORY: INSULIN DEPENDENT DIABETES, HYPERTENSION, HIGH CHOLESTEROL, FAMILY HISTORY OF HEART DISEASE. PHYSICIAL EXAMINATION: RESTING B.P.: 147/91 RESTING H.R.: 68 RESTING EKG: NORMAL PROTOCOL: LEXISCAN EXERCISE TIME: 3:30 B.P. AT PEAK STRESS: 164/95 IMPRESSION: LEXISCAN STRESS TEST PERFORMED. CARDIOLITE INJECTED PER PROTOCOL. SEE NUCLEAR MEDICINE REPORT. NO SUPRAVENTRICULAR OR VENTRICULAR TACHYCARDIA NOTED. NO ARRHYTHMIAS NOTED. NO EKG CHANGES OF ISCHEMIA.
== END 2020-10-29 20:45 | disposition home or self-care (01) ==
LOC: ER 10:07 → ERHOLD 14:26 → 2ND 16:51
PROVIDERS: ADMIT Internal Medicine; ATTEND Internal Medicine
DX: R07.9 Chest pain, unspecified (principal); I10 Essential (primary) hypertension; E11.65 Type 2 diabetes mellitus with hyperglycemia; E78.5 Hyperlipidemia, unspecified; E66.01 Morbid (severe) obesity due to excess calories; Z68.41 Body mass index [BMI] 40.0-44.9, adult; Z79.4 Long term (current) use of insulin; Z82.49 Family history of ischemic heart disease and other diseases of the circulatory system; Z20.822 Contact with and (suspected) exposure to COVID-19
CPT/HCPCS: 96361; 93005; 93017; 85025 ×2; 80048 ×2; 36415; 83735; 85610; 80061; 82947 ×6; 80076; 81003; 84484 ×3; 83690; 83880; 71045; 78452; 96372; 96374; 99285; U0003; J1815; J1650 ×3; J2785; J7040; J7030; A9500; G0378 ×3

== ENCOUNTER 2021-05-23 12:32 | Emergency (ER) | payer OTHER ==
--- OUTSIDE RECORDS SUMMARY | 2021-05-23 12:35 | XMS REPORT | Continuity of Care Document ---
:1970 Author Organization [facility] t Address [address] [place] [address] Care Team Providers Name Role Phone Vish Florian Attending Clinician Unavailable Problems This patient has no known problems. Allergies, Adverse Reactions, Alerts This patient has no known allergies or adverse reactions. Medications Ordered Filled Start Stop Current Ordering Indication Dosage Frequency Signature Comments Components Source Medication Medication Date Date Medication? Clinician (SIG) Name Name Pen Anton Pen Anton 0 Yes Vish as [facility] Florian [...] ONCE [facility] Vish INJECT [address] 70/30 70/30 Florian [facility] USLY TWICE l DAILY Outpati ent Clinics Procedures This patient has no known procedures. Encounters Start End Encounter Admission Attending Care Care Encounter Source Date/Time Date/Time Type Type Clinicians Facility Department ID 2021-04-27 Outpatient Florian, [facility]15 Vish [id number] [facility] 2021-04-27 Outpatient Florian, [facility] 12:22:19 Vish [id number] [facility] 2021-04-27 Outpatient Florian, [facility] 11[facility]59:06 Vish [id number] [facility] 2021-04-27 Outpatient Florian, [facility] 11:57:33 Vish [id number] [facility] 2021-04-27 Outpatient Florian, [facility] 11:19:32 Vish [id number] [facility] 2021-04-27 Outpatient Florian, [facility] 11:18:34 Vish [id number] [facility] 2021-04-27 Outpatient Florian, [facility] 11:08:06 Vish [id number] [facility] 2021-04-20 2021-04-20 ambulatory [facility] [id number] [facility] 2021-02-22 2021-02-22 ambulatory [facility] [id number] [facility] 2021-01-20 2021-01-20 [facility] [id number] [facility] 2020-11-04 2020-11-04 Out[facility] [id number] [facility] 2020-11-01 2020-11-01 Outpatient [facility] [id number] [facility] 2020-09-29 2020-09-29 Out[facility] [id number] [facility] 2020-07-27 2020-07-27 Outpatient [facility] [id number] [facility] 2020-04-21 2020-04-21 Outpatient [facility] [id number] [facility] 2020-04-20 2020-04-20 Outpatient [facility] [id number] [facility] 2020-01-28 2020-01-28 Outpatient [facility] [id number] [facility] 2019-10-28 2019-10-28 [facility] [id number] [facility] 15:00:00 15:00:00 t YR[address]MRKT s - Drive [facility] l Medicine Outpati ent Clinics 2019-07-29 2019-07-29 [facility] [id number] 16:00:00 16:00:00 t YR.MRKT s - [employer] [facility] l Medicine Outpati ent Clinics 2019-07-17 2019-07-17 [facility] [id number] 14:05:00 14:05:00 t [employer] [facility] Medicine Outpati ent Clinics 2019-05-21 2019-05-21 [facility] [id number] 14:39:00 14:39:00 t [employer] [facility] Medicine Outpati ent Clinics 2019-05-20 2019-05-20 [facility] [id number] [facility] 16:00:00 16:00:00 [employer] [facility] Medicine Outpati ent Clinics 2018-10-18 2018-10-18 [facility] [id number] 13:23:00 13:23:00 t [employer] [facility] Medicine Outpati ent Clinics 2018-10-18 2018-10-18 [facility] [id number] [facility] 10:45:00 10:45:00 [employer] [facility] Medicine Outpati ent Clinics 2017-10-17 2017-10-17 [facility] [id number] [facility] 15:00:00 15:00:00 t [employer] [facility] Medicine Outpati ent Clinics Results This patient has no known results.
[2021-05-23] MEDS ORDERED: FAMOTIDINE 20 MG/2 ML VIAL IV ONE (14:10)
[2021-05-23] MEDS ORDERED: NA CHLORIDE 0.9% 1,000 ML ONE (14:10)
[2021-05-23 14:13] LABS: Protime INR 1.01
[2021-05-23 14:14] LABS: Absolute Lymphocytes (CBC) 1.8 K/uL (0.7-4.9); Hematocrit 42.3 % (39.6-49.0); Lymphocytes % 22.3 % (15.3-44.8); MPV 9.5 fL (7.6-11.3); RBC Red Blood Cell Count 4.93 M/uL (4.33-5.43)
[2021-05-23 14:30] LABS: ALT/SGPT 27 U/L (12-78); AST/SGOT 7 U/L (15-37); Albumin 3.4 g/dL (3.4-5.0); Alkaline Phosphatase 192 U/L (45-117); BUN Blood Urea Nitrogen 14 mg/dL (7-18); Bicarbonate 29 mmol/L (21-32); Bilirubin Direct < 0.1 mg/dL (0-0.2); Bilirubin Total 0.3 mg/dL (0.2-1.0); Glucose Level 320 mg/dL (74-106); Lipase 43 U/L (73-393); Magnesium 1.9 mg/dL (1.8-2.4); NT PRO-BNP 66 pg/mL (<125); Potassium 4.1 mmol/L (3.5-5.1); Sodium Level 137 mmol/L (136-145)
[2021-05-23 14:37] LABS: Urine Blood Trace-lysed (Negative); Urine Glucose 3+ (Negative); Urine Protein Negative (Negative); Urine Specific Gravity 1.015 (1.005-1.030)
[2021-05-23 15:10] LABS: SARS-COV-2 RT PCR NEGATIVE (NEGATIVE)
--- NOTE | 2021-05-23 15:18 | RAD REPORT ---
EXAM DESCRIPTION: CT - Chest For Pe Angio - 05/23/2021 2:57 pm CLINICAL HISTORY: Cough/hemoptysis COMPARISON: None. TECHNIQUE: Dynamically enhanced axial 3 mm thick images of the chest were obtained during administra tion of <100> mL Isovue 370 IV contrast. The opacification of the pulmonary arteries was poor. An add itional 70 cc Isovue 370 was administered intravenously. Again the opacification the pulmonary arteri es was poor. Coronal and oblique reconstruction images were generated and reviewed. Exam utilizes a p rotocol for optimal evaluation of pulmonary arterial tree. Maximum intensity projections 3D imaging was utilized All CT scans are performed using dose optimization technique as appropriate and may include automated exposure control or mA/KV adjustment according to patient size. FINDINGS: Very suboptimal opacification of the pulmonary arteries. No gross central pulmonary embolu s seen. A thoracic aortic aneurysm is not noted. A pleural effusion is not seen. A pericardial effusion is not seen. There are few small vague ground-glass opacities within the lungs. A few additional areas of scarring or subsegmental atelectasis are present bilaterally. IMPRESSION: Very suboptimal evaluation pulmonary arteries. No gross central pulmonary embolus seen A few small vague ground-glass opacities within the lungs may represent mild pneumonitis or infection .
--- NOTE | 2021-05-23 15:42 | EDPHYS ---
Physician Documentation [facility] Name: Guille Dunham Age: 51 yrs Sex: Male : 1970 Arrival Date: 05/23/2021 Time: 12:34 Bed 26 Private MD: ED Physician Remy Valdez HPI: 05/23 13:39 This 51 yrs old Male presents to ER via Ambulatory with complaints of Spitting ashlee up Blood. 13:39 The patient has shortness of breath at rest. Onset: The symptoms/episode began/occurred ashlee just prior to arrival. Duration: The symptoms are intermittent, with episodes lasting 5 second(s) at a time. The patient's shortness of breath has no apparent modifying factors. Associated signs and symptoms: The patient has no apparent associated signs or symptoms. Severity of symptoms: At their worst the symptoms were mild in the emergency department the symptoms are unchanged. The patient or guardian reports cough, that is intermittent. Severity of symptoms: At their worst the symptoms were mild, in the emergency department the symptoms have improved, moderately. Modifying factors: The symptoms are alleviated by nothing, the symptoms are aggravated by nothing. Associated signs and symptoms: The patient has no apparent associated signs or symptoms. Historical: - Allergies: 13:10 NKDA; ph - Home Meds: 15:42 atorvastatin Oral [Active]; gabapentin Oral [Active]; Glimepiride Oral [Active]; eo2 insulin [Active]; lisinopril 20 mg Oral tab 1 tab once daily [Active]; lisinopril Oral [Active]; victoza [Active]; - PMHx: 13:10 Diabetes - IDDM; Diabetes - NIDDM; Hyperlipidemia; Hypertension; ph - Immunization history:: Client reports having NOT received the Covid vaccine. - Social history:: Smoking status: Patient denies any tobacco usage or history of. - Family history:: not pertinent. ROS: 13:39 Constitutional: Negative for fever, chills, and weight loss, Eyes: Negative for injury, ashlee pain, redness, and discharge, ENT: Negative for injury, pain, and discharge, Neck: Negative for injury, pain, and swelling, Cardiovascular: Negative for chest pain, palpitations, and edema, Abdomen/GI: Negative for abdominal pain, nausea, vomiting, diarrhea, and constipation, Back: Negative for injury and pain, : Negative for injury, bleeding, discharge, and swelling, MS/Extremity: Negative for injury and deformity, Skin: Negative for injury, rash, and discoloration, Neuro: Negative for headache, weakness, numbness, tingling, and seizure, Psych: Negative for depression, anxiety, suicide ideation, homicidal ideation, and hallucinations, Allergy/Immunology: Negative for hives, rash, and allergies, Endocrine: Negative for neck swelling, polydipsia, polyuria, polyphagia, and marked weight changes, Hematologic/Lymphatic: Negative for swollen nodes, abnormal bleeding, and unusual bruising. 13:39 Respiratory: Positive for cough, with no reported sputum. 13:39 Respiratory: Positive for hemoptysis. Exam: 13:39 Constitutional: This is a well developed, well nourished patient who is awake, alert, ashlee and in no acute distress. Head/Face: Normocephalic, atraumatic. Eyes: Pupils equal round and reactive to light, extra-ocular motions intact. Lids and lashes normal. Conjunctiva and sclera are non-icteric and not injected. Cornea within normal limits. Periorbital areas with no swelling, redness, or edema. ENT: Nares patent. No nasal discharge, no septal abnormalities noted. Tympanic membranes are normal and external auditory canals are clear. Oropharynx with no redness, swelling, or masses, exudates, or evidence of obstruction, uvula midline. Mucous membranes moist. Neck: Trachea midline, no thyromegaly or masses palpated, and no cervical lymphadenopathy. Supple, full range of motion without nuchal rigidity, or vertebral point tenderness. No Meningismus. Chest/axilla: Normal chest wall appearance and motion. Nontender with no deformity. No lesions are appreciated. Cardiovascular: Regular rate and rhythm with a normal S1 and S2. No gallops, murmurs, or rubs. Normal PMI, no JVD. No pulse deficits. Respiratory: Lungs have equal breath sounds bilaterally, clear to auscultation and percussion. No rales, rhonchi or wheezes noted. No increased work of breathing, no retractions or nasal flaring. Abdomen/GI: Soft, non-tender, with normal bowel sounds. No distension or tympany. No guarding or rebound. No evidence of tenderness throughout. Back: No spinal tenderness. No costovertebral tenderness. Full range of motion. Male : Normal genitalia with no discharge or lesions. Skin: Warm, dry with normal turgor. Normal color with no rashes, no lesions, and no evidence of cellulitis. MS/ Extremity: Pulses equal, no cyanosis. Neurovascular intact. Full, normal range of motion. Neuro: Awake and alert, GCS 15, oriented to person, place, time, and situation. Cranial nerves II-XII grossly intact. Motor strength 5/5 in all extremities. Sensory grossly intact. Cerebellar exam normal. Normal gait. Psych: Awake, alert, with orientation to person, place and time. Behavior, mood, and affect are within normal limits. 13:39 Musculoskeletal/extremity: Extremities: all appear grossly normal, with no appreciated pain with palpation, ROM: intact in all extremities, full active range of motion, full passive range of motion, in all extremities, Circulation is intact in all extremities. Sensation intact. Compartment Syndrome exam of affected extremity: is normal. no pain, no numbness, no tingling, no sensation deficit, no palor, no weak pulses, DVT Exam: No signs of deep vein thrombosis. no pain, no swelling, no tenderness, negative Homans' sign noted on exam, no appreciated bluish discoloration, no erythema, no increased warmth. 14:32 ECG was reviewed by the Attending Physician. [facility] Vital Signs: 13:05 BP 165 / 100; Pulse 82; Resp 18; Temp 98.4; Pulse Ox 96% on R/A; Weight 126.1 kg; ph Height 5 ft. 10 in. (177.80 cm); 14:00 BP 138 / 82; Pulse 80; Resp 15; Pulse Ox 96% ; Pain 0/10; eo2 15:00 BP 151 / 87; Pulse 75; Resp 15; Pulse Ox 98% ; Pain 0/10; eo2 16:00 BP 152 / 87; Pulse 76; Resp 17; Pulse Ox 98% ; Pain 0/10; eo2 17:00 BP 155 / 101; Pulse 75; Resp 19; Pulse Ox 97% ; vg1 17:54 BP 151 / 96; Pulse 78; Resp 18; Pulse Ox 100% ; vg1 13:05 Body Mass Index 39.89 (126.10 kg, 177.80 cm) ph MDM: 13:11 Patient medically screened. [facility] 13:43 Differential diagnosis: Bronchitis CHF exacerbation, Myocardial Infarction pneumonia, ashlee pulmonary edema, Pulmonary Embolism reactive airway disease, Unstable Angina. Antibiotic administration: The patient is discharged and will get outpatient antibiotics, Zithromax. The patient's Wells Deep Vein Thrombosis Score was calculated as follows: Hemoptysis (1.0 Pts) Total Score: 0-2 Pts- Low Risk. Differential Diagnosis: Bronchitis Influenza Upper Respiratory Infection Sinusitis Pharyngitis Viral Syndrome Pneumonia Tracheal Injury. The patient's pulmonary embolism risk score was calculated as follows: hemoptysis (1.0 Pts). Immunization status:. Data reviewed: vital signs, nurses notes, lab test result(s), EKG, radiologic studies, CT scan, plain films. Data interpreted: cafeteria monitor: rate is 82 beats/min, rhythm is regular, Pulse oximetry: on room air is 96 %. Test interpretation: by ED physician or midlevel provider: ECG, plain radiologic studies. Counseling: I had a detailed discussion with the patient and/or guardian regarding: the historical points, exam findings, and any diagnostic results supporting the discharge/admit diagnosis, lab results, radiology results. 05/23 13:25 Order name: Basic Metabolic Panel; Complete Time: 14:35 [facility] 05/23 13:25 Order name: CBC with Diff; Complete Time: 14:35 [facility] 05/23 13:25 Order name: LFT's; Complete Time: 14:35 [facility] 05/23 13:25 Order name: Magnesium; Complete Time: 14:35 [facility] 05/23 13:25 Order name: NT PRO-BNP; Complete Time: 14:35 [facility] 05/23 13:25 Order name: PT-INR; Complete Time: 14:35 [facility] 05/23 13:25 Order name: Troponin HS; Complete Time: 14:35 [facility] 05/23 13:25 Order name: XRAY Chest (1 view); Complete Time: 17:40 [facility] 05/23 13:25 Order name: Lipase; Complete Time: 14:35 [facility] 05/23 13:25 Order name: COVID-19/FLU A+B (Document "Date of Onset" if Symptomatic); Complete Time: ashlee 15:39 05/23 13:25 Order name: CT Chest For PE Angio; Complete Time: 15:39 [facility] 05/23 14:37 Order name: Urine Dipstick-Ancillary; Complete Time: 14:38 EDMS 05/23 16:49 Order name: Glucose, Ancillary Testing; Complete Time: 17:40 [facility] 05/23 13:25 Order name: EKG; Complete Time: 13:26 [facility] 05/23 13:25 Order name: Cardiac monitoring; Complete Time: 14:37 [facility] 05/23 13:25 Order name: EKG - Nurse/Tech; Complete Time: 14:37 [facility] 05/23 13:25 Order name: IV Saline Lock; Complete Time: 13:52 [facility] 05/23 13:25 Order name: Labs collected and sent; Complete Time: 13:51 [facility] 05/23 13:25 Order name: O2 Per Protocol; Complete Time: 13:51 [facility] 05/23 13:25 Order name: O2 Sat Monitoring; Complete Time: 13:51 [facility] 05/23 16:31 Order name: Glucose Level; Complete Time: 16:38 eo2 EC:32 Rate is 72 beats/min. Rhythm is regular. QRS [place] is Normal. OK interval is normal. QRS ashlee interval is normal. QT interval is normal. No Q waves. T waves are Normal. No ST changes noted. Clinical impression: Normal ECG and No evidence of ischemia. Interpreted by me. Reviewed by me. Administered Medications: 14:13 Drug: NS 0.9% 500 ml Route: IV; Rate: bolus; Site: right antecubital; eo2 15:00 Follow up: Response: No adverse reaction; IV Status: Completed infusion; IV Intake: eo2 500ml 14:15 Drug: Pepcid (famotidine) 20 mg Route: IVP; Site: right antecubital; eo2 15:00 Follow up: Response: No adverse reaction eo2 15:00 Drug: NS 0.9% 1000 ml Route: IV; Rate: 125 ml/hr; Site: right antecubital; eo2 17:45 Follow up: Response: No adverse reaction; IV Status: Completed infusion; IV Intake: eo2 300ml 15:46 CANCELLED (Physician Discretion): NS 0.9% 1000 ml IV at 1 bolus Per protocol; 1000 mL eo2 bolus 17:16 Not Given (Physician Discretion): Insulin Regular Human 7 units IVP once eo2 17:16 Drug: Zithromax (azithromycin) 500 mg Route: PO; eo2 17:45 Follow up: Response: No adverse reaction eo2 17:17 Drug: Rocephin (cefTRIAXone) 1 grams Route: IV; Rate: per protocol; Site: right eo2 antecubital; 17:45 Follow up: Response: No adverse reaction eo2 17:40 Drug: Mucomyst - Acetylcysteine 600 mg Route: PO; eo2 17:45 Follow up: Response: No adverse reaction eo2 Disposition Summary: 05/23/21 15:42 Discharge Ordered Location: Home ashlee Problem: new ashlee Symptoms: have improved ashlee Condition: Stable ashlee Diagnosis - Hemoptysis ashlee - Type 1 diabetes mellitus with hyperglycemia ashlee - Essential (primary) hypertension ashlee - Acute upper respiratory infection, unspecified ashlee Followup: ashlee - With: Private Physician - When: 2 - 3 days - Reason: Recheck today's complaints, Continuance of care, Re-evaluation by your physician Followup: ashlee - With: - When: 2 - 3 days - Reason: Recheck today's complaints, Re-evaluation by your physician Discharge Instructions: - Discharge Summary Sheet ashlee - Hemoptysis ashlee - Hypertension, Adult ashlee - Hypertension, Adult, [id number] ashlee - Blood Glucose Monitoring, Adult ashlee - Upper Respiratory Infection, Adult ashlee - Diabetes Mellitus and Nutrition, Adult ashlee - Cough, Adult, [id number] ashlee - How to Take Your Blood Pressure, [id number] ashlee - Cough, Adult ashlee - Managing Your Hypertension [facility] Forms: - Medication Reconciliation Form ashlee - Thank You Letter ashlee - Antibiotic Education ashlee - Prescription Opioid Use [facility] - Work release form vg1 Prescriptions: - Pepcid 20 mg Oral Tablet - take 1 tablet by ORAL route every 12 hours for 30 days; 60 tablet; Refills: 0, [facility] Product Selection Permitted - Zithromax 500 mg Oral Tablet - take 1 tablet by ORAL route once daily for 5 days; 5 tablet; Refills: 0, [facility] Product Selection Permitted Signatures: Dispatcher [employer] Remy Tabor MD MD cha Hall, Patricia RN RN ph Bettie Crump RN RN eo2 Corrections: (The following items were deleted from the chart) 15:46 13:25 NS 0.9% 1000 ml IV at 1 bolus Per protocol; 1000 mL bolus ordered. ashlee eo2 15:46 15:46 NS 0.9% 1000 ml IV at 1 bolus Per protocol; 1000 mL bolus ordered. eo2 eo2
--- NOTE | 2021-05-23 15:42 | ER ---
Nurse's Notes [facility] Name: Guille Dunham Age: 51 yrs Sex: Male : 1970 Arrival Date: 05/23/2021 Time: 12:34 Bed 26 Private MD: Diagnosis: Hemoptysis;Type 1 diabetes mellitus with hyperglycemia;Essential (primary) hypertension;Acute upper respiratory infection, unspecified Presentation: 05/23 13:05 Chief complaint: Patient states: " After I ate lunch today I had a weird taste in the ph back of my mouth so I spit and there was blood." Pt reports coughing up blood that started out dark in color and then became bright red. Denies chest pain, SOB, states, " I felt a little shaky when it happened and I'm a little queasy.". Coronavirus screen: Vaccine status: Patient reports being unvaccinated. Ebola Screen: No symptoms or risks identified at this time. Initial Sepsis Screen: Does the patient meet any 2 criteria? No. Patient's initial sepsis screen is negative. Does the patient have a suspected source of infection? No. Patient's initial sepsis screen is negative. Risk Assessment: Do you want to hurt yourself or someone else? Patient reports no desire to harm self or others. Onset of symptoms was May 23, 2021. 13:05 Method Of Arrival: Ambulatory ph 13:05 Acuity: JANICE 3 ph Historical: - Allergies: 13:10 NKDA; ph - Home Meds: 15:42 atorvastatin Oral [Active]; gabapentin Oral [Active]; Glimepiride Oral [Active]; eo2 insulin [Active]; lisinopril 20 mg Oral tab 1 tab once daily [Active]; lisinopril Oral [Active]; victoza [Active]; - PMHx: 13:10 Diabetes - IDDM; Diabetes - NIDDM; Hyperlipidemia; Hypertension; ph - Immunization history:: Client reports having NOT received the Covid vaccine. - Social history:: Smoking status: Patient denies any tobacco usage or history of. - Family history:: not pertinent. Screenin:00 Abuse screen: Denies threats or abuse. Denies injuries from another. Nutritional eo2 screening: No deficits noted. Tuberculosis screening: No symptoms or risk factors identified. Fall Risk None identified. Assessment: 14:10 General: Appears in no apparent distress. comfortable, Behavior is calm, cooperative. eo2 Pain: Denies pain. Neuro: Level of Consciousness is awake, alert, obeys commands, Oriented to person, place, time, situation, Denies dizziness, headache. Cardiovascular: Denies chest pain, shortness of breath, Heart tones S1 S2 Capillary refill < 3 seconds. Respiratory: Airway is patent Trachea midline Respiratory effort is even, unlabored, Breath sounds are clear bilaterally. Denies shortness of breath. Respiratory: Reports coughing up blood after eating, reports symptom has since resolved. GI: Abdomen is round Bowel sounds present X 4 quads. Patient currently denies abdominal pain. EENT:. 17:32 Reassessment: Pt with nausea after rocephin administration, coughed up minimal blood, eo2 Dr. Valdez made aware. Vital Signs: 13:05 BP 165 / 100; Pulse 82; Resp 18; Temp 98.4; Pulse Ox 96% on R/A; Weight 126.1 kg; ph Height 5 ft. 10 in. (177.80 cm); 14:00 BP 138 / 82; Pulse 80; Resp 15; Pulse Ox 96% ; Pain 0/10; eo2 15:00 BP 151 / 87; Pulse 75; Resp 15; Pulse Ox 98% ; Pain 0/10; eo2 16:00 BP 152 / 87; Pulse 76; Resp 17; Pulse Ox 98% ; Pain 0/10; eo2 17:00 BP 155 / 101; Pulse 75; Resp 19; Pulse Ox 97% ; vg1 17:54 BP 151 / 96; Pulse 78; Resp 18; Pulse Ox 100% ; vg1 13:05 Body Mass Index 39.89 (126.10 kg, 177.80 cm) ph ED Course: 12:34 Patient arrived in ED. ds1 13:10 Triage completed. ph 13:10 Arm band placed on. ph 13:11 Remy Valdez MD is Attending Physician. [facility] 13:16 Bettie Crump, JOELLEN is Primary Nurse. eo2 13:45 Inserted saline lock: 22 gauge in right antecubital area, using aseptic technique. eo2 Blood collected. 13:52 COVID-19/FLU A+B (Document "Date of Onset" if Symptomatic) Sent. eo2 13:52 Lipase Sent. eo2 13:52 Troponin HS Sent. eo2 13:52 PT-INR Sent. eo2 13:52 NT PRO-BNP Sent. eo2 13:52 Magnesium Sent. eo2 13:52 LFT's Sent. eo2 13:52 CBC with Diff Sent. eo2 13:52 Basic Metabolic Panel Sent. eo2 14:00 Patient has correct armband on for positive identification. court recording monitor on. Pulse eo2 ox on. NIBP on. Door closed. Noise minimized. Warm blanket given. 14:00 No provider procedures requiring assistance completed. eo2 14:03 XRAY Chest (1 view) In Process Unspecified. EDMS 14:46 CT Chest For PE Angio In Process Unspecified. EDMS 15:41 Mele Hernandez MD is Referral Physician. ashlee Administered Medications: 14:13 Drug: NS 0.9% 500 ml Route: IV; Rate: bolus; Site: right antecubital; eo2 15:00 Follow up: Response: No adverse reaction; IV Status: Completed infusion; IV Intake: eo2 500ml 14:15 Drug: Pepcid (famotidine) 20 mg Route: IVP; Site: right antecubital; eo2 15:00 Follow up: Response: No adverse reaction eo2 15:00 Drug: NS 0.9% 1000 ml Route: IV; Rate: 125 ml/hr; Site: right antecubital; eo2 17:45 Follow up: Response: No adverse reaction; IV Status: Completed infusion; IV Intake: eo2 300ml 15:46 CANCELLED (Physician Discretion): NS 0.9% 1000 ml IV at 1 bolus Per protocol; 1000 mL eo2 bolus 17:16 Not Given (Physician Discretion): Insulin Regular Human 7 units IVP once eo2 17:16 Drug: Zithromax (azithromycin) 500 mg Route: PO; eo2 17:45 Follow up: Response: No adverse reaction eo2 17:17 Drug: Rocephin (cefTRIAXone) 1 grams Route: IV; Rate: per protocol; Site: right eo2 antecubital; 17:45 Follow up: Response: No adverse reaction eo2 17:40 Drug: Mucomyst - Acetylcysteine 600 mg Route: PO; eo2 17:45 Follow up: Response: No adverse reaction eo2 Intake: 15:00 IV: 500ml; Total: 500ml. eo2 17:45 IV: 300ml; Total: 800ml. eo2 Outcome: 15:42 Discharge ordered by MD. rosado 17:57 Patient left the ED. vg1 Signatures: Dispatcher [employer] EDRemy Alexander MD MD cha Sanford, Demi ds1 Elke Ross, RN RN Ana María Griffith RN RN vg1 Bettie Crump RN RN eo2 Corrections: (The following items were deleted from the chart) 15:46 15:00 NS 0.9% 125 ml IV at 1 bolus in right antecubital eo2 eo2
--- NOTE | 2021-05-23 16:13 | RAD REPORT ---
EXAM DESCRIPTION: Omar Single View05/23/2021 2:03 pm CLINICAL HISTORY: cough COMPARISON: 2020 FINDINGS: The lungs grossly clear. The heart is normal size
[2021-05-23] MEDS ORDERED: CEFTRIAXONE 1000 MG/VIAL ONE (17:15)
[2021-05-23] MEDS ORDERED: AZITHROMYCIN 250 MG TAB ONE (17:15)
[2021-05-23] MEDS ORDERED: ACETYLCYST 20% 800 MG/4 ML VIAL PO ONE (18:00)
[2021-05-23 18:55] VITALS: TEMP 98.4
[2021-05-23 19:02] VITALS: BP 151/96; O2SAT 100
--- NOTE | 2021-05-24 07:24 | EKG ---
Test Date: 2021-05-23 Test Time: 14:27:43 Line Servicer: USHA MEASUREMENT RESULTS: Intervals: Rate: 72 OK: 150 QRSD: 78 QT: 404 QTc: 442 [place]: P: 55 OK: 150 QRS: 30 T: 22 INTERPRETIVE STATEMENTS: Normal sinus rhythm Low voltage QRS Borderline ECG Compared to ECG 10/28/2020 10:40:29 Low QRS voltage now present Electronically Signed On 05-24-21 07:22:39 [employer] by Yash Thurman
== END 2021-05-23 17:57 | disposition home or self-care (01) ==
LOC: ER 12:32
DX: J06.9 Acute upper respiratory infection, unspecified (principal); E10.65 Type 1 diabetes mellitus with hyperglycemia; I10 Essential (primary) hypertension; Z20.822 Contact with and (suspected) exposure to COVID-19
CPT/HCPCS: 96361; 93005; 85025; 80048; 36415; 83735; 85610; 82947; 80076; 81003; 84484; 83690; 83880; 0240U; 71275; 71045; 96375; 96374; 99284; Q9967; J7030

== ENCOUNTER 2023-10-31 02:39 | Emergency (ER) | payer OTHER ==
--- OUTSIDE RECORDS SUMMARY | 2023-10-31 02:43 | XMS REPORT | Continuity of Care Document ---
Author Name Unknown Address [address] [facility]. [address] [place] [address] [facility] thconnect Address [address] [facility] [address] [place] [address] Care Team Providers Care Sex Therapist Name Role Phone VISH FLORIAN Primary Care Physician Unavailab Vish Villanueva Attending Clinician Unavailable HÉCTOR VELASQUEZ Attending Clinician Unavailable Héctor Velasquez MD Attending Clinician [phone] Matt Drake MD Attending Clinician + CARLOS GRAY Attending Clinician Unavailable Carlos Gray MD Attending Clinician [phone] HÉCTOR VELASQUEZ Admitting Clinician Unavailable CARLOS GRAY Admitting Clinician Unavailable Payers Payer Name Policy Type Policy Number Effective Date Expiration Date Source [employer] 53 [id number] 2018 00:00:00 Common [facility] COMMERCIAL NON-CONTRACT GENERIC [id number] 2019 00:00:00 Problems Condition Name Condition Details Condition Category Status Onset Date Resolution Date Last Treatment Date Treating Clinician Comments Source Nonprolife rative diabetic retinopath y associated with type 2 diabetes mellitus Nonprolife rative diabetic retinopath y associated with type 2 diabetes mellitus Problem [facility] [id number] Long-term insulin use Problem [facility] Mixed hyperlipid emia Mixed hyperlipid emia Problem [facility] [id number] Type 2 diabetes mellitus with hyperglyce alessandra, unspecifie d whether superintendent terminal insulin use Problem [facility] Diabetic polyneurop athy Diabetic polyneurop athy associated with other specified diabetes mellitus Problem [facility] [id number] Allergic rhinitis, unspecifie d seasonalit y, unspecifie d trigger Problem [facility] Type II diabetes mellitus without complicati on Controlled type 2 diabetes mellitus without complicati on, unspecifie d superintendent terminal insulin use status Problem [facility] Benign essential hypertensi on Benign essential hypertensi on Problem [facility] [id number] Body mass index [BMI] 50.0-59.9, adult Problem [facility] [id number] Morbid (severe) obesity due to excess calories Problem [facility] Allergies, Adverse Reactions, Alerts Allergy Name Allergy Type Status Severity Reaction(s) Onset Date Inactive Date Treating Clinician Comments Source NO KNOWN ALLERGIE S Drug Class Active [facility] Social History Social Habit Start Date Stop Date Quantity Comments Source History of Tobacco Use [facility] Sexual orientation U [facility] Sex Assigned At 1970 00:00:00 1970 00:00:00 [facility] Smoking Status Start Date Stop Date Source Tobacco smoking consumption unknown [facility] Never Smoker [facility] Medications Ordered Medication Name Filled Medication Name Start Date Stop Date Current Medication? Ordering Clinician Indication Dosage Frequency Signature (SIG) Comments Components Source triamcinolo ne acetonide (KENALOG) injection 30 mg 07-03 22:45: 00 07-03 22:20 :00 No 30mg 30 mg, Infiltrati on, ONCE, 1 dose, On Sun07/03/22 at 1745, Routine [facility] lidocaine 2% (XYLOCAINE) 20 mg/mL (2 %) injection 10 mL 07-03 22:00: 00 07-03 22:20 :00 No 10mL 10 mL, Infiltrati on, ONCE, 1 dose, On Sun07/03/22 at 1700, [facility] ketorolac (TORADOL) injection 60 mg 07-03 21:45: 00 07-03 21:19 :00 No 60mg 60 mg, Intramuscu lar, ONCE NOW, 1 dose, On Sun07/03/22 at 1645, [facility] gabapentin (NEURONTIN) capsule 300 mg 07-03 21:00: 00 07-03 21:00 :00 No 300mg 300 mg, Oral, ONCE, 1 dose, On Sun07/03/22 at 1600, [facility] HYDROcodone -acetaminop hen (NORCO 5) 5-325 mg tablet 2 tablet 07-03 21:00: 00 07-03 21:19 :00 No 2{tbl} 2 tablet, Oral, ONCE, 1 dose, On Sun07/03/22 at 1600, [facility] ketorolac 10 mg tablet 07-03 00:00: 00 Yes [id number] 10mg Take 1 tablet by mouth every 6 (six) hours as needed for Pain (scale 4-6) or Pain (scale 7-10). [facility] acetaminoph en (TYLENOL ARTHRITIS PAIN) 650 mg CR tablet 07-03 00:00: 00 Yes [id number] 650mg Take 1 tablet by mouth every 8 (eight) hours as needed for Pain. [facility] gabapentin (NEURONTIN) 100 mg capsule 07-03 00:00: 00 Yes [id number] 100mg Take 1 capsule by mouth in the morning and 1 capsule at noon and 1 capsule in the evening. [facility] hydroCHLORO thiazide 12.5 MG hydroCHLORO thiazide 12.5 MG 8-17 00:00: 00 No 1{capsu le_in_t he_morn ing} QD hydroCHLOR Othiazide 12.5 MG metFORMIN HCl ER 500 MG metFORMIN HCl ER 500 MG 08-17 00:00: 00 No 1{table t_with_ evening _meal} BID metFORMIN HCl ER 500 MG Glimepiride 4 MG Glimepiride 4 MG No BID Glimepirid e 4 MG Aspirin Adult Low Strength 81 MG Aspirin Adult Low Strength 81 MG No 1{table t} QD Aspirin Adult Low Strength 81 MG NovoLIN 70/30 ReliOn (70-30) 100 UNIT/ML NovoLIN 70/30 ReliOn (70-30) 100 UNIT/ML No BID NovoLIN 70/30 ReliOn (70-30) 100 UNIT/ML Lisinopril 40 MG Lisinopril 40 MG No 1{table t} QD Lisinopril 40 MG Pioglitazon e HCl 45 MG Pioglitazon e HCl 45 MG No QD Pioglitazo ne HCl 45 MG Gabapentin 600 MG Gabapentin 600 MG No 1{capsu le} TID Gabapentin 600 MG Atorvastati n Calcium 20 MG Atorvastati n Calcium 20 MG No Atorvastat in Calcium 20 MG Beet Root Beet Root No Beet Root Lipitor 20 MG Lipitor 20 MG No 1{table t} QD Lipitor 20 MG Immunizations Ordered Immunization Name Filled Immunization Name Date Status Comments Source Adacel (Tdap) Adacel (Tdap) 2021-01-20 15:17:00 Completed [facility] Adacel (Tdap) Adacel (Tdap) 2021-01-20 15:17:00 Completed [facility] Adacel (Tdap) Adacel (Tdap) 2021-01-20 15:17:00 Completed [facility] Adacel (Tdap) Adacel (Tdap) 2021-01-20 15:17:00 Completed [facility] Adacel (Tdap) Adacel (Tdap) 2021-01-20 15:17:00 Completed [facility] Adacel (Tdap) Adacel (Tdap) 2021-01-20 15:17:00 Completed [facility] Adacel (Tdap) Adacel (Tdap) 2021-01-20 15:17:00 Completed Common [facility] Adacel (Tdap) Adacel (Tdap) 2021-01-20 15:17:00 Completed Common [facility] Adacel (Tdap) Adacel (Tdap) Unknown Completed Co mmon [facility] Adacel (Tdap) Adacel (Tdap) Unknown Completed Co mmon [facility] Adacel (Tdap) Adacel (Tdap) Unknown Completed Co mmon [facility] Adacel (Tdap) Adacel (Tdap) Unknown Completed Co mmon [facility] Adacel (Tdap) Adacel (Tdap) Unknown Completed Co mmon [facility] Adacel (Tdap) Adacel (Tdap) Unknown Completed Co on [facility] Adacel (Tdap) Adacel (Tdap) Unknown Completed Co mmon [facility] Adacel (Tdap) Adacel (Tdap) Unknown Completed Co mmon [facility] Adacel (Tdap) Adacel (Tdap) Unknown Completed Co on [facility] Vital Signs Vital Name Observation Time Observation Value Comments S ource height 2023-09-27 08:40:00 69 [in_i] Commo n [facility] weight 2023-09-27 08:40:00 293.4 [lb_av] Co mmon [facility] temperature 2023-09-27 08:40:00 97.7 [degF] Com mon [facility] bmi 2023-09-27 08:40:00 43.32 kg/m2 Comm on [facility] oximetry 2023-09-27 08:40:00 97 % Commo n [facility] blood pressure systolic 2023-09-27 08:40:00 148 mm[Hg] Common [facility] blood pressure diastolic 2023-09-27 08:40:00 78 mm[Hg] [facility] height 2023-06-26 08:00:00 69 [in_i] Commo n [facility] weight 2023-06-26 08:00:00 296 [lb_av] Comm on [facility] bmi 2023-06-26 08:00:00 43.71 kg/m2 Comm on [facility] blood pressure systolic 2023-06-26 08:00:00 127 mm[Hg] Common [facility] blood pressure diastolic 2023-06-26 08:00:00 80 mm[Hg] Common [facility] height 2023-03-28 16:00:00 69 [in_i] Commo n [facility] weight 2023-03-28 16:00:00 290 [lb_av] Comm on [facility] bmi 2023-03-28 16:00:00 42.82 kg/m2 Comm on [facility] blood pressure systolic 2023-03-28 16:00:00 135 mm[Hg] Common [facility] blood pressure diastolic 2023-03-28 16:00:00 73 mm[Hg] [facility] Systolic blood pressure 2023-01-28 16:00:00 175 mm[Hg] [facility] Diastolic blood pressure 2023-01-28 16:00:00 100 mm[Hg] [facility] Heart rate 2023-01-28 16:00:00 72 /min [facility] 2023-01-28 16:00:00 36.78 Edie [facility] Respiratory rate 2023-01-28 16:00:00 16 /min [facility] Oxygen saturation in Arterial blood by Pulse oximetry 2023-01-28 16:00:00 98 /min [facility] Body height 2023-01-28 12:49:00 175.3 cm [facility] Body weight 2023-01-28 12:49:00 134.582 kg [facility] BMI 2023-01-28 12:49:00 43.81 kg/m2 [facility] height 2022-12-20 13:00:00 69 [in_i] Commo n [facility] weight 2022-12-20 13:00:00 290 [lb_av] Comm on [facility] bmi 2022-12-20 13:00:00 42.82 kg/m2 Comm on [facility] blood pressure systolic 2022-12-20 13:00:00 132 mm[Hg] [facility] blood pressure diastolic 2022-12-20 13:00:00 70 mm[Hg] Common [facility] height 2022-09-15 11:00:00 69 [in_i] Commo n [facility] weight 2022-09-15 11:00:00 293.4 [lb_av] Co mmon [facility] temperature 2022-09-15 11:00:00 98.1 [degF] Com mon [facility] bmi 2022-09-15 11:00:00 43.32 kg/m2 Comm on [facility] oximetry 2022-09-15 11:00:00 99 % Commo n [facility] respiratory rate 2022-09-15 11:00:00 18 /min [facility] blood pressure systolic 2022-09-15 11:00:00 138 mm[Hg] [facility] blood pressure diastolic 2022-09-15 11:00:00 74 mm[Hg] [facility] Systolic blood pressure 2022-07-03 20:46:00 192 mm[Hg] Benge o [facility] Diastolic blood pressure 2022-07-03 20:46:00 98 mm[Hg] B[facility] o [facility] Heart rate 2022-07-03 20:46:00 79 /min [facility] Body temperature 2022-07-03 20:46:00 36.72 Edie [facility] Respiratory rate 2022-07-03 20:46:00 18 /min [facility] Body weight 2022-07-03 20:46:00 131.543 kg [facility] Oxygen saturation in Arterial blood by Pulse oximetry 2022-07-03 20:46:00 97 /min [facility] height 2022-05-23 11:30:00 69 [in_i] Commo n [facility] weight 2022-05-23 11:30:00 285 [lb_av] Comm on [facility] temperature 2022-05-23 11:30:00 98 [degF] Comm on [facility] bmi 2022-05-23 11:30:00 42.08 kg/m2 Comm on [facility] blood pressure systolic 2022-05-23 11:30:00 132 mm[Hg] [facility] blood pressure diastolic 2022-05-23 11:30:00 72 mm[Hg] [facility] height 2022-02-20 09:50:00 69 [in_i] Commo n [facility] weight 2022-02-20 09:50:00 281.2 [lb_av] Co mmon [facility] temperature 2022-02-20 09:50:00 97.2 [degF] Com mon [facility] bmi 2022-02-20 09:50:00 41.52 kg/m2 Comm on [facility] oximetry 2022-02-20 09:50:00 94 % Commo n [facility] respiratory rate 2022-02-20 09:50:00 16 /min [facility] blood pressure systolic 2022-02-20 09:50:00 143 mm[Hg] [facility] blood pressure diastolic 2022-02-20 09:50:00 76 mm[Hg] [facility] height 2021-11-16 16:10:00 69 [in_i] Commo n [facility] weight 2021-11-16 16:10:00 295 [lb_av] Comm on [facility] temperature 2021-11-16 16:10:00 97.6 [degF] Com mon [facility] bmi 2021-11-16 16:10:00 43.56 kg/m2 Comm on [facility] oximetry 2021-11-16 16:10:00 97 % Commo n [facility] respiratory rate 2021-11-16 16:10:00 16 /min Common [facility] blood pressure systolic 2021-11-16 16:10:00 135 mm[Hg] [facility] blood pressure diastolic 2021-11-16 16:10:00 74 mm[Hg] [facility] height 2021-09-20 08:50:00 60 [in_i] Commo n [facility] weight 2021-09-20 08:50:00 294.5 [lb_av] Co [facility] temperature 2021-09-20 08:50:00 97.9 [degF] Com [facility] bmi 2021-09-20 08:50:00 57.51 kg/m2 Comm on [facility] oximetry 2021-09-20 08:50:00 95 % Commo n [facility] respiratory rate 2021-09-20 08:50:00 16 /min Common [facility] blood pressure systolic 2021-09-20 08:50:00 137 mm[Hg] Common [facility] blood pressure diastolic 2021-09-20 08:50:00 77 mm[Hg] Common [facility] height 2021-08-17 15:50:00 60 [in_i] Commo n [facility] weight 2021-08-17 15:50:00 297.4 [lb_av] Co mmon [facility] temperature 2021-08-17 15:50:00 97.9 [degF] Com [facility] bmi 2021-08-17 15:50:00 58.08 kg/m2 Comm on [facility] oximetry 2021-08-17 15:50:00 95 % Commo n [facility] respiratory rate 2021-08-17 15:50:00 16 /min Common [facility] blood pressure systolic 2021-08-17 15:50:00 139 mm[Hg] Common [facility] blood pressure diastolic 2021-08-17 15:50:00 88 mm[Hg] [facility] height 2021-04-20 16:00:00 60 [in_i] Commo n [facility] weight 2021-04-20 16:00:00 279.6 [lb_av] Co [facility] temperature 2021-04-20 16:00:00 98.2 [degF] Com mon [facility] bmi 2021-04-20 16:00:00 54.6 kg/m2 Commo n [facility] oximetry 2021-04-20 16:00:00 96 % Commo n [facility] respiratory rate 2021-04-20 16:00:00 17 /min Common [facility] blood pressure systolic 2021-04-20 16:00:00 134 mm[Hg] [facility] blood pressure diastolic 2021-04-20 16:00:00 76 mm[Hg] Common Spiri t [facility] blood pressure diastolic 2021-02-22 16:10:00 87 mm[Hg] Common Spiri t [facility] height 2021-02-22 16:10:00 60 [in_i] Commo n [facility] weight 2021-02-22 16:10:00 288.2 [lb_av] Co [facility] temperature 2021-02-22 16:10:00 98.1 [degF] Com mon [facility] bmi 2021-02-22 16:10:00 56.28 kg/m2 Comm on [facility] oximetry 2021-02-22 16:10:00 96 % Commo n [facility] respiratory rate 2021-02-22 16:10:00 18 /min [facility] blood pressure systolic 2021-02-22 16:10:00 138 mm[Hg] [facility] height 2021-01-20 15:00:00 60 [in_i] Commo n [facility] weight 2021-01-20 15:00:00 289.8 [lb_av] Co mmon [facility] temperature 2021-01-20 15:00:00 97.5 [degF] Com mon [facility] bmi 2021-01-20 15:00:00 56.59 kg/m2 Comm on [facility] oximetry 2021-01-20 15:00:00 94 % Commo n [facility] respiratory rate 2021-01-20 15:00:00 19 /min [facility] blood pressure systolic 2021-01-20 15:00:00 142 mm[Hg] [facility] blood pressure diastolic 2021-01-20 15:00:00 78 mm[Hg] [facility] Procedures Procedure Date / Time Performed Performing Clinician Source EKG-12 LEAD 2023-01-28 15:26:06 Héctor Velasquez [facility] DUPLEX VENOUS LEG RIGHT - BY VASCULAR LAB 2023-01-28 15:17:03 Héctor Velasquez [facility] XR SHOULDER 2+ VW LEFT 2023-01-28 13:45:51 Cande Velasquez [facility] CONSENT/REFUSAL FOR DIAGNOSIS AND TREATMENT 2023-01-28 12:23:21 Doctor Unassigned, [place] [facility] MA ARTHROCENTESIS ASPIR&/INJ INTERM JT/BURS W/O US 2022-07-03 22:09:31 Carlos Gray [facility] XR SHOULDER 2+ VW LEFT 2022-07-03 21:39:00 Silvio Gray [facility] CONSENT/REFUSAL FOR DIAGNOSIS AND TREATMENT 2022-07-03 20:42:01 Doctor Unassigned, [place] [facility] NOTICE OF PRIVACY PRACTICES 2022-07-03 20:41:04 Doctor Unassigned, [place] [facility] Encounters Start Date/Time End Date/Time Encounter Type Admission Type Attending [facility] Care Facility Care Department Encounter ID Source 2023-09-25 10:43:00 [facility] [id number] [facility] 2022-09-06 08:06:00 Outpatient Florian, Vish [facility] [id number] [facility] 2022-02-17 09:35:01 Outpatient Florian, Vish [facility] [id number] [facility] 2021-12-16 14:36:01 Outpatient Florian, Vish [facility] [id number] [facility] 2021-11-21 10:37:01 Outpatient Florian, Vish [facility] [id number] [facility] 2021-10-20 14:27:00 Outpatient Florian, Vish [facility] [id number] [facility] 2021-08-26 14:19:00 Outpatient Florian, [facility] [id number] [facility] 2021-04-27 13:16:15 Outpatient Florian, Vish [facility] [id number] [facility] 2021-04-27 12:22:19 Outpatient Florian, Vish [facility] [id number] [facility] 2021-04-27 11:59:06 Outpatient Florian, [facility] [id number] [facility] 2021-04-27 11:57:33 Outpatient Florian, Vish [facility] [id number] [facility] 2021-04-27 11:19:32 Outpatient Florian, Vish [facility] [id number] [facility] 2021-04-27 11:18:34 Outpatient Florian, Vish [facility] [id number] [facility] 2021-04-27 11:08:06 Outpatient Florian, Vish [facility] [id number] [facility] 2023-09-27 00:00:00 2023-09-27 00:00:00 OFFICE VISIT ESTAB PT LEVEL 4 [facility] [id number] [facility] 2023-06-26 00:00:00 2023-06-26 00:00:00 OFFICE VISIT ESTAB PT LEVEL 4 [facility] [id number] [facility] 2023-06-20 00:00:00 2023-06-20 00:00:00 (TEL) [facility] [id number] [facility] 2023-05-14 00:00:00 2023-05-14 00:00:00 (TEL) [facility] [id number] [facility] 2023-03-28 00:00:00 2023-03-28 00:00:00 OFFICE VISIT ESTAB PT LEVEL 4 [facility] [id number] [facility] 2023-01-28 07:53:00 2023-01-28 11:02:00 Emergency X HÉCTOR VELASQUEZ [facility] ERT [id number] [facility] 2023-01-28 07:53:00 2023-01-28 11:02:00 Emergency Héctor Velasquez [facility] [id number] [facility] 2022-12-20 00:00:00 2022-12-20 00:00:00 OFFICE VISIT ESTAB PT LEVEL 4 [facility] ST[facility] [id number] [facility] 2022-11-09 00:00:00 2022-11-09 00:00:00 (TEL) [facility]C [facility] [id number] [facility] 2022-09-15 00:00:00 2022-09-15 00:00:00 OFFICE VISIT ESTAB PT LEVEL 4 [facility] [id number] [facility] 2022-07-19 00:00:00 2022-07-19 00:00:00 Telephone Matt Drake [facility] [id number] [facility] 2022-07-03 15:47:00 2022-07-03 17:43:00 Emergency X CARLOS GRAY [facility] ERT [id number] [facility] 2022-07-03 15:47:00 2022-07-03 17:43:00 Emergency Carlos Gray [facility] [id number] [facility] 2022-05-23 00:00:00 2022-05-23 00:00:00 OFFICE VISIT ESTAB PT LEVEL 3 [facility] ST[facility] [id number] [facility] 2022-02-20 00:00:00 2022-02-20 00:00:00 OFFICE VISIT EST PT LEVEL 3 [facility] [id number] [facility] 2021-11-16 00:00:00 2021-11-16 00:00:00 OFFICE VISIT ESTAB PT LEVEL 4 [facility] [id number] [facility] 2021-09-20 00:00:00 2021-09-20 00:00:00 OFFICE VISIT ESTAB PT LEVEL 4 [facility] [id number] [facility] 2021-08-17 00:00:00 2021-08-17 00:00:00 OFFICE VISIT ESTAB PT LEVEL 4 [facility] [id number] [facility] 2021-08-09 00:00:00 2021-08-09 00:00:00 (TEL) STLMLC [facility] [id number] [facility] 2021-04-20 00:00:00 2021-04-20 00:00:00 OFFICE VISIT ESTAB PT LEVEL 4 [facility] [id number] [facility] 2021-02-22 00:00:00 2021-02-22 00:00:00 OFFICE VISIT ESTAB PT LEVEL 4 [facility] [id number] [facility] 2021-01-20 00:00:00 2021-01-20 00:00:00 OFFICE VISIT ESTAB PT LEVEL 4 [facility] [id number] [facility] 2020-11-04 00:00:00 2020-11-04 00:00:00 Outpatient [facility] [id number] [facility] 2020-11-01 00:00:00 2020-11-01 00:00:00 Outpatient [facility] [id number] [facility] 2020-09-29 00:00:00 2020-09-29 00:00:00 Outpatient [facility] [id number] [facility] 2020-07-27 00:00:00 2020-07-27 00:00:00 Outpatient [facility] [id number] [facility] 2020-04-21 00:00:00 2020-04-21 00:00:00 Outpatient [facility] [id number] [facility] 2020-04-20 00:00:00 2020-04-20 00:00:00 Outpatient [facility] [id number] [facility] 2020-01-28 00:00:00 2020-01-28 00:00:00 Outpatient [facility] [id number] [facility] 2019-10-28 15:00:00 2019-10-28 15:00:[address] [facility] [place] [facility] [place] [facility] [id number] [facility] [facility] 2019-07-29 16:00:00 2019-07-29 16:00:00 [facility] [place] [facility] [id number] [facility] 2019-07-17 14:05:00 2019-07-17 14:05:00 [facility] [place] [facility] [place] [facility] [id number] [facility] 2019-05-21 14:39:00 2019-05-21 14:39:00 [facility] [place] [facility] [place] [facility] [id number] [facility] 2019-05-20 16:00:00 2019-05-20 16:00:00 [facility] [place] [facility] [place] [facility] [id number] [facility] 2018-10-18 13:23:00 2018-10-18 13:23:00 [facility] [place] [facility] [place] [facility] [id number] [facility] 2018-10-18 10:45:00 2018-10-18 10:45:00 [facility] [place] [facility] [id number] [facility] 2017-10-17 15:00:00 2017-10-17 15:00:00 [facility] [place] [facility] [place] [facility] [id number] [facility] Results Test Description Test Time Test Comments Results Result Co mments Source HEMOGLOBIN [id number] 00:00:00* Test Item Value Reference Range Interpretation Comme nts HEMOGLOBIN A1c (test code = 4548-4) 12.6 % See_Comment H [Automated messa ge] The system which generated this result transmitted reference range: 4.2-5.6 %. The reference range was not used to interpret this result as normal/abnormal. LIPID PANEL WITH REFLEX DIRECT [id number] 00:00:00* Test Item Value Reference Range Interpretation Comme nts CALC LDL CHOL (test code = 32298-5) 101 MG/DL See_Comment H [Automated messa ge] The system which generated this result transmitted reference range: <100 MG/DL. The reference range was not used to interpret this result as normal/abnormal. CHOLESTEROL (test code = 2093-3) 174 MG/DL See_Comment [Automated messa ge] The system which generated this result transmitted reference range: <200 MG/DL. The reference range was not used to interpret this result as normal/abnormal. HDL CHOLESTEROL (test code = 2085-9) 24 MG/DL See_Comment L [Automated messa ge] The system which generated this result transmitted reference range: >39 MG/DL. The reference range was not used to interpret this result as normal/abnormal. RISK RATIO LDL/HDL (test code = 93215-5) 4.21 RATIO See_Comment H [Automated message] The system which generated this result transmitted reference range: <3.55 RATIO. The reference range was not used to interpret this result as normal/abnormal. TRIGLYCERIDES (test code = 2571-8) 371 MG/DL See_Comment H [Automated messa ge] The system which generated this result transmitted reference range: <150 MG/DL. The reference range was not used to interpret this result as normal/abnormal. ALBUMIN/CREATININE RATIO, RANDOM [id number] 00:00:00* Test Item Value Reference Range Interpretation Comme nts ALBUMIN, URINE, RANDOM (test code = 39135-3) 45.5 MG/DL NOT ESTAB MG/DL CALC ALBUMIN/CREAT, RND (test code = 51631-7) 329 MG/G See_Comment H [Automated messa ge] The system which generated this result transmitted reference range: <30 MG/G. The reference range was not used to interpret this result as normal/abnormal. CREATININE, URINE, CONC. (test code = 2161-8) 138.4 MG/DL NOT ESTAB MG/DL COMPREHENSIVE METABOLIC [id number] 00:00:00* Test Item Value Reference Range Interpretation Comme nts ALBUMIN (test code = 1751-7) 3.9 G/DL See_Comment [Automated messa ge] The system which generated this result transmitted reference range: 3.5-5.2 G/DL. The reference range was not used to interpret this result as normal/abnormal. ALKALINE PHOSPHATASE (test code = 6768-6) 199 U/L See_Comment H [Automated message] The system which generated this result transmitted reference range: 40-121 U/L. The reference range was not used to interpret this result as normal/abnormal. BILIRUBIN, TOTAL (test code = 1975-2) 0.3 MG/DL See_Comment [Automated message] The system which generated this result transmitted reference range: <=1.2 MG/DL. The reference range was not used to interpret this result as normal/abnormal. BUN (test code = 3094-0) 22 MG/DL See_Comment H [Automated messa ge] The system which generated this result transmitted reference range: 6-20 MG/DL. The reference range was not used to interpret this result as normal/abnormal. CALCIUM (test code = 65369-4) 9.4 MG/DL See_Comment [Automated messa ge] The system which generated this result transmitted reference range: 8.5-10.5 MG/DL. The reference range was not used to interpret this result as normal/abnormal. CALC A/G RATIO (test code = 1759-0) 1.4 RATIO See_Comment [Automated messa ge] The system which generated this result transmitted reference range: 1.0-2.6 RATIO. The reference range was not used to interpret this result as normal/abnormal. CALC BUN/CREAT (test code = 3097-3) 17 RATIO See_Comment [Automated messa ge] The system which generated this result transmitted reference range: 6-28 RATIO. The reference range was not used to interpret this result as normal/abnormal. CALC GLOBULIN (test code = 96507-4) 2.8 G/DL See_Comment [Automated messa ge] The system which generated this result transmitted reference range: 1.9-3.7 G/DL. The reference range was not used to interpret this result as normal/abnormal. CARBON DIOXIDE (test code = 1963-8) 26 MEQ/L See_Comment [Automated messa ge] The system which generated this result transmitted reference range: 19-31 MEQ/L. The reference range was not used to interpret this result as normal/abnormal. CHLORIDE (test code = 2075-0) 98 MEQ/L See_Comment [Automated messa ge] The system which generated this result transmitted reference range: 95-107 MEQ/L. The reference range was not used to interpret this result as normal/abnormal. CREATININE (test code = 2160-0) 1.30 MG/DL See_Comment [Automated messa ge] The system which generated this result transmitted reference range: 0.80-1.40 MG/DL. The reference range was not used to interpret this result as normal/abnormal. eGFR (2020 CKD-EPI) (test code = 38114-6) 67 ML/MIN/1.73 See_Comment [Automated messa ge] The system which generated this result transmitted reference range: >60 ML/MIN/1.73. The reference range was not used to interpret this result as normal/abnormal. GLUCOSE (test code = 1558-6) 332 MG/DL See_Comment H [Automated messa ge] The system which generated this result transmitted reference range: 70-99 MG/DL. The reference range was not used to interpret this result as normal/abnormal. POTASSIUM (test code = 2823-3) 4.9 MEQ/L See_Comment [Automated messa ge] The system which generated this result transmitted reference range: 3.5-5.4 MEQ/L. The reference range was not used to interpret this result as normal/abnormal. PROTEIN, TOTAL (test code = 2885-2) 6.7 G/DL See_Comment [Automated messa ge] The system which generated this result transmitted reference range: 6.1-8.3 G/DL. The reference range was not used to interpret this result as normal/abnormal. AST (test code = 1920-8) 14 U/L See_Comment [Automated messa ge] The system which generated this result transmitted reference range: 9-50 U/L. The reference range was not used to interpret this result as normal/abnormal. ALT (test code = 1742-6) 16 U/L See_Comment [Automated messa ge] The system which generated this result transmitted reference range: 5-50 U/L. The reference range was not used to interpret this result as normal/abnormal. SODIUM (test code = 2951-2) 136 MEQ/L See_Comment [Automated messa ge] The system which generated this result transmitted reference range: 133-146 MEQ/L. The reference range was not used to interpret this result as normal/abnormal. CBC W/AUTO [id number] 00:00:00* Test Item Value Reference Range Interpretation Comme nts NUCLEATED RBCS (test code = 70138-6) 0.0 /100 WBC'S See_Comment [Automated messa ge] The system which generated this result transmitted reference range: 0.0 /100 WBC'S. The reference range was not used to interpret this result as normal/abnormal. ABSOLUTE EOSINOPHILS (test code = 01467-3) 0.25 K/UL See_Comment [Automated messa ge] The system which generated this result transmitted reference range: 0.00-0.50 K/UL. The reference range was not used to interpret this result as normal/abnormal. ABSOLUTE LYMPHOCYTES (test code = 10361-9) 1.78 K/UL See_Comment [Automated messa ge] The system which generated this result transmitted reference range: 1.00-4.00 K/UL. The reference range was not used to interpret this result as normal/abnormal. ABSOLUTE MONOCYTES (test code = 37462-6) 0.51 K/UL See_Comment [Automated messa ge] The system which generated this result transmitted reference range: 0.20-1.00 K/UL. The reference range was not used to interpret this result as normal/abnormal. ABSOLUTE NEUTROPHILS (test code = 28592-3) 4.15 K/UL See_Comment [Automated messa ge] The system which generated this result transmitted reference range: 1.50-7.50 K/UL. The reference range was not used to interpret this result as normal/abnormal. BASOPHILS (test code = 01233-5) 0.4 % EOSINOPHILS (test code = 17495-7) 3.7 % HEMATOCRIT (test code = 62103-7) 42.8 % See_Comment [Automated messa ge] The system which generated this result transmitted reference range: 40.0-51.0 %. The reference range was not used to interpret this result as normal/abnormal. HEMOGLOBIN (test code = 718-7) 14.4 G/DL See_Comment [Automated messa ge] The system which generated this result transmitted reference range: 13.5-17.0 G/DL. The reference range was not used to interpret this result as normal/abnormal. LYMPHOCYTES (test code = 81550-4) 26.3 % MCH (test code = 49607-9) 29.6 PG See_Comment [Automated messa ge] The system which generated this result transmitted reference range: 25.0-33.0 PG. The reference range was not used to interpret this result as normal/abnormal. MCHC (test code = 24881-8) 33.6 G/DL See_Comment [Automated messa ge] The system which generated this result transmitted reference range: 31.0-36.0 G/DL. The reference range was not used to interpret this result as normal/abnormal. MCV (test code = 53973-2) 87.9 fL See_Comment [Automated messa ge] The system which generated this result transmitted reference range: 80.0-99.0 fL. The reference range was not used to interpret this result as normal/abnormal. MONOCYTES (test code = 65655-3) 7.5 % NEUTROPHILS (test code = 98185-9) 61.5 % PLATELET COUNT (test code = 37068-7) 187 K/UL See_Comment [Automated messa ge] The system which generated this result transmitted reference range: 130-400 K/UL. The reference range was not used to interpret this result as normal/abnormal. RBC (test code = 18327-1) 4.87 M/UL See_Comment [Automated messa ge] The system which generated this result transmitted reference range: 4.50-6.10 M/UL. The reference range was not used to interpret this result as normal/abnormal. RDW (test code = 19197-1) 12.5 % See_Comment [Automated messa ge] The system which generated this result transmitted reference range: 11.5-15.0 %. The reference range was not used to interpret this result as normal/abnormal. WBC (test code = 25961-0) 6.8 K/UL See_Comment [Automated messa ge] The system which generated this result transmitted reference range: 3.5-11.0 K/UL. The reference range was not used to interpret this result as normal/abnormal. HEMOGLOBIN [id number] 00:00:00* Test Item Value Reference Range Interpretation Comme nts HEMOGLOBIN A1c (test code = 4548-4) 11.8 % See_Comment H [Automated messa ge] The system which generated this result transmitted reference range: 4.2-5.6 %. The reference range was not used to interpret this result as normal/abnormal. LIPID PANEL WITH REFLEX DIRECT [id number] 00:00:00* Test Item Value Reference Range Interpretation Comme nts CALC LDL CHOL (test code = 29090-8) 74 MG/DL See_Comment [Automated messa ge] The system which generated this result transmitted reference range: <100 MG/DL. The reference range was not used to interpret this result as normal/abnormal. CHOLESTEROL (test code = 2093-3) 138 MG/DL See_Comment [Automated messa ge] The system which generated this result transmitted reference range: <200 MG/DL. The reference range was not used to interpret this result as normal/abnormal. HDL CHOLESTEROL (test code = 2085-9) 32 MG/DL See_Comment L [Automated messa ge] The system which generated this result transmitted reference range: >39 MG/DL. The reference range was not used to interpret this result as normal/abnormal. RISK RATIO LDL/HDL (test code = 34815-9) 2.31 RATIO See_Comment [Automated message] The system which generated this result transmitted reference range: <3.55 RATIO. The reference range was not used to interpret this result as normal/abnormal. TRIGLYCERIDES (test code = 2571-8) 232 MG/DL See_Comment H [Automated messa ge] The system which generated this result transmitted reference range: <150 MG/DL. The reference range was not used to interpret this result as normal/abnormal. ALBUMIN/CREATININE RATIO, RANDOM [id number] 00:00:00* Test Item Value Reference Range Interpretation Comme nts ALBUMIN, URINE, RANDOM (test code = 78184-6) 39.4 MG/DL NOT ESTAB MG/DL CALC ALBUMIN/CREAT, RND (test code = 07920-7) 264 MG/G See_Comment H [Automated messa ge] The system which generated this result transmitted reference range: <30 MG/G. The reference range was not used to interpret this result as normal/abnormal. CREATININE, URINE, CONC. (test code = 2161-8) 149.1 MG/DL NOT ESTAB MG/DL COMPREHENSIVE METABOLIC [id number] 00:00:00* Test Item Value Reference Range Interpretation Comme nts ALBUMIN (test code = 1751-7) 4.2 G/DL See_Comment [Automated messa ge] The system which generated this result transmitted reference range: 3.5-5.2 G/DL. The reference range was not used to interpret this result as normal/abnormal. ALKALINE PHOSPHATASE (test code = 6768-6) 184 U/L See_Comment H [Automated message] The system which generated this result transmitted reference range: 40-121 U/L. The reference range was not used to interpret this result as normal/abnormal. BILIRUBIN, TOTAL (test code = 1975-2) 0.3 MG/DL See_Comment [Automated message] The system which generated this result transmitted reference range: <=1.2 MG/DL. The reference range was not used to interpret this result as normal/abnormal. BUN (test code = 3094-0) 17 MG/DL See_Comment [Automated messa ge] The system which generated this result transmitted reference range: 6-20 MG/DL. The reference range was not used to interpret this result as normal/abnormal. CALCIUM (test code = 37080-1) 9.5 MG/DL See_Comment [Automated messa ge] The system which generated this result transmitted reference range: 8.5-10.5 MG/DL. The reference range was not used to interpret this result as normal/abnormal. CALC A/G RATIO (test code = 1759-0) 1.7 RATIO See_Comment [Automated messa ge] The system which generated this result transmitted reference range: 1.0-2.6 RATIO. The reference range was not used to interpret this result as normal/abnormal. CALC BUN/CREAT (test code = 3097-3) 14 RATIO See_Comment [Automated messa ge] The system which generated this result transmitted reference range: 6-28 RATIO. The reference range was not used to interpret this result as normal/abnormal. CALC GLOBULIN (test code = 98675-2) 2.5 G/DL See_Comment [Automated messa ge] The system which generated this result transmitted reference range: 1.9-3.7 G/DL. The reference range was not used to interpret this result as normal/abnormal. CARBON DIOXIDE (test code = 1963-8) 29 MEQ/L See_Comment [Automated messa ge] The system which generated this result transmitted reference range: 19-31 MEQ/L. The reference range was not used to interpret this result as normal/abnormal. CHLORIDE (test code = 2075-0) 102 MEQ/L See_Comment [Automated messa ge] The system which generated this result transmitted reference range: 95-107 MEQ/L. The reference range was not used to interpret this result as normal/abnormal. CREATININE (test code = 2160-0) 1.19 MG/DL See_Comment [Automated messa ge] The system which generated this result transmitted reference range: 0.80-1.40 MG/DL. The reference range was not used to interpret this result as normal/abnormal. eGFR (2020 CKD-EPI) (test code = 62639-7) 74 ML/MIN/1.73 See_Comment [Automated messa ge] The system which generated this result transmitted reference range: >60 ML/MIN/1.73. The reference range was not used to interpret this result as normal/abnormal. GLUCOSE (test code = 1558-6) 227 MG/DL See_Comment H [Automated messa ge] The system which generated this result transmitted reference range: 70-99 MG/DL. The reference range was not used to interpret this result as normal/abnormal. POTASSIUM (test code = 2823-3) 4.8 MEQ/L See_Comment [Automated messa ge] The system which generated this result transmitted reference range: 3.5-5.4 MEQ/L. The reference range was not used to interpret this result as normal/abnormal. PROTEIN, TOTAL (test code = 2885-2) 6.7 G/DL See_Comment [Automated messa ge] The system which generated this result transmitted reference range: 6.1-8.3 G/DL. The reference range was not used to interpret this result as normal/abnormal. AST (test code = 1920-8) 13 U/L See_Comment [Automated messa ge] The system which generated this result transmitted reference range: 9-50 U/L. The reference range was not used to interpret this result as normal/abnormal. ALT (test code = 1742-6) 18 U/L See_Comment [Automated messa ge] The system which generated this result transmitted reference range: 5-50 U/L. The reference range was not used to interpret this result as normal/abnormal. SODIUM (test code = 2951-2) 140 MEQ/L See_Comment [Automated messa ge] The system which generated this result transmitted reference range: 133-146 MEQ/L. The reference range was not used to interpret this result as normal/abnormal. CBC W/AUTO [id number] 00:00:00* Test Item Value Reference Range Interpretation Comme nts NUCLEATED RBCS (test code = 73793-9) 0.0 /100 WBC'S See_Comment [Automated messa ge] The system which generated this result transmitted reference range: 0.0 /100 WBC'S. The reference range was not used to interpret this result as normal/abnormal. ABSOLUTE EOSINOPHILS (test code = 25103-8) 0.28 K/UL See_Comment [Automated messa ge] The system which generated this result transmitted reference range: 0.00-0.50 K/UL. The reference range was not used to interpret this result as normal/abnormal. ABSOLUTE LYMPHOCYTES (test code = 19363-7) 2.17 K/UL See_Comment [Automated messa ge] The system which generated this result transmitted reference range: 1.00-4.00 K/UL. The reference range was not used to interpret this result as normal/abnormal. ABSOLUTE MONOCYTES (test code = 74970-0) 0.53 K/UL See_Comment [Automated messa ge] The system which generated this result transmitted reference range: 0.20-1.00 K/UL. The reference range was not used to interpret this result as normal/abnormal. ABSOLUTE NEUTROPHILS (test code = 80938-8) 4.68 K/UL See_Comment [Automated messa ge] The system which generated this result transmitted reference range: 1.50-7.50 K/UL. The reference range was not used to interpret this result as normal/abnormal. BASOPHILS (test code = 58400-3) 0.6 % EOSINOPHILS (test code = 30501-9) 3.6 % HEMATOCRIT (test code = 12697-8) 48.9 % See_Comment [Automated messa ge] The system which generated this result transmitted reference range: 40.0-51.0 %. The reference range was not used to interpret this result as normal/abnormal. HEMOGLOBIN (test code = 718-7) 16.0 G/DL See_Comment [Automated messa ge] The system which generated this result transmitted reference range: 13.5-17.0 G/DL. The reference range was not used to interpret this result as normal/abnormal. LYMPHOCYTES (test code = 34765-0) 28.1 % MCH (test code = 66535-2) 28.9 PG See_Comment [Automated messa ge] The system which generated this result transmitted reference range: 25.0-33.0 PG. The reference range was not used to interpret this result as normal/abnormal. MCHC (test code = 43120-2) 32.7 G/DL See_Comment [Automated messa ge] The system which generated this result transmitted reference range: 31.0-36.0 G/DL. The reference range was not used to interpret this result as normal/abnormal. MCV (test code = 62683-7) 88.4 fL See_Comment [Automated messa ge] The system which generated this result transmitted reference range: 80.0-99.0 fL. The reference range was not used to interpret this result as normal/abnormal. MONOCYTES (test code = 78579-0) 6.9 % NEUTROPHILS (test code = 94659-0) 60.7 % PLATELET COUNT (test code = 24781-4) 190 K/UL See_Comment [Automated messa ge] The system which generated this result transmitted reference range: 130-400 K/UL. The reference range was not used to interpret this result as normal/abnormal. RBC (test code = 61575-9) 5.53 M/UL See_Comment [Automated messa ge] The system which generated this result transmitted reference range: 4.50-6.10 M/UL. The reference range was not used to interpret this result as normal/abnormal. RDW (test code = 72694-9) 12.1 % See_Comment [Automated messa ge] The system which generated this result transmitted reference range: 11.5-15.0 %. The reference range was not used to interpret this result as normal/abnormal. WBC (test code = 84098-9) 7.7 K/UL See_Comment [Automated messa ge] The system which generated this result transmitted reference range: 3.5-11.0 K/UL. The reference range was not used to interpret this result as normal/abnormal. HEMOGLOBIN [id number] 00:00:00* Test Item Value Reference Range Interpretation Comme [facility] HEMOGLOBIN A1c (test code = 4548-4) 12.1 % See_Comment H [Automated messa ge] The system which generated this result transmitted reference range: 4.2-5.6 %. The reference range was not used to interpret this result as normal/abnormal. LIPID PANEL WITH REFLEX DIRECT [id number] 00:00:00* Test Item Value Reference Range Interpretation Comme nts CALC LDL CHOL (test code = 66404-2) 89 MG/DL See_Comment [Automated messa ge] The system which generated this result transmitted reference range: <100 MG/DL. The reference range was not used to interpret this result as normal/abnormal. CHOLESTEROL (test code = 2093-3) 161 MG/DL See_Comment [Automated messa ge] The system which generated this result transmitted reference range: <200 MG/DL. The reference range was not used to interpret this result as normal/abnormal. HDL CHOLESTEROL (test code = 2085-9) 32 MG/DL See_Comment L [Automated Property Owla ge] The system which generated this result transmitted reference range: >39 MG/DL. The reference range was not used to interpret this result as normal/abnormal. RISK RATIO LDL/HDL (test code = 34898-4) 2.78 RATIO See_Comment [Automated message] The system which generated this result transmitted reference range: <3.55 RATIO. The reference range was not used to interpret this result as normal/abnormal. TRIGLYCERIDES (test code = 2571-8) 335 MG/DL See_Comment H [Automated Property Owla ge] The system which generated this result transmitted reference range: <150 MG/DL. The reference range was not used to interpret this result as normal/abnormal. ALBUMIN/CREATININE RATIO, RANDOM [id number] 00:00:00* Test Item Value Reference Range Interpretation Comme nts ALBUMIN, URINE, RANDOM (test code = 94446-1) 14.5 MG/DL NOT ESTAB MG/DL CALC ALBUMIN/CREAT, RND (test code = 41047-0) 279 MG/G See_Comment H [Automated messa ge] The system which generated this result transmitted reference range: <30 MG/G. The reference range was not used to interpret this result as normal/abnormal. CREATININE, URINE, CONC. (test code = 2161-8) 51.9 MG/DL NOT ESTAB MG/DL COMPREHENSIVE METABOLIC [id number] 00:00:00* Test Item Value Reference Range Interpretation Comme nts ALBUMIN (test code = 1751-7) 4.7 G/DL See_Comment [Automated messa ge] The system which generated this result transmitted reference range: 3.5-5.2 G/DL. The reference range was not used to interpret this result as normal/abnormal. ALKALINE PHOSPHATASE (test code = 6768-6) 239 U/L See_Comment H [Automated message] The system which generated this result transmitted reference range: 40-118 U/L. The reference range was not used to interpret this result as normal/abnormal. BILIRUBIN, TOTAL (test code = 1975-2) 0.3 MG/DL See_Comment [Automated message] The system which generated this result transmitted reference range: <=1.2 MG/DL. The reference range was not used to interpret this result as normal/abnormal. BUN (test code = 3094-0) 20 MG/DL See_Comment [Automated messa ge] The system which generated this result transmitted reference range: 6-20 MG/DL. The reference range was not used to interpret this result as normal/abnormal. CALCIUM (test code = 51810-0) 10.3 MG/DL See_Comment [Automated messa ge] The system which generated this result transmitted reference range: 8.5-10.5 MG/DL. The reference range was not used to interpret this result as normal/abnormal. CALC A/G RATIO (test code = 1759-0) 1.7 RATIO See_Comment [Automated messa ge] The system which generated this result transmitted reference range: 1.0-2.6 RATIO. The reference range was not used to interpret this result as normal/abnormal. CALC BUN/CREAT (test code = 3097-3) 20 RATIO See_Comment [Automated messa ge] The system which generated this result transmitted reference range: 6-28 RATIO. The reference range was not used to interpret this result as normal/abnormal. CALC GLOBULIN (test code = 42950-3) 2.7 G/DL See_Comment [Automated messa ge] The system which generated this result transmitted reference range: 1.9-3.7 G/DL. The reference range was not used to interpret this result as normal/abnormal. CARBON DIOXIDE (test code = 1962-8) 27 MEQ/L See_Comment [Automated messa ge] The system which generated this result transmitted reference range: 19-31 MEQ/L. The reference range was not used to interpret this result as normal/abnormal. CHLORIDE (test code = 2075-0) 99 MEQ/L See_Comment [Automated messa ge] The system which generated this result transmitted reference range: 95-107 MEQ/L. The reference range was not used to interpret this result as normal/abnormal. CREATININE (test code = 2160-0) 1.01 MG/DL See_Comment [Automated messa ge] The system which generated this result transmitted reference range: 0.80-1.40 MG/DL. The reference range was not used to interpret this result as normal/abnormal. eGFR (2020 CKD-EPI) (test code = 45427-1) 91 ML/MIN/1.73 See_Comment [Automated messa ge] The system which generated this result transmitted reference range: >60 ML/MIN/1.73. The reference range was not used to interpret this result as normal/abnormal. GLUCOSE (test code = 1558-6) 349 MG/DL See_Comment H [Automated messa ge] The system which generated this result transmitted reference range: 70-99 MG/DL. The reference range was not used to interpret this result as normal/abnormal. POTASSIUM (test code = 2823-3) 4.7 MEQ/L See_Comment [Automated messa ge] The system which generated this result transmitted reference range: 3.5-5.4 MEQ/L. The reference range was not used to interpret this result as normal/abnormal. PROTEIN, TOTAL (test code = 2885-2) 7.4 G/DL See_Comment [Automated messa ge] The system which generated this result transmitted reference range: 6.1-8.3 G/DL. The reference range was not used to interpret this result as normal/abnormal. AST (test code = 1920-8) 16 U/L See_Comment [Automated messa ge] The system which generated this result transmitted reference range: 9-50 U/L. The reference range was not used to interpret this result as normal/abnormal. ALT (test code = 1742-6) 22 U/L See_Comment [Automated messa ge] The system which generated this result transmitted reference range: 5-50 U/L. The reference range was not used to interpret this result as normal/abnormal. SODIUM (test code = 2951-2) 139 MEQ/L See_Comment [Automated messa ge] The system which generated this result transmitted reference range: 133-146 MEQ/L. The reference range was not used to interpret this result as normal/abnormal. HEMOGLOBIN [id number] 00:00:00* Test Item Value Reference Range Interpretation Comme nts A1C (test code = 4548-4) 11.2 HEMOGLOBIN [id number] 00:00:00* Test Item Value Reference Range Interpretation Comme nts A1C (test code = 4548-4) 10.9
--- NOTE | 2023-10-31 02:52 | ER ---
Nurse's Notes [facility] Name: Guille Dunham Age: 53 yrs Sex: Male : 1970 Arrival Date: 10/31/2023 Time: 02:39 Bed IW1 Private MD: Diagnosis: Acute suppurative otitis media Presentation: 10/30 02:47 Chief complaint: Patient states: I woke up around 10pm with a shooting pain in my left jb4 ear. I cannot sleep. Coronavirus screen: At this time, the client does not indicate any symptoms associated with coronavirus-19. Ebola Screen: No symptoms or risks identified at this time. Initial Sepsis Screen: Does the patient meet any 2 criteria? No. Patient's initial sepsis screen is negative. Does the patient have a suspected source of infection? No. Patient's initial sepsis screen is negative. Risk Assessment: Do you want to hurt yourself or someone else? Patient reports desire/thoughts of hurting themselves or someone else. Provider notified. Onset of symptoms was October 31, 2023. Transition of care: patient was not received from another setting of care. 02:47 Method Of Arrival: Ambulatory jb4 02:47 Acuity: JANICE 4 jb4 Historical: - Allergies: 02:49 NKDA; jb4 - PMHx: 02:49 Diabetes - IDDM; Hyperlipidemia; Hypertension; jb4 - Immunization history:: Adult Immunizations up to date. - Infectious Disease History:: Denies. - Social history:: Smoking status: Patient denies any tobacco usage or history of. Screenin:49 [facility] ED Fall Risk Assessment (Adult) History of falling in the last 3 months, jb4 including since admission No falls in past 3 months (0 pts) Confusion or Disorientation No (0 pts) Intoxicated or Sedated No (0 pts) Impaired Gait No (0 pts) Mobility Assist Device Used No (0 pt) Altered Elimination No (0 pt) Score/Fall Risk Level 0 - 2 = Low Risk Oriented to surroundings, Maintained a safe environment. Abuse screen: Denies threats or abuse. Nutritional screening: No deficits noted. Tuberculosis screening: No symptoms or risk factors identified. Assessment: 02:49 General: Appears in no apparent distress. uncomfortable, Behavior is calm, cooperative, jb4 appropriate for age. Pain: Pain currently is 10 out of 10 on a pain scale. Quality of pain is described as stabbing, Pain began 10pm. Neuro: Level of Consciousness is awake, alert, obeys commands, Oriented to person, place, time, situation. Cardiovascular: Patient's skin is warm and dry. Respiratory: Airway is patent Respiratory effort is even, unlabored, Respiratory pattern is regular, symmetrical. GI: No signs and/or symptoms were reported involving the gastrointestinal system. : No signs and/or symptoms were reported regarding the genitourinary system. EENT: Tympanic membrane reddened on left ear Ear canal clear on left ear. Derm: Skin is intact, Skin is pink, warm \T\ dry. Musculoskeletal: Circulation, motion, and sensation intact. Range of motion: intact in all extremities. Vital Signs: 02:47 BP 197 / 100; Pulse 86; Resp 16; Temp 98.5(O); Pulse Ox 95% on R/A; Weight 132.9 kg; jb4 Height 5 ft. 9 in. (R); Pain 10/10; 02:47 Body Mass Index 43.27 (132.90 kg, 175.26 cm) jb4 02:47 Pain Scale: Adult jb4 ED Course: 02:41 Patient arrived in ED. jj6 02:42 Mandeep Lynch MD is Attending Physician. ec2 02:49 Triage completed. jb4 02:49 Arm band placed on right wrist. jb4 02:49 Patient has correct armband on for positive identification. Bed in low position. Call jb4 light in reach. Side rails up X 1. Provided Education on: plan of care. 02:49 No provider procedures requiring assistance completed. Patient did not have IV access jb4 during this emergency room visit. Administered Medications: 03:12 Drug: Ketorolac IM 30 mg IM once Route: IM; Site: right deltoid; jb4 03:13 Follow up: Response: Medication administered at discharge. jb4 03:12 Drug: Methocarbamol PO 500 mg PO once Route: PO; jb4 03:13 Follow up: Response: Medication administered at discharge. jb4 03:12 Drug: Acetaminophen PO 1000 mg PO once Route: PO; jb4 03:13 Follow up: Response: Medication administered at discharge. jb4 03:12 Drug: Amoxicillin-Clavulanate PO 875 mg PO once Route: PO; jb4 03:13 Follow up: Response: Medication administered at discharge. jb4 Medication: 02:49 VIS not applicable for this client. jb4 Outcome: 02:51 Discharge ordered by . ec2 03:13 Patient left the ED. jb4 Signatures: Josue De Los Santos RN RN jb4 Alem Redmond jj6 Mandeep Lynch MD MD ec2
--- NOTE | 2023-10-31 02:52 | EDPHYS ---
Physician Documentation [facility] Name: Guille Dunham Age: 53 yrs Sex: Male : 1970 Arrival Date: 10/31/2023 Time: 02:39 Bed IW1 Private MD: ED Physician Mandeep Lycnh HPI: 10/30 02:53 This 53 yrs old Male presents to ER via Ambulatory with complaints of Ear Pain.ec2 02:53 Patient arrives today for left ear pain. Onset tonight. No fevers or chills, no nausea ec2 or vomiting.. Historical: - Allergies: 02:49 NKDA; jb4 - PMHx: 02:49 Diabetes - IDDM; Hyperlipidemia; Hypertension; jb4 - Immunization history:: Adult Immunizations up to date. - Infectious Disease History:: Denies. - Social history:: Smoking status: Patient denies any tobacco usage or history of. ROS: 02:53 Constitutional: as per hpi ec2 Exam: 02:53 Constitutional: GEN: NAD Head: atraumatic Eyes: EOMI Ears: External ears are normal. ec2 Left ear with suppurative fluid behind the membrane, erythema within the canal CV: regular rate LUNGS: no respiratory distress ABD: non-distended SKIN: no evidence of rashes MSK: no evidence of trauma NEURO: moves all extremities equally Vital Signs: 02:47 BP 197 / 100; Pulse 86; Resp 16; Temp 98.5(O); Pulse Ox 95% on R/A; Weight 132.9 kg; jb4 Height 5 ft. 9 in. (R); Pain 10/10; 02:47 Body Mass Index 43.27 (132.90 kg, 175.26 cm) jb4 02:47 Pain Scale: Adult jb4 MDM: 02:45 Patient medically screened. ec2 02:54 Data reviewed: vital signs, nurses notes. ED course: Patient arrives for left ear pain. ec2 Examination remarkable for ear findings as above. Presentation consistent with otitis media. Considered other process such as mastoiditis, cellulitis, otitis externa. Considered obtaining lab test as well as CT imaging.. Administered Medications: 03:12 Drug: Ketorolac IM 30 mg IM once Route: IM; Site: right deltoid; jb4 03:13 Follow up: Response: Medication administered at discharge. jb4 03:12 Drug: Methocarbamol PO 500 mg PO once Route: PO; jb4 03:13 Follow up: Response: Medication administered at discharge. jb4 03:12 Drug: Acetaminophen PO 1000 mg PO once Route: PO; jb4 03:13 Follow up: Response: Medication administered at discharge. jb4 03:12 Drug: Amoxicillin-Clavulanate PO 875 mg PO once Route: PO; jb4 03:13 Follow up: Response: Medication administered at discharge. jb4 Disposition Summary: 10/31/23 02:51 Discharge Ordered Notes: Location: Home ec2 Condition: Stable ec2 Diagnosis - Acute suppurative otitis media ec2 Followup: ec2 - With: Private Physician - When: - Reason: Re-evaluation by your physician Discharge Instructions: - Discharge Summary Sheet ec2 - Otitis Media, Adult, [id number] ec2 Forms: - Medication Reconciliation Form ec2 - Antibiotic Education ec2 - Prescription Opioid Use ec2 - Patient Portal Instructions ec2 - Leadership Thank You Letter ec2 Prescriptions: - Augmentin 875-125 mg Oral Tablet - take 1 tablet ORAL route every 12 hours for 10 days; 20 tablet; Refills: 0, ec2 Product Selection Permitted - methocarbamol 500 mg Oral tablet - take 2 tablets ORAL route 4 times per day; 20 tablet; Refills: 0, Product ec2 Selection Permitted Signatures: Josue De Los Santos RN RN jb4 Mandeep Lynch MD MD ec2
[2023-10-31] MEDS ORDERED: ACETAMINOPHEN 500 MG TAB ONE (03:01)
[2023-10-31] MEDS ORDERED: AMOX/K CLAV 875 MG TAB ONE (03:02)
[2023-10-31] MEDS ORDERED: methocarbamoL 500 MG TAB ONE (03:02)
[2023-10-31] MEDS ORDERED: KETOROLAC 30 MG/ML INJ ONE (03:02)
[2023-10-31 11:54] VITALS: BP 197/100; TEMP 98.5; O2SAT 95
== END 2023-10-31 03:13 | disposition home or self-care (01) ==
LOC: ER 02:39
DX: H66.002 Acute suppurative otitis media without spontaneous rupture of ear drum, left ear (principal)
CPT/HCPCS: 96372; 99284

== ENCOUNTER 2024-05-08 14:54 | Emergency (ER) | payer BC, OTHER ==
--- OUTSIDE RECORDS SUMMARY | 2024-05-08 15:05 | XMS REPORT | Continuity of Care Document ---
Author Name Unknown Address [address] [facility] [address] [place] [address] [facility] thconnect Address [address] [facility] [place] [address] Care Team Providers Care Bulk Pallet Builder Name Role Phone KURT FLORIAN Primary Care Physician Unavailab Ankita Owen Attending Clinician Unavail able Kurt Florian Attending Clinician Unavailable HÉCTOR VELASQUEZ Attending Clinician Unavailable Héctor Velasquez MD Attending Clinician [phone] Matt Drake MD Attending Clinician + MARGARITO GRAY Attending Clinician Unavailable Margarito Gray MD Attending Clinician [phone] HÉCTOR VELASQUEZ Admitting Clinician Unavailable MARGARITO GRAY Admitting Clinician Unavailable Payers Payer Name Policy Type Policy Number Effective Date Expiration Date Source [employer] 53 [id number] 2018 00:00:00 [facility] COMMERCIAL NON-CONTRACT GENERIC [id number] 2019 00:00:00 Problems Condition Name Condition Details Condition Category Status Onset Date Resolution Date Last Treatment Date Treating Clinician Comments Source [id number] Long-term insulin use Problem [facility] Mixed hyperlipid emia Mixed hyperlipid emia Problem [facility] [id number] Type 2 diabetes mellitus with hyperglyce alessandra, unspecifie d whether prison insulin use Problem [facility] Diabetic polyneurop athy Diabetic polyneurop athy associated with other specified diabetes mellitus Problem [facility] [id number] Allergic rhinitis, unspecifie d seasonalit y, unspecifie d trigger Problem [facility] Type II diabetes mellitus without complicati on Controlled type 2 diabetes mellitus without complicati on, 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 Problem [facility] Benign essential hypertensi on Benign essential hypertensi on Problem [facility] Nonprolife rative retinopath y due to type 2 diabetes mellitus (disorder) Nonprolife rative diabetic retinopath y associated with type 2 diabetes mellitus Problem [facility] [id number] Panic attacks Problem [facility] [id number] Polyneurop athy Problem [facility] [id number] Current severe episode of major depressive disorder without psychotic features without prior episode Problem [facility] [id number] Hearing loss of left ear, unspecifie d hearing loss type Problem [facility] [id number] GUERITA (generaliz ed anxiety disorder) Problem [facility] [id number] IVCKIE (obstructi ve sleep apnea) Problem [facility] [id number] Obesity, morbid, BMI 40.0-49.9 Problem [facility] Allergies, Adverse Reactions, Alerts Allergy Name Allergy Type Status Severity Reaction(s) Onset Date Inactive Date Treating Clinician Comments Source NO KNOWN ALLERGIE S Drug Class Active [facility] Social History Social Habit Start Date Stop Date Quantity Comments Source Sexual orientation [facility] History of Tobacco Use [facility] Sex Assigned At 1970 00:00:00 1970 00:00:00 [facility] Smoking Status Start Date Stop Date Source Tobacco smoking consumption unknown [facility] Never Smoker [facility] Medications Ordered Medication Name Filled Medication Name Start Date Stop Date Current Medication? Ordering Clinician Indication Dosage Frequency Signature (SIG) Comments Components Source Promethazin e-DM 6.25-15 MG/5ML Promethazin e-DM 6.25-15 MG/5ML 2023-04 2-12 00:00: 00 No 5{ml_as _needed } QID Promethazi ne-DM 6.25-15 MG/5ML Albuterol Sulfate HFA 108 (90 Base) MCG/ACT Albuterol Sulfate HFA 108 (90 Base) MCG/ACT 2023-04 2-12 00:00: 00 No 1{puff_ as_need ed} 6xD Albuterol Sulfate HFA 108 (90 Base) MCG/ACT Amoxicillin -Pot Clavulanate 500-125 MG Amoxicillin -Pot Clavulanate 500-125 MG 2023-04 2- 00:00: 00 No 1{table t} BID Amoxicilli n-Pot Clavulanat e 500-125 MG Klor-Con 20 MEQ Klor-Con 20 MEQ 2023-04 1- 00:00: 00 No 1{packe t_with_ food} QD Klor-Con 20 MEQ Magnesium Oxide 400 MG Magnesium Oxide 400 MG 2023-04 1- 00:00: 00 No 1{table t_as_ne eded} QD Magnesium Oxide 400 MG Jardiance 10 MG Jardiance 10 MG 9-30 00:00: 00 No 1{table t} QD Jardiance 10 MG Furosemide 20 MG Furosemide 20 MG 8- 00:00: 00 No 1{table t} BID Furosemide 20 MG ALPRAZolam 0.5 MG ALPRAZolam 0.5 MG 8 00:00: 00 No 1{table t} QD ALPRAZolam 0.5 MG triamcinolo ne acetonide (KENALOG) injection 30 mg 07-03 22:45: 00 07-03 22:20 :00 No 30mg 30 mg, Infiltrati on, ONCE, 1 dose, On Sun07/03/22 at 1745, [facility]% (XYLOCAINE) 20 mg/mL (2 %) injection 10 mL 07-03 22:00: 00 07-03 22:20 :00 No 10mL 10 mL, Infiltrati on, ONCE, 1 dose, On Sun07/03/22 at 1700, General acute hospital ketorolac (TORADOL) injection 60 mg 07-03 21:45: 00 07-03 21:19 :00 No 60mg 60 mg, Intramuscu lar, ONCE NOW, 1 dose, On Sun07/03/22 at 1645, [facility] acute hospital gabapentin (NEURONTIN) capsule 300 mg 07-03 21:00: 00 07-03 21:00 :00 No 300mg 300 mg, Oral, ONCE, 1 dose, On Sun07/03/22 at 1600, [facility] acute hospital HYDROcodone -acetaminop hen (NORCO 5) 5-325 mg tablet 2 tablet 07-03 21:00: 00 07-03 21:19 :00 No 2{tbl} 2 tablet, Oral, ONCE, 1 dose, On Sun07/03/22 at 1600, [facility] acute hospital ketorolac 10 mg tablet 07-03 00:00: 00 Yes [id number] 10mg Take 1 tablet by mouth every 6 (six) hours as needed for Pain (scale 4-6) or Pain (scale 7-10). [facility] acetaminoph en (TYLENOL ARTHRITIS PAIN) 650 mg CR tablet 07-03 00:00: 00 Yes [id number] 650mg Take 1 tablet by mouth every 8 (eight) hours as needed for Pain. [facility] gabapentin (NEURONTIN) 100 mg capsule 07-03 00:00: 00 Yes [id number] 100mg Take 1 capsule by mouth in the morning and 1 capsule at noon and 1 capsule in the evening. [facility] hydroCHLORO thiazide 12.5 MG hydroCHLORO thiazide 12.5 MG 8-17 00:00: 00 No 1{capsu le_in_t he_morn ing} QD hydroCHLOR Othiazide 12.5 MG metFORMIN HCl ER 500 MG metFORMIN HCl ER 500 MG 08-17 00:00: 00 No 1{table t_with_ evening _meal} BID metFORMIN HCl ER 500 MG Glimepiride 4 MG Glimepiride 4 MG No 1{table t_with_ meals} BID Glimepirid e 4 MG Aspirin Adult Low Strength 81 MG Aspirin Adult Low Strength 81 MG No 1{table t} QD Aspirin Adult Low Strength 81 MG NovoLIN 70/30 ReliOn (70-30) 100 UNIT/ML NovoLIN 70/30 ReliOn (70-30) 100 UNIT/ML No BID NovoLIN 70/30 ReliOn (70-30) 100 UNIT/ML Lisinopril 40 MG Lisinopril 40 MG No 1{table t} QD Lisinopril 40 MG Gabapentin 600 MG Gabapentin 600 MG No 1{capsu le} TID Gabapentin 600 MG Trulicity 0.75 MG/0.5ML Trulicity 0.75 MG/0.5ML No Trulicity 0.75 MG/0.5ML Lipitor 20 MG Lipitor 20 MG No 1{table t} QD Lipitor 20 MG FLUoxetine HCl 10 MG FLUoxetine HCl 10 MG No 1{table t} QD FLUoxetine HCl 10 MG Immunizations Ordered Immunization Name Filled Immunization Name Date Status Comments Source Adacel (Tdap) Adacel (Tdap) 2021-01-20 15:17:00 Completed [facility] Adacel (Tdap) Adacel (Tdap) 2021-01-20 15:17:00 Completed [facility] Adacel (Tdap) Adacel (Tdap) Unknown Completed [facility] Adacel (Tdap) Adacel (Tdap) Unknown Completed [facility] Adacel (Tdap) Adacel (Tdap) Unknown Completed [facility] Adacel (Tdap) Adacel (Tdap) Unknown Completed [facility] Adacel (Tdap) Adacel (Tdap) Unknown Completed [facility] Adacel (Tdap) Adacel (Tdap) Unknown Completed [facility] Adacel (Tdap) Adacel (Tdap) Unknown Completed Co on [facility] Adacel (Tdap) Adacel (Tdap) Unknown Completed Co on [facility] Adacel (Tdap) Adacel (Tdap) Unknown Completed [facility] Vital Signs Vital Name Observation Time Observation Value Comments S ource height 2024-02-08 10:30:00 69 [in_i] Commo n [facility] weight 2024-02-08 10:30:00 332.0 [lb_av] Co [facility] temperature 2024-02-08 10:30:00 97.6 [degF] Com [facility] bmi 2024-02-08 10:30:00 49.02 kg/m2 Comm on [facility] oximetry 2024-02-08 10:30:00 95 % Commo n [facility] respiratory rate 2024-02-08 10:30:00 16 /min [facility] blood pressure systolic 2024-02-08 10:30:00 140 mm[Hg] Common [facility] blood pressure diastolic 2024-02-08 10:30:00 85 mm[Hg] Common [facility] height 2023-12-31 08:20:00 69 [in_i] Commo n [facility] weight 2023-12-31 08:20:00 313 [lb_av] Comm on [facility] temperature 2023-12-31 08:20:00 98.3 [degF] Com [facility] bmi 2023-12-31 08:20:00 46.22 kg/m2 Comm on [facility] oximetry 2023-12-31 08:20:00 96 % Commo n [facility] respiratory rate 2023-12-31 08:20:00 18 /min [facility] blood pressure systolic 2023-12-31 08:20:00 139 mm[Hg] Common [facility] blood pressure diastolic 2023-12-31 08:20:00 84 mm[Hg] [facility] height 2023-11-29 08:30:00 69 [in_i] Commo n [facility] weight 2023-11-29 08:30:00 313 [lb_av] Comm on [facility] temperature 2023-11-29 08:30:00 97.7 [degF] Com mon [facility] bmi 2023-11-29 08:30:00 46.22 kg/m2 Comm on [facility] oximetry 2023-11-29 08:30:00 98 % Commo n [facility] blood pressure systolic 2023-11-29 08:30:00 148 mm[Hg] Common [facility] blood pressure diastolic 2023-11-29 08:30:00 88 mm[Hg] [facility] height 2023-11-07 09:20:00 69 [in_i] Commo n [facility] weight 2023-11-07 09:20:00 303.4 [lb_av] Co [facility] temperature 2023-11-07 09:20:00 98.1 [degF] Com mon [facility] bmi 2023-11-07 09:20:00 44.8 kg/m2 Commo n [facility] oximetry 2023-11-07 09:20:00 95 % Commo n [facility] respiratory rate 2023-11-07 09:20:00 18 /min Common [facility] blood pressure systolic 2023-11-07 09:20:00 147 mm[Hg] [facility] blood pressure diastolic 2023-11-07 09:20:00 90 mm[Hg] Common [facility] height 2023-09-27 08:40:00 69 [in_i] Commo n [facility] weight 2023-09-27 08:40:00 293.4 [lb_av] Co [facility] temperature 2023-09-27 08:40:00 97.7 [degF] Com mon [facility] bmi 2023-09-27 08:40:00 43.32 kg/m2 Comm on [facility] oximetry 2023-09-27 08:40:00 97 % Commo n [facility] blood pressure systolic 2023-09-27 08:40:00 148 mm[Hg] Common [facility] blood pressure diastolic 2023-09-27 08:40:00 78 mm[Hg] Common [facility] height 2023-06-26 08:00:00 69 [in_i] Commo n [facility] weight 2023-06-26 08:00:00 296 [lb_av] Comm on [facility] bmi 2023-06-26 08:00:00 43.71 kg/m2 Comm on [facility] blood pressure systolic 2023-06-26 08:00:00 127 mm[Hg] [facility] blood pressure diastolic 2023-06-26 08:00:00 80 mm[Hg] Common [facility] height 2023-03-28 16:00:00 69 [in_i] Commo n [facility] weight 2023-03-28 16:00:00 290 [lb_av] Comm on [facility] bmi 2023-03-28 16:00:00 42.82 kg/m2 Comm on [facility] blood pressure systolic 2023-03-28 16:00:00 135 mm[Hg] [facility] blood pressure diastolic 2023-03-28 16:00:00 73 mm[Hg] [facility] Systolic blood pressure 2023-01-28 16:00:00 175 mm[Hg] [facility] Diastolic blood pressure 2023-01-28 16:00:00 100 mm[Hg] [facility] Heart rate 2023-01-28 16:00:00 72 /min Unive [facility] Body temperature 2023-01-28 16:00:00 36.78 Edie [facility] Respiratory rate 2023-01-28 16:00:00 16 /min [facility] Oxygen saturation in Arterial blood by Pulse oximetry 2023-01-28 16:00:00 98 /min [facility] Body height 2023-01-28 12:49:00 175.3 cm [facility] Body weight 2023-01-28 12:49:00 134.582 kg [facility] BMI 2023-01-28 12:49:00 43.81 kg/m2 [facility] height 2022-12-20 13:00:00 69 [in_i] Commo n [facility] weight 2022-12-20 13:00:00 290 [lb_av] Comm on [facility] bmi 2022-12-20 13:00:00 42.82 kg/m2 Comm on [facility] blood pressure systolic 2022-12-20 13:00:00 132 mm[Hg] Common [facility] blood pressure diastolic 2022-12-20 13:00:00 70 mm[Hg] [facility] height 2022-09-15 11:00:00 69 [in_i] Commo n [facility] weight 2022-09-15 11:00:00 293.4 [lb_av] Co [facility] temperature 2022-09-15 11:00:00 98.1 [degF] Com mon [facility] bmi 2022-09-15 11:00:00 43.32 kg/m2 Comm on [facility] oximetry 2022-09-15 11:00:00 99 % Commo n [facility] respiratory rate 2022-09-15 11:00:00 18 /min Common [facility] blood pressure systolic 2022-09-15 11:00:00 138 mm[Hg] [facility] blood pressure diastolic 2022-09-15 11:00:00 74 mm[Hg] Common [facility] Systolic blood pressure 2022-07-03 20:46:00 192 mm[Hg] [facility] Diastolic blood pressure 2022-07-03 20:46:00 98 mm[Hg] [facility] Heart rate 2022-07-03 20:46:00 79 /min Unive [facility] Body temperature 2022-07-03 20:46:00 36.72 Edie [facility] Respiratory rate 2022-07-03 20:46:00 18 /min [facility] Body weight 2022-07-03 20:46:00 131.543 kg Univ [facility] Oxygen saturation in Arterial blood by Pulse oximetry 2022-07-03 20:46:00 97 /min [facility] height 2022-05-23 11:30:00 69 [in_i] Commo n [facility] weight 2022-05-23 11:30:00 285 [lb_av] Comm on [facility] temperature 2022-05-23 11:30:00 98 [degF] Comm on [facility] bmi 2022-05-23 11:30:00 42.08 kg/m2 Comm on [facility] blood pressure systolic 2022-05-23 11:30:00 132 mm[Hg] Common [facility] blood pressure diastolic 2022-05-23 11:30:00 72 mm[Hg] Common [facility] height 2022-02-20 09:50:00 69 [in_i] Commo n [facility] weight 2022-02-20 09:50:00 281.2 [lb_av] Co mmon [facility] temperature 2022-02-20 09:50:00 97.2 [degF] Com mon [facility] bmi 2022-02-20 09:50:00 41.52 kg/m2 Comm on [facility] oximetry 2022-02-20 09:50:00 94 % Commo n [facility] respiratory rate 2022-02-20 09:50:00 16 /min Common [facility] blood pressure systolic 2022-02-20 09:50:00 143 mm[Hg] [facility] blood pressure diastolic 2022-02-20 09:50:00 76 mm[Hg] [facility] height 2021-11-16 16:10:00 69 [in_i] Commo n [facility] weight 2021-11-16 16:10:00 295 [lb_av] Comm on [facility] temperature 2021-11-16 16:10:00 97.6 [degF] Com [facility] bmi 2021-11-16 16:10:00 43.56 kg/m2 Comm on [facility] oximetry 2021-11-16 16:10:00 97 % Commo n [facility] respiratory rate 2021-11-16 16:10:00 16 /min Common [facility] blood pressure systolic 2021-11-16 16:10:00 135 mm[Hg] Common [facility] blood pressure diastolic 2021-11-16 16:10:00 74 mm[Hg] [facility] height 2021-09-20 08:50:00 60 [in_i] Commo n [facility] weight 2021-09-20 08:50:00 294.5 [lb_av] Co mmon [facility] temperature 2021-09-20 08:50:00 97.9 [degF] Com [facility] bmi 2021-09-20 08:50:00 57.51 kg/m2 Comm on [facility] oximetry 2021-09-20 08:50:00 95 % Commo n [facility] respiratory rate 2021-09-20 08:50:00 16 /min Common [facility] blood pressure systolic 2021-09-20 08:50:00 137 mm[Hg] [facility] blood pressure diastolic 2021-09-20 08:50:00 77 mm[Hg] [facility] height 2021-08-17 15:50:00 60 [in_i] Commo n [facility] weight 2021-08-17 15:50:00 297.4 [lb_av] Co on [facility] temperature 2021-08-17 15:50:00 97.9 [degF] Com [facility] bmi 2021-08-17 15:50:00 58.08 kg/m2 Comm on [facility] oximetry 2021-08-17 15:50:00 95 % Commo n [facility] respiratory rate 2021-08-17 15:50:00 16 /min Common [facility] blood pressure systolic 2021-08-17 15:50:00 139 mm[Hg] [facility] blood pressure diastolic 2021-08-17 15:50:00 88 mm[Hg] [facility] height 2021-04-20 16:00:00 60 [in_i] Commo n [facility] weight 2021-04-20 16:00:00 279.6 [lb_av] Co mmon [facility] temperature 2021-04-20 16:00:00 98.2 [degF] Com [facility] bmi 2021-04-20 16:00:00 54.6 kg/m2 Commo n [facility] oximetry 2021-04-20 16:00:00 96 % Commo n [facility] respiratory rate 2021-04-20 16:00:00 17 /min [facility] blood pressure systolic 2021-04-20 16:00:00 134 mm[Hg] Common [facility] blood pressure diastolic 2021-04-20 16:00:00 76 mm[Hg] Common [facility] blood pressure diastolic 2021-02-22 16:10:00 87 mm[Hg] [facility] height 2021-02-22 16:10:00 60 [in_i] Commo n [facility] weight 2021-02-22 16:10:00 288.2 [lb_av] Co [facility] temperature 2021-02-22 16:10:00 98.1 [degF] Com [facility] bmi 2021-02-22 16:10:00 56.28 kg/m2 Comm on [facility] oximetry 2021-02-22 16:10:00 96 % Commo n [facility] respiratory rate 2021-02-22 16:10:00 18 /min [facility] blood pressure systolic 2021-02-22 16:10:00 138 mm[Hg] [facility] height 2021-01-20 15:00:00 60 [in_i] Commo n [facility] weight 2021-01-20 15:00:00 289.8 [lb_av] Co [facility] temperature 2021-01-20 15:00:00 97.5 [degF] Com [facility] bmi 2021-01-20 15:00:00 56.59 kg/m2 Comm on [facility] oximetry 2021-01-20 15:00:00 94 % Commo n [facility] respiratory rate 2021-01-20 15:00:00 19 /min [facility] blood pressure systolic 2021-01-20 15:00:00 142 mm[Hg] [facility] blood pressure diastolic 2021-01-20 15:00:00 78 mm[Hg] [facility] Procedures Procedure Date / Time Performed Performing Clinician Source EKG-12 LEAD 2023-01-28 15:26:06 Héctor Velasquez [facility] DUPLEX VENOUS LEG RIGHT - BY VASCULAR LAB 2023-01-28 15:17:03 Héctor Velasquez [facility] XR SHOULDER 2+ VW LEFT 2023-01-28 13:45:51 Cande Velasquez [facility] CONSENT/REFUSAL FOR DIAGNOSIS AND TREATMENT 2023-01-28 12:23:21 Doctor Unassigned, [place] [facility] ND ARTHROCENTESIS ASPIR&/INJ INTERM JT/BURS W/O US 2022-07-03 22:09:31 Margarito Gray [facility] XR SHOULDER 2+ VW LEFT 2022-07-03 21:39:00 Silvio Gray [facility] CONSENT/REFUSAL FOR DIAGNOSIS AND TREATMENT 2022-07-03 20:42:01 Doctor Unassigned, [place] [facility] NOTICE OF PRIVACY PRACTICES 2022-07-03 20:41:04 Doctor Unassigned, [place] [facility] Encounters Start Date/Time End Date/Time Encounter Type Admission Type Attending Clinicians Care Facility Care Department Encounter ID Source 2024-05-07 09:42:00 Outpatient [facility] [id number] [facility] 2024-01-10 13:46:00 Outpatient Ankita Pressley [facility] [id number] [facility] 2023-12-27 11:29:00 [facility] [id number] [facility] 2023-11-23 14:00:00 Out[facility] Florian, [facility] [id number] [facility] 2023-11-07 08:16:00 [facility] [id number] [facility] 2023-09-25 10:43:00 [id number] [facility] 2022-09-06 08:06:00 Outpatient Florian, Kurt [facility] [id number] [facility] 2022-02-17 09:35:01 Outpatient Florian, Kurt [facility] [id number] [facility] 2021-12-16 14:36:01 Outpatient Florian, Kurt [facility] [id number] [facility] 2021-11-21 10:37:01 Outpatient Florian, Kurt [facility] [id number] [facility] 2021-10-20 14:27:00 Outpatient Florian, Kurt [facility] [id number] [facility] 2021-08-26 14:19:00 Outpatient Folrian, Kurt [facility] [id number] [facility] 2021-04-27 13:16:15 Outpatient Florian, Kurt [facility] [id number] [facility] 2021-04-27 12:22:19 Outpatient Florian, Kurt [facility] [id number] [facility] 2021-04-27 11:59:06 Outpatient Florian, Kurt [facility] [id number] [facility] 2021-04-27 11:57:33 Outpatient Florian, Kurt [facility] [id number] [facility] 2021-04-27 11:19:32 Outpatient Florian, Kurt [facility] [id number] [facility] 2021-04-27 11:18:34 Outpatient Florian, Kurt [facility] [id number] [facility] 2021-04-27 11:08:06 Outpatient Florian, Kurt [facility] [id number] [facility] 2024-03-13 00:00:00 2024-03-13 00:00:00 OFFICE VISIT ESTAB PT LEVEL 4 [facility] [id number] [facility] 2024-02-08 00:00:00 2024-02-08 00:00:00 OFFICE VISIT ESTAB PT LEVEL 4 STLMLC STLMLC [id number] [facility] 2024-01-02 00:00:00 2024-01-02 00:00:00 (TEL) STLMLC STLMLC [id number] [facility] 2023-12-31 00:00:00 2023-12-31 00:00:00 (ESTPT) Felicitye d Patient STLMLC STLMLC [id number] [facility] 2023-11-29 00:00:00 2023-11-29 00:00:00 OFFICE VISIT NEW PT LEVEL 4 STLMLC STLMLC [id number] [facility] 2023-11-13 00:00:00 2023-11-13 00:00:00 (TEL) STLMLC STLMLC [id number] [facility] 2023-11-07 00:00:00 2023-11-07 00:00:00 OFFICE VISIT ESTAB PT LEVEL 4 STLMLC STLMLC [id number] [facility] 2023-11-06 00:00:00 2023-11-06 00:00:00 (TEL) STLMLC STLMLC [id number] [facility] 2023-09-27 00:00:00 2023-09-27 00:00:00 OFFICE VISIT ESTAB PT LEVEL 4 STLMLC STLMLC [id number] [facility] 2023-06-26 00:00:00 2023-06-26 00:00:00 OFFICE VISIT ESTAB PT LEVEL 4 STLMLC STLMLC [id number] [facility] 2023-06-20 00:00:00 2023-06-20 00:00:00 (TEL) STLMLC STLMLC [id number] [facility] 2023-05-14 00:00:00 2023-05-14 00:00:00 (TEL) STLMLC STLMLC [id number] [facility] 2023-03-28 00:00:00 2023-03-28 00:00:00 OFFICE VISIT ESTAB PT LEVEL 4 STLMLC STLMLC [id number] [facility] 2023-01-28 07:53:00 2023-01-28 11:02:00 Emergency X HÉCTOR VELASQUEZ [facility] ERT [id number] [facility] 2023-01-28 07:53:00 2023-01-28 11:02:00 Emergency Héctor Velasquez [facility] [place] [id number] [facility] 2022-12-20 00:00:00 2022-12-20 00:00:00 OFFICE VISIT ESTAB PT LEVEL 4 STLMLC STLMLC [id number] [facility] 2022-11-09 00:00:00 2022-11-09 00:00:00 (TEL) STLMLC STLMLC [id number] [facility] 2022-09-15 00:00:00 2022-09-15 00:00:00 OFFICE VISIT ESTAB PT LEVEL 4 STLMLC STLMLC [id number] [facility] 2022-07-19 00:00:00 2022-07-19 00:00:00 Telephone Matt Drake [facility] [place] 1..840.114 [id number] [id number] [facility] 2022-07-03 15:47:00 2022-07-03 17:43:00 Emergency X MARGARITO GRAY [facility] ERT [id number] [facility] 2022-07-03 15:47:00 2022-07-03 17:43:00 Emergency Margarito Gray [facility] [place] [id number] [facility] 2022-05-23 00:00:00 2022-05-23 00:00:00 OFFICE VISIT ESTAB PT LEVEL 3 STLMLC STLMLC [id number] [facility] 2022-02-20 00:00:00 2022-02-20 00:00:00 OFFICE VISIT EST PT LEVEL 3 STLMLC STLMLC [id number] [facility] 2021-11-16 00:00:00 2021-11-16 00:00:00 OFFICE VISIT ESTAB PT LEVEL 4 STLMLC STLMLC [id number] [facility] 2021-09-20 00:00:00 2021-09-20 00:00:00 OFFICE VISIT ESTAB PT LEVEL 4 STLMLC STLMLC [id number] [facility] 2021-08-17 00:00:00 2021-08-17 00:00:00 OFFICE VISIT ESTAB PT LEVEL 4 STLMLC STLMLC [id number] [facility] 2021-08-09 00:00:00 2021-08-09 00:00:00 (TEL) STLMLC STLMLC [id number] [facility] 2021-04-20 00:00:00 2021-04-20 00:00:00 OFFICE VISIT ESTAB PT LEVEL 4 STLMLC STLMLC [id number] [facility] 2021-02-22 00:00:00 2021-02-22 00:00:00 OFFICE VISIT ESTAB PT LEVEL 4 STLMLC STLMLC [id number] [facility] 2021-01-20 00:00:00 2021-01-20 00:00:00 OFFICE VISIT ESTAB PT LEVEL 4 STLMLC STLMLC [id number] [facility] 2020-11-04 00:00:00 2020-11-04 00:00:00 Outpatient STLMLC STLMLC [id number] [facility] 2020-11-01 00:00:00 2020-11-01 00:00:00 Outpatient STLMLC STLMLC [id number] [facility] 2020-09-29 00:00:00 2020-09-29 00:00:00 Outpatient STLMLC STLMLC [id number] [facility] 2020-07-27 00:00:00 2020-07-27 00:00:00 Outpatient STLMLC STLMLC [id number] [facility] 2020-04-21 00:00:00 2020-04-21 00:00:00 Outpatient STLMLC STLMLC [id number] [facility] 2020-04-20 00:00:00 2020-04-20 00:00:00 Outpatient STLMLC STLMLC [id number] [facility] 2020-01-28 00:00:00 2020-01-28 00:00:00 Outpatient STLMLC STLMLC [id number] [facility] 2019-10-28 15:00:00 2019-10-28 15:00:[address] [facility] [id number] [facility] 2019-07-29 16:00:00 2019-07-29 16:00:[address] [facility] [id number] [facility] 2019-07-17 14:05:00 2019-07-17 14:05:[address] [facility] [id number] [facility] 2019-05-21 14:39:00 2019-05-21 14:39:[address] [facility] [id number] [facility] 2019-05-20 16:00:00 2019-05-20 16:00:[address] [facility] [id number] [facility] 2018-10-18 13:23:00 2018-10-18 13:23:00 Outpatient [facility] [id number] [facility] 2018-10-18 10:45:00 2018-10-18 10:45:00 Outpatient [facility] [id number] [facility] 2017-10-17 15:00:00 2017-10-17 15:00:00 Outpatient [facility] [id number] [facility] Results Test Description Test Time Test Comments Results Result Co mments Source TSH REFLEX TO FREE [id number] 00:00:00* Test Item Value Reference Range Interpretation Comme nts NUCLEATED RBCS (test code = 63891-8) 0.0 /100 WBC'S See_Comment [Automated message] The system which generated this result transmitted reference range: 0.0 /100 WBC'S. The reference range was not used to interpret this result as normal/abnormal. ABSOLUTE EOSINOPHILS (test code = 41092-8) 0.57 K/UL See_Comment H [Automated message] The system which generated this result transmitted reference range: 0.00-0.50 K/UL. The reference range was not used to interpret this result as normal/abnormal. ABSOLUTE LYMPHOCYTES (test code = 95974-1) 2.79 K/UL See_Comment [Automated message] The system which generated this result transmitted reference range: 1.00-4.00 K/UL. The reference range was not used to interpret this result as normal/abnormal. ABSOLUTE MONOCYTES (test code = 95413-1) 0.72 K/UL See_Comment [Automated message] The system which generated this result transmitted reference range: 0.20-1.00 K/UL. The reference range was not used to interpret this result as normal/abnormal. ABSOLUTE NEUTROPHILS (test code = 92201-7) 4.99 K/UL See_Comment [Automated message] The system which generated this result transmitted reference range: 1.50-7.50 K/UL. The reference range was not used to interpret this result as normal/abnormal. BASOPHILS (test code = 75434-1) 0.4 % EOSINOPHILS (test code = 96693-0) 6.2 % HEMATOCRIT (test code = 44244-2) 42.6 % See_Comment [Automated messa ge] The system which generated this result transmitted reference range: 40.0-51.0 %. The reference range was not used to interpret this result as normal/abnormal. HEMOGLOBIN (test code = 718-7) 13.8 G/DL See_Comment [Automated messa ge] The system which generated this result transmitted reference range: 13.5-17.0 G/DL. The reference range was not used to interpret this result as normal/abnormal. LYMPHOCYTES (test code = 11971-4) 30.5 % MCH (test code = 29304-2) 28.3 PG See_Comment [Automated messa ge] The system which generated this result transmitted reference range: 25.0-33.0 PG. The reference range was not used to interpret this result as normal/abnormal. MCHC (test code = 22802-8) 32.4 G/DL See_Comment [Automated messa ge] The system which generated this result transmitted reference range: 31.0-36.0 G/DL. The reference range was not used to interpret this result as normal/abnormal. MCV (test code = 50567-4) 87.5 fL See_Comment [Automated messa ge] The system which generated this result transmitted reference range: 80.0-99.0 fL. The reference range was not used to interpret this result as normal/abnormal. MONOCYTES (test code = 11967-7) 7.9 % NEUTROPHILS (test code = 98115-0) 54.7 % PLATELET COUNT (test code = 21074-9) 213 K/UL See_Comment [Automated messa ge] The system which generated this result transmitted reference range: 130-400 K/UL. The reference range was not used to interpret this result as normal/abnormal. RBC (test code = 22124-8) 4.87 M/UL See_Comment [Automated messa ge] The system which generated this result transmitted reference range: 4.50-6.10 M/UL. The reference range was not used to interpret this result as normal/abnormal. RDW (test code = 71496-9) 12.8 % See_Comment [Automated messa ge] The system which generated this result transmitted reference range: 11.5-15.0 %. The reference range was not used to interpret this result as normal/abnormal. WBC (test code = 90700-1) 9.1 K/UL See_Comment [Automated messa ge] The system which generated this result transmitted reference range: 3.5-11.0 K/UL. The reference range was not used to interpret this result as normal/abnormal. HEMOGLOBIN A1c (test code = 4548-4) 10.2 % See_Comment H [Automated messa ge] The system which generated this result transmitted reference range: 4.2-5.6 %. The reference range was not used to interpret this result as normal/abnormal. CALC LDL CHOL (test code = 69250-1) 67 MG/DL See_Comment [Automated messa ge] The system which generated this result transmitted reference range: <100 MG/DL. The reference range was not used to interpret this result as normal/abnormal. CHOLESTEROL (test code = 2093-3) 121 MG/DL See_Comment [Automated messa ge] The system which generated this result transmitted reference range: <200 MG/DL. The reference range was not used to interpret this result as normal/abnormal. HDL CHOLESTEROL (test code = 2085-9) 36 MG/DL See_Comment L [Automated messa ge] The system which generated this result transmitted reference range: >39 MG/DL. The reference range was not used to interpret this result as normal/abnormal. RISK RATIO LDL/HDL (test code = 65090-6) 1.86 RATIO See_Comment [Automated message] The system which generated this result transmitted reference range: <3.55 RATIO. The reference range was not used to interpret this result as normal/abnormal. TRIGLYCERIDES (test code = 2571-8) 93 MG/DL See_Comment [Automated messa ge] The system which generated this result transmitted reference range: <150 MG/DL. The reference range was not used to interpret this result as normal/abnormal. ALBUMIN, URINE, RANDOM (test code = 59748-9) 81.9 MG/DL NOT ESTAB MG/DL CALC ALBUMIN/CREAT, RND (test code = 05985-4) 1145 MG/G See_Comment H [Automated messa ge] The system which generated this result transmitted reference range: <30 MG/G. The reference range was not used to interpret this result as normal/abnormal. CREATININE, URINE, CONC. (test code = 2161-8) 71.5 MG/DL NOT ESTAB MG/DL ALBUMIN (test code = 1751-7) 4.1 G/DL See_Comment [Automated messa ge] The system which generated this result transmitted reference range: 3.5-5.2 G/DL. The reference range was not used to interpret this result as normal/abnormal. ALKALINE PHOSPHATASE (test code = 6768-6) 163 U/L See_Comment H [Automated message] The system which generated this result transmitted reference range: 40-121 U/L. The reference range was not used to interpret this result as normal/abnormal. BILIRUBIN, TOTAL (test code = 1975-2) 0.3 MG/DL See_Comment [Automated messa ge] The system which generated this result transmitted reference range: <=1.2 MG/DL. The reference range was not used to interpret this result as normal/abnormal. BUN (test code = 3094-0) 24 MG/DL See_Comment H [Automated messa ge] The system which generated this result transmitted reference range: 6-20 MG/DL. The reference range was not used to interpret this result as normal/abnormal. CALCIUM (test code = 51177-2) 9.8 MG/DL See_Comment [Automated messa ge] The system which generated this result transmitted reference range: 8.5-10.5 MG/DL. The reference range was not used to interpret this result as normal/abnormal. CALC A/G RATIO (test code = 1759-0) 1.5 RATIO See_Comment [Automated [employer]] The system which generated this result transmitted reference range: 1.0-2.6 RATIO. The reference range was not used to interpret this result as normal/abnormal. CALC BUN/CREAT (test code = 3097-3) 19 RATIO See_Comment [Automated messa ge] The system which generated this result transmitted reference range: 6-28 RATIO. The reference range was not used to interpret this result as normal/abnormal. CALC GLOBULIN (test code = 47855-1) 2.7 G/DL See_Comment [Automated [employer]] The system which generated this result transmitted reference range: 1.9-3.7 G/DL. The reference range was not used to interpret this result as normal/abnormal. CARBON DIOXIDE (test code = 1962-8) 32 MEQ/L See_Comment H [Automated messa ge] The system which generated this result transmitted reference range: 19-31 MEQ/L. The reference range was not used to interpret this result as normal/abnormal. CHLORIDE (test code = 5-0) 103 MEQ/L See_Comment [Automated messa ge] The system which generated this result transmitted reference range: 95-107 MEQ/L. The reference range was not used to interpret this result as normal/abnormal. CREATININE (test code = 2160-0) 1.25 MG/DL See_Comment [Automated messa ge] The system which generated this result transmitted reference range: 0.80-1.40 MG/DL. The reference range was not used to interpret this result as normal/abnormal. eGFR (2020 CKD-EPI) (test code = 39089-9) 70 ML/MIN/1.73 See_Comment [Automated message] The system which generated this result transmitted reference range: >60 ML/MIN/1.73. The reference range was not used to interpret this result as normal/abnormal. GLUCOSE (test code = 1558-6) 56 MG/DL See_Comment L [Automated messa ge] The system which generated this result transmitted reference range: 70-99 MG/DL. The reference range was not used to interpret this result as normal/abnormal. POTASSIUM (test code = 2823-3) 4.6 MEQ/L See_Comment [Automated messa ge] The system which generated this result transmitted reference range: 3.5-5.4 MEQ/L. The reference range was not used to interpret this result as normal/abnormal. PROTEIN, TOTAL (test code = 2885-2) 6.8 G/DL See_Comment [Automated messa ge] The system [...] as normal/abnormal. ALT (test code = 1742-6) 17 U/L See_Comment [Automated messa ge] The system which generated this result transmitted reference range: 5-50 U/L. The reference range was not used to interpret this result as normal/abnormal. SODIUM (test code = 2951-2) 144 MEQ/L See_Comment [Automated messa ge] The system which generated this result transmitted reference range: 133-146 MEQ/L. The reference range was not used to interpret this result as normal/abnormal. VITAMIN B-12 (test code = 2132-9) 569 PG/ML See_Comment [Automated messa ge] The system which generated this result transmitted reference range: 200-950 PG/ML. The reference range was not used to interpret this result as normal/abnormal. TSH REFLEX TO FREE T4 (test code = 35262-0) 1.790 UIU/ML See_Comment [Automated message] The system which generated this result transmitted reference range: 0.400-4.100 UIU/ML. The reference range was not used to interpret this result as normal/abnormal. HEMOGLOBIN [id number] 00:00:00* Test Item Value Reference Range Interpretation Comme nts A1C (test code = 4548-4) 9.9 CBC W/AUTO [id number] 00:00:00* Test Item Value Reference Range Interpretation Comme nts NUCLEATED RBCS (test code = 51678-9) 0.0 /100 WBC'S See_Comment [Automated messa ge] The system which generated this result transmitted reference range: 0.0 /100 WBC'S. The reference range was not used to interpret this result as normal/abnormal. ABSOLUTE EOSINOPHILS (test code = 93381-2) 0.27 K/UL See_Comment [Automated messa ge] The system which generated this result transmitted reference range: 0.00-0.50 K/UL. The reference range was not used to interpret this result as normal/abnormal. ABSOLUTE LYMPHOCYTES (test code = 87658-0) 2.01 K/UL See_Comment [Automated messa ge] The system which generated this result transmitted reference range: 1.00-4.00 K/UL. The reference range was not used to interpret this result as normal/abnormal. ABSOLUTE MONOCYTES (test code = 50581-5) 0.61 K/UL See_Comment [Automated messa ge] The system which generated this result transmitted reference range: 0.20-1.00 K/UL. The reference range was not used to interpret this result as normal/abnormal. ABSOLUTE NEUTROPHILS (test code = 97827-8) 5.51 K/UL See_Comment [Automated messa ge] The system which generated this result transmitted reference range: 1.50-7.50 K/UL. The reference range was not used to interpret this result as normal/abnormal. BASOPHILS (test code = 07370-1) 0.6 % EOSINOPHILS (test code = 97481-8) 3.2 % HEMATOCRIT (test code = 39779-2) 43.8 % See_Comment [Automated messa ge] The system which generated this result transmitted reference range: 40.0-51.0 %. The reference range was not used to interpret this result as normal/abnormal. HEMOGLOBIN (test code = 718-7) 14.7 G/DL See_Comment [Automated messa ge] The system which generated this result transmitted reference range: 13.5-17.0 G/DL. The reference range was not used to interpret this result as normal/abnormal. LYMPHOCYTES (test code = 43483-0) 23.7 % MCH (test code = 72611-9) 29.1 PG See_Comment [Automated messa ge] The system which generated this result transmitted reference range: 25.0-33.0 PG. The reference range was not used to interpret this result as normal/abnormal. MCHC (test code = 73732-6) 33.6 G/DL See_Comment [Automated messa ge] The system which generated this result transmitted reference range: 31.0-36.0 G/DL. The reference range was not used to interpret this result as normal/abnormal. MCV (test code = 62322-4) 86.7 fL See_Comment [Automated messa ge] The system which generated this result transmitted reference range: 80.0-99.0 fL. The reference range was not used to interpret this result as normal/abnormal. MONOCYTES (test code = 47292-4) 7.2 % NEUTROPHILS (test code = 58902-7) 64.9 % PLATELET COUNT (test code = 51867-2) 198 K/UL See_Comment [Automated messa ge] The system which generated this result transmitted reference range: 130-400 K/UL. The reference range was not used to interpret this result as normal/abnormal. RBC (test code = 96215-9) 5.05 M/UL See_Comment [Automated messa ge] The system which generated this result transmitted reference range: 4.50-6.10 M/UL. The reference range was not used to interpret this result as normal/abnormal. RDW (test code = 57460-3) 12.2 % See_Comment [Automated messa ge] The system which generated this result transmitted reference range: 11.5-15.0 %. The reference range was not used to interpret this result as normal/abnormal. WBC (test code = 87357-6) 8.5 K/UL See_Comment [Automated messa ge] The system which generated this result transmitted reference range: 3.5-11.0 K/UL. The reference range was not used to interpret this result as normal/abnormal. CBC W/AUTO [id number] 00:00:00* Test Item Value Reference Range Interpretation Comme nts NUCLEATED RBCS (test code = 53639-4) 0.0 /100 WBC'S See_Comment [Automated messa ge] The system which generated this result transmitted reference range: 0.0 /100 WBC'S. The reference range was not used to interpret this result as normal/abnormal. ABSOLUTE EOSINOPHILS (test code = 24117-4) 0.25 K/UL See_Comment [Automated messa ge] The system which generated this result transmitted reference range: 0.00-0.50 K/UL. The reference range was not used to interpret this result as normal/abnormal. ABSOLUTE LYMPHOCYTES (test code = 38513-1) 1.78 K/UL See_Comment [Automated messa ge] The system which generated this result transmitted reference range: 1.00-4.00 K/UL. The reference range was not used to interpret this result as normal/abnormal. ABSOLUTE MONOCYTES (test code = 35887-4) 0.51 K/UL See_Comment [Automated messa ge] The system which generated this result transmitted reference range: 0.20-1.00 K/UL. The reference range was not used to interpret this result as normal/abnormal. ABSOLUTE NEUTROPHILS (test code = 84562-0) 4.15 K/UL See_Comment [Automated messa ge] The system which generated this result transmitted reference range: 1.50-7.50 K/UL. The reference range was not used to interpret this result as normal/abnormal. BASOPHILS (test code = 13377-7) 0.4 % EOSINOPHILS (test code = 92340-9) 3.7 % HEMATOCRIT (test code = 60438-2) 42.8 % See_Comment [Automated messa ge] The [...] result as normal/abnormal. LYMPHOCYTES (test code = 97356-3) 26.3 % MCH (test code = 94704-2) 29.6 PG See_Comment [Automated messa ge] The system which generated this result transmitted reference range: 25.0-33.0 PG. The reference range was not used to interpret this result as normal/abnormal. MCHC (test code = 18740-6) 33.6 G/DL See_Comment [Automated messa ge] The system which generated this result transmitted reference range: 31.0-36.0 G/DL. The reference range was not used to interpret this result as normal/abnormal. MCV (test code = 78818-3) 87.9 fL See_Comment [Automated messa ge] The system which generated this result transmitted reference range: 80.0-99.0 fL. The reference range was not used to interpret this result as normal/abnormal. MONOCYTES (test code = 89385-9) 7.5 % NEUTROPHILS (test code = 01663-2) 61.5 % PLATELET COUNT (test code = 58416-9) 187 K/UL See_Comment [Automated messa ge] The system which generated this result transmitted reference range: 130-400 K/UL. The reference range was not used to interpret this result as normal/abnormal. RBC (test code = 38541-0) 4.87 M/UL See_Comment [Automated messa ge] The system which generated this result transmitted reference range: 4.50-6.10 M/UL. The reference range was not used to interpret this result as normal/abnormal. RDW (test code = 41270-6) 12.5 % See_Comment [Automated messa ge] The system which generated this result transmitted reference range: 11.5-15.0 %. The reference range was not used to interpret this result as normal/abnormal. WBC (test code = 52437-6) 6.8 K/UL See_Comment [Automated messa ge] The system which generated this result transmitted reference range: 3.5-11.0 K/UL. The reference range was not used to interpret this result as normal/abnormal. CBC W/AUTO [id number] 00:00:00* Test Item Value Reference Range Interpretation Comme nts NUCLEATED RBCS (test code = 80410-7) 0.0 /100 WBC'S See_Comment [Automated messa ge] The system which generated this result transmitted reference range: 0.0 /100 WBC'S. The reference range was not used to interpret this result as normal/abnormal. ABSOLUTE EOSINOPHILS (test code = 74427-3) 0.28 K/UL See_Comment [Automated messa ge] The system which generated this result transmitted reference range: 0.00-0.50 K/UL. The reference range was not used to interpret this result as normal/abnormal. ABSOLUTE LYMPHOCYTES (test code = 09102-0) 2.17 K/UL See_Comment [Automated messa ge] The system which generated this result transmitted reference range: 1.00-4.00 K/UL. The reference range was not used to interpret this result as normal/abnormal. ABSOLUTE MONOCYTES (test code = 72132-9) 0.53 K/UL See_Comment [Automated messa ge] The system which generated this result transmitted reference range: 0.20-1.00 K/UL. The reference range was not used to interpret this result as normal/abnormal. ABSOLUTE NEUTROPHILS (test code = 14944-7) 4.68 K/UL See_Comment [Automated messa ge] The system which generated this result transmitted reference range: 1.50-7.50 K/UL. The reference range was not used to interpret this result as normal/abnormal. BASOPHILS (test code = 68574-9) 0.6 % EOSINOPHILS (test code = 16404-8) 3.6 % HEMATOCRIT (test code = 60057-0) 48.9 % See_Comment [Automated messa ge] The [...] result as normal/abnormal. LYMPHOCYTES (test code = 81314-8) 28.1 % MCH (test code = 89190-8) 28.9 PG See_Comment [Automated messa ge] The system which generated this result transmitted reference range: 25.0-33.0 PG. The reference range was not used to interpret this result as normal/abnormal. MCHC (test code = 04099-2) 32.7 G/DL See_Comment [Automated messa ge] The system which generated this result transmitted reference range: 31.0-36.0 G/DL. The reference range was not used to interpret this result as normal/abnormal. MCV (test code = 30756-8) 88.4 fL See_Comment [Automated messa ge] The system which generated this result transmitted reference range: 80.0-99.0 fL. The reference range was not used to interpret this result as normal/abnormal. MONOCYTES (test code = 78516-7) 6.9 % NEUTROPHILS (test code = 63325-8) 60.7 % PLATELET COUNT (test code = 08053-2) 190 K/UL See_Comment [Automated messa ge] The system which generated this result transmitted reference range: 130-400 K/UL. The reference range was not used to interpret this result as normal/abnormal. RBC (test code = 06702-9) 5.53 M/UL See_Comment [Automated messa ge] The system which generated this result transmitted reference range: 4.50-6.10 M/UL. The reference range was not used to interpret this result as normal/abnormal. RDW (test code = 21731-3) 12.1 % See_Comment [Automated messa ge] The system which generated this result transmitted reference range: 11.5-15.0 %. The reference range was not used to interpret this result as normal/abnormal. WBC (test code = 01073-6) 7.7 K/UL See_Comment [Automated [employer]] The system which generated this result transmitted reference range: 3.5-11.0 K/UL. The reference range was not used to interpret this result as normal/abnormal. HEMOGLOBIN [id number] 00:00:00* Test Item Value Reference Range Interpretation Comme nts A1C (test code = 4548-4) 11.2 HEMOGLOBIN [id number] 00:00:00* Test Item Value Reference Range Interpretation Comme nts A1C (test code = 4548-4) 10.9
--- NOTE | 2024-05-08 16:26 | RAD REPORT ---
EXAMINATION: US Extrem Venous W Compress Carlos CLINICAL INDICATION: [facility] MAIN SWELLING Bed:IW8 Y TECHNIQUE: Complete bilateral duplex sonography of the BILATERAL lower extremity veins was performed. The examination included compression for vein patency, color Doppler imaging and flow augmentation in response to distal compression of the distal external iliac, common femoral, femoral, popliteal, t ibial, and great and small saphenous veins. COMPARISON: No prior exam. FINDINGS: Duplex sonography testing of the veins of the BILATERAL lower extremity was performed. Color flow nehemias ging shows all veins to be compressible with [id number] color filling. Pulsatile and phasic flow is present within all lower extremity deep and superficial veins examined. IMPRESSION: There is no deep vein or superficial vein thrombosis.
--- NOTE | 2024-05-08 16:56 | RAD REPORT ---
EXAMINATION: US Lower Extremity Arterial Bilat CLINICAL INDICATION: Male, 54 years old. [facility] MAIN SWELLING Bed:IW8 TECHNIQUE: Arterial duplex ultrasound of the bilateral lower extremities, with real-time, duplex, and spectral flow Doppler evaluation. COMPARISON: No prior exam. FINDINGS: Brachial artery systolic pressure is symmetric bilaterally. Grayscale: Grayscale: Mild plaque. Right lower extremity: [employer] through popliteal arteries are patent, with triphasic waveforms. Monophasic waveforms seen al bambi the right posterior tibial and dorsalis pedis arteries. Left lower extremity: The [employer] through dorsalis pedis arteries are patent, with triphasic waveforms. IMPRESSION: Mild peripheral vascular disease along the distal right lower extremity. No abnormalities on the left .
--- NOTE | 2024-05-08 17:36 | RAD REPORT ---
EXAMINATION: ONE VIEW CHEST XR CLINICAL INDICATION: Male, 54 years old.,SWELLING TECHNIQUE: Frontal chest projection is submitted. Examination is limited by patient positioning and t echnique. COMPARISON: 05/23/2021 FINDINGS: The lungs are grossly clear although suboptimal inspiratory effort somewhat limits evaluation. No pn eumothorax or sizable effusion. The heart is normal in size. Mediastinal contours are unremarkable. IMPRESSION: No acute intrathoracic abnormalities.
--- NOTE | 2024-05-08 17:36 | RAD REPORT ---
EXAMINATION: XR Foot Right 3 View CLINICAL INDICATION: Male, 54 years old. [facility] MAIN PAIN Bed:8 TECHNIQUE: 3 view radiographs of the right foot were obtained. COMPARISON: 08/25/2018 FINDINGS: No evidence of fracture or dislocation. Normal alignment. No evidence of arthropathy or oth er focal bone lesion. Diffuse soft tissue swelling about the dorsum of the foot. Soft tissue irregularity along the sole of the forefoot as well. Moderate calcaneal spur. No significant degenera tive changes. IMPRESSION: No acute osseous abnormalities. Soft tissue abnormalities as above.
--- NOTE | 2024-05-08 20:51 | ER ---
Nurse's Notes [facility] Name: Guille Dunham Age: 54 yrs Sex: Male : 1970 Arrival Date: 05/08/2024 Time: 14:54 Bed IW1 Private MD: Diagnosis: Presentation: 05/08 15:12 Chief complaint: Patient states: he had a sore on the bottom of his right foot that me1 started 4 days ago and has worsened and turned into a hole with some foul smelling drainage. Coronavirus screen: Vaccine status: Patient reports being unvaccinated. Ebola Screen: No symptoms or risks identified at this time. Initial Sepsis Screen: Does the patient meet any 2 criteria? No. Patient's initial sepsis screen is negative. Does the patient have a suspected source of infection?. Risk Assessment: Do you want to hurt yourself or someone else? Patient reports no desire to harm self or others. Onset of symptoms was May 04, 2024. 15:12 Method Of Arrival: Ambulatory me1 15:12 Acuity: JANICE 3 me1 Historical: - Allergies: 15:15 NKDA; me1 - PMHx: 15:15 Diabetes - IDDM; Hyperlipidemia; Hypertension; me1 - PSHx: 15:15 Operative procedure on knee; me1 - Immunization history:: Adult Immunizations up to date. - Infectious Disease History:: Denies. - Social history:: Smoking status: Patient denies any tobacco usage or history of. Vital Signs: 15:12 BP 165 / 105; Pulse 81; Resp 16; Temp 98.9; Pulse Ox 98% ; Weight 129.27 kg; Height 5 me1 ft. 9 in. ; Pain 8/10; 15:12 Body Mass Index 42.09 (129.27 kg, 175.26 cm) me1 15:12 Pain Scale: Adult me1 ED Course: 14:59 Patient arrived in ED. al6 15:11 Remy Lazo PA is PHCP. cp 15:11 Remy Valdez MD is Attending Physician. cp 15:15 Triage completed. me1 15:15 Arm band placed on Patient placed in waiting room. me1 15:58 US Extremity Venous W Compression Carlos In Process Unspecified. EDMS 15:58 Lower Extremity Arterial Bilat US In Process Unspecified. EDMS 16:30 XRAY Foot RIGHT 3 View In Process Unspecified. EDMS 16:31 Chest Single View XRAY In Process Unspecified. EDMS Administered Medications: No medications were administered Outcome: 20:52 Patient left the ED. br2 Signatures: Dispatcher [employer] EDMS Remy Lazo PA PA cp Eddleman, Michelle, RN RN me1 Genet Askew RN RN br2 Neli Laureano6 Corrections: (The following items were deleted from the chart) 15:16 15:12 BP 182 / 108; Pulse 81bpm; Resp 16bpm; Pulse Ox 98%; Temp 98.9F; 129.27 kg; me1 Height 5 ft. 9 in.; BMI: 42.0; Pain 8/10, Adult; me1
--- NOTE | 2024-05-08 20:51 | EDPHYS ---
Physician Documentation [facility] Name: Guille Dunham Age: 54 yrs Sex: Male : 1970 Arrival Date: 05/08/2024 Time: 14:54 Bed IW1 Private MD: ED Physician Remy Valdez HPI: 05/08 15:20 This 54 yrs old Male presents to ER via Ambulatory with complaints of foot cp sore. 15:20 The patient presents with pain, that is acute, open wound. The complaints affect the cp right foot. 15:20 Context: resulted from an unknown cause, the patient can fully bear weight. Onset: The cp symptoms/episode began/occurred 4 day(s) ago. Associated signs and symptoms: Pertinent positives: foul smelling drainage. 15:20 Severity of symptoms: in the emergency department the symptoms are unchanged, despite cp home interventions. Historical: - Allergies: 15:15 NKDA; me1 - PMHx: 15:15 Diabetes - IDDM; Hyperlipidemia; Hypertension; me1 - PSHx: 15:15 Operative procedure on knee; me1 - Immunization history:: Adult Immunizations up to date. - Infectious Disease History:: Denies. - Social history:: Smoking status: Patient denies any tobacco usage or history of. ROS: 15:20 Constitutional: Negative for body aches, chills, fever, poor PO intake, cp 15:20 Eyes: Negative for injury, pain, redness, and discharge, cp 15:20 Cardiovascular: Negative for chest pain, 15:20 Respiratory: Negative for cough, shortness of breath, wheezing, 15:20 Abdomen/GI: Negative for abdominal pain, vomiting, diarrhea, constipation, 15:20 MS/extremity: Positive for pain, swelling, tenderness, of the right foot, open wound noted to bottom of right foot, 15:20 Neuro: Negative for altered mental status, dizziness, headache, weakness, 15:20 All other systems are negative, Exam: 15:25 Head/Face: Normocephalic, atraumatic. cp 15:25 Constitutional: The patient appears in no acute distress, alert, awake, non-diaphoretic, non-toxic, well developed, well nourished, obese, 15:25 Eyes: Periorbital structures: appear normal, Conjunctiva: normal, no exudate, no injection, Sclera: no appreciated abnormality, Lids and lashes: appear normal, 15:25 ENT: External ear(s): are unremarkable, Nose: is normal, Mouth: Lips: moist, Oral mucosa: moist, Posterior pharynx: Airway: no evidence of obstruction, patent, 15:25 Chest/axilla: Inspection: normal, 15:25 Cardiovascular: Rate: normal, Rhythm: regular, Edema: ankle edema, that is mild, JVD: is not appreciated, 15:25 Respiratory: the patient does not display signs of respiratory distress, Respirations: normal, no use of accessory muscles, no retractions, labored breathing, is not present, Breath sounds: are clear throughout, no decreased breath sounds, no stridor, no wheezing, 15:25 Abdomen/GI: Inspection: obese 15:25 Musculoskeletal/extremity: Extremities: noted in the right foot: erythema, swelling, open wound noted plantar side proximal to right great toe, no drainage expressed, Vital Signs: 15:12 BP 165 / 105; Pulse 81; Resp 16; Temp 98.9; Pulse Ox 98% ; Weight 129.27 kg; Height 5 me1 ft. 9 in. ; Pain 8/10; 15:12 Body Mass Index 42.09 (129.27 kg, 175.26 cm) me1 15:12 Pain Scale: Adult me1 MDM: 15:21 Medical Screening Exam initiated cp 05/08 15:17 Order name: XRAY Foot RIGHT 3 View; Complete Time: 18:11 05/08 18:12 Interpretation: Report reviewed. 05/08 15:17 Order name: US Extremity Venous W Compression Carlos; Complete Time: 18:11 05/08 15:17 Order name: Lower Extremity Arterial Bilat US; Complete Time: 18:11 05/08 15:17 Order name: Chest Single View XRAY; Complete Time: 18:11 05/08 15:17 Order name: Accucheck 05/08 15:17 Order name: Cardiac monitoring 05/08 15:17 Order name: EKG - Nurse/Tech 05/08 15:17 Order name: IV Saline Lock - Large Bore 05/08 15:17 Order name: Labs collected and sent 05/08 15:17 Order name: O2 Per Protocol 05/08 15:17 Order name: O2 Sat Monitoring 05/08 15:17 Order name: Vital Signs cp Administered Medications: No medications were administered Disposition Summary: 05/08/24 20:51 Eloped Notes: Disposition: before being seen by provider br2 Reason: unknown br2 Addendum: 05/09/2024 23:25 Co-signature as Attending Physician, Remy Valdez MD I agree with the assessment and c singh plan of care. Signatures: Dispatcher [employer] [facility] Remy Valdez MD MD cha Page, Corey, PA PA cp Gertrudis Lombardo RN RN me1 Genet Askew RN RN br2 Corrections: (The following items were deleted from the chart) 05/08 15:17 15:17 Chest Single View+RAD.RAD.BRZ ordered. [facility] 05/09 15:19 05/08 14:25 Constitutional: The patient appears in no acute distress, alert, awake, cp non-diaphoretic, non-toxic, well developed, well nourished, obese, cp 05/09 14:05/08 14:25 Head/Face: Normocephalic, atraumatic. cp 05/09 15:05/08 14:25 Eyes: Periorbital structures: appear normal, Conjunctiva: normal, no cp exudate, no injection, Sclera: no appreciated abnormality, Lids and lashes: appear normal, cp 05/09 14:05/08 14:25 ENT: External ear(s): are unremarkable, Nose: is normal, Mouth: Lips: cp moist, Oral mucosa: moist, Posterior pharynx: Airway: no evidence of obstruction, patent, cp 05/09 14:05/08 14:25 Chest/axilla: Inspection: normal, cp 05/09 14:05/08 14:25 Cardiovascular: Rate: normal, Rhythm: regular, Edema: ankle edema, that is cp mild, JVD: is not appreciated, cp 05/09 14:05/08 14:25 Respiratory: the patient does not display signs of respiratory distress, cp Respirations: normal, no use of accessory muscles, no retractions, labored breathing, is not present, Breath sounds: are clear throughout, no decreased breath sounds, no stridor, no wheezing, cp 05/09 14:05/08 14:25 Abdomen/GI: Inspection: obese cp cp 05/09 15:19 05/08 14:25 Musculoskeletal/extremity: Extremities: noted in the right foot: erythema, cp swelling, open wound noted plantar side proximal to right great toe, no drainage expressed, cp
[2024-05-08 21:05] VITALS: BP 165/105; TEMP 98.9; O2SAT 98
== END 2024-05-08 20:52 | disposition left against medical advice (07) ==
LOC: ER 14:54
DX: Z53.21 Procedure and treatment not carried out due to patient leaving prior to being seen by health care provider (principal)
CPT/HCPCS: 71045; 93925; 93970; 99281

== ENCOUNTER 2024-08-16 14:47 | Emergency (ER) | payer BC ==
--- OUTSIDE RECORDS SUMMARY | 2024-08-16 14:51 | XMS REPORT | Continuity of Care Document ---
Author Name Unknown Address [address] [facility] [address] [place] [address] Organization [facility] [place] Address [address] [facility]. [address] [place] [address] Care Team Providers Care Rn Birthing Name Role Phone KURT FLORIAN Primary Care Physician Unavailab Ankita Owen Attending Clinician Unavail able Kurt Florian Attending Clinician Unavailable HÉCTOR SANTOYO Attending Clinician Unavailable Héctor Santoyo MD Attending Clinician [phone] Matt Drake MD Attending Clinician + MARGARITO GRAY Attending Clinician Unavailable Margarito Gray MD Attending Clinician [phone] HÉCTOR SANTOYO Admitting Clinician Unavailable MARGARITO GRAY Admitting Clinician Unavailable Payers Payer Name Policy Type Policy Number Effective Date Expiration Date Source [id number] 6 [id number] 2024 00:00:00 [facility] [employer] 53 [id number] 2018 00:00:00 [facility] COMMERCIAL NON-CONTRACT GENERIC [id number] 2019 00:00:00 Problems Condition Name Condition Details Condition Category Status Onset Date Resolution Date Last Treatment Date Treating Clinician Comments Source [id number] Long-term insulin use Problem [facility] Mixed hyperlipid emia Mixed hyperlipid emia Problem [facility] [id number] Type 2 diabetes mellitus with hyperglyce alessandra, unspecifie d whether lap checker insulin use Problem [facility] Diabetic polyneurop athy Diabetic polyneurop athy associated with other specified diabetes mellitus Problem [facility] [id number] Allergic rhinitis, unspecifie d seasonalit y, unspecifie d trigger Problem [facility] Type II diabetes mellitus without complicati on Controlled type 2 diabetes mellitus without complicati on, unspecifie d shelter insulin use status Problem [facility] Benign essential hypertensi on Benign essential hypertensi on Problem [facility] Nonprolife rative retinopath y due to type 2 diabetes mellitus (disorder) Nonprolife rative diabetic retinopath y associated with type 2 diabetes mellitus Problem [facility] [id number] Panic attacks Problem [facility] [id number] Polyneurop athy Problem [facility] [id number] Current severe episode of major depressive disorder without psychotic features without prior episode Problem [facility] [id number] Hearing loss of left ear, unspecifie d hearing loss type Problem [facility] [id number] GUERITA (generaliz ed anxiety disorder) Problem [facility] [id number] VICKIE (obstructi ve sleep apnea) Problem [facility] [id number] Ulcer of right foot, unspecifie d ulcer stage Problem [facility] Morbid obesity (disorder) Morbid (severe) obesity due to excess calories Problem [facility] [id number] Obesity, morbid, BMI 40.0-49.9 Problem [facility] Allergies, Adverse Reactions, Alerts Allergy Name Allergy Type Status Severity Reaction(s) Onset Date Inactive Date Treating Clinician Comments Source NO KNOWN ALLERGIE S Drug Class Active [facility] Social History Social Habit Start Date Stop Date Quantity Comments Source Sexual orientation U [facility] History of Tobacco Use [facility] Sex Assigned At 1970 00:00:00 1970 00:00:00 [facility] Smoking Status Start Date Stop Date Source Tobacco smoking consumption unknown [facility] Never Smoker [facility] Medications Ordered Medication Name Filled Medication Name Start Date Stop Date Current Medication? Ordering Clinician Indication Dosage Frequency Signature (SIG) Comments Components Source Ozempic (0.25 or 0.5 MG/DOSE) 2 MG/3ML Ozempic (0.25 or 0.5 MG/DOSE) 2 MG/3ML 07-09 00:00: 00 No Ozempic (0.25 or 0.5 MG/DOSE) 2 MG/3ML Pen Corinne 32G X 5 MM Pen Corinne 32G X 5 MM 07-09 00:00: 00 No Pen Corinne 32G X 5 MM Lantus SoloStar 100 UNIT/ML Lantus SoloStar 100 UNIT/ML 3- 00:00: 00 No QD Lantus SoloStar 100 UNIT/ML NovoLOG FlexPen 100 UNIT/ML NovoLOG FlexPen 100 UNIT/ML 06-06 00:00: 00 No NovoLOG FlexPen 100 UNIT/ML buPROPion HCl 75 MG buPROPion HCl 75 MG 3- 00:00: 00 No 2{table ts} BID buPROPion HCl 75 MG Klor-Con 20 MEQ Klor-Con 20 MEQ 2023-04 00:00: 00 No 1{packe t_with_ food} QD Klor-Con 20 MEQ Magnesium Oxide 400 MG Magnesium Oxide 400 MG 2023-04 00:00: 00 No 1{table t_as_ne eded} QD Magnesium Oxide 400 MG Furosemide 20 MG Furosemide 20 MG 11-28 00:00: 00 No 1{table t} BID Furosemide 20 MG ALPRAZolam 0.5 MG ALPRAZolam 0.5 MG 11-28 00:00: 00 No 1{table t} QD ALPRAZolam 0.5 MG triamcinolo ne acetonide (KENALOG) injection 30 mg 07-03 22:45: 00 07-03 22:20 :00 No 30mg 30 mg, Infiltrati on, ONCE, 1 dose, On Sun07/03/22 at 1745, Routine [facility] lidocaine 2% (XYLOCAINE) 20 mg/mL (2 %) injection 10 mL 07-03 22:00: 00 07-03 22:20 :00 No 10mL 10 mL, Infiltrati on, ONCE, 1 dose, On Sun07/03/22 at 1700, [facility] ketorolac (TORADOL) injection 60 mg 07-03 21:45: 00 07-03 21:19 :00 No 60mg 60 mg, Intramuscu lar, ONCE NOW, 1 dose, On Sun07/03/22 at 1645, [facility] gabapentin (NEURONTIN) capsule 300 mg 07-03 21:00: 00 07-03 21:00 :00 No 300mg 300 mg, Oral, ONCE, 1 dose, On Sun07/03/22 at 1600, [facility] HYDROcodone -acetaminop hen (NORCO 5) 5-325 mg tablet 2 tablet 07-03 21:00: 00 07-03 21:19 :00 No 2{tbl} 2 tablet, Oral, ONCE, 1 dose, On Sun07/03/22 at 1600, [facility] ketorolac 10 mg tablet 07-03 00:00: 00 Yes [id number] 10mg Take 1 tablet by mouth every 6 (six) hours as needed for Pain (scale 4-6) or Pain (scale 7-10). [facility] acetaminoph en (TYLENOL ARTHRITIS PAIN) 650 mg CR tablet 07-03 00:00: 00 Yes [id number] 650mg Take 1 tablet by mouth every 8 (eight) hours as needed for Pain. [facility] gabapentin (NEURONTIN) 100 mg capsule 2023-0 4-03 00:00: 00 Yes [id number] 100mg Take 1 capsule by mouth in the morning and 1 capsule at noon and 1 capsule in the evening. [facility] hydroCHLORO thiazide 12.5 MG hydroCHLORO thiazide 12.5 MG 11-16 00:00: 00 No 1{capsu le_in_t he_morn ing} [...] QD Aspirin Adult Low Strength 81 MG Lisinopril 40 MG Lisinopril 40 MG No 1{table t} QD Lisinopril 40 MG Gabapentin 600 MG Gabapentin 600 MG No 1{capsu le} TID Gabapentin 600 MG Tumersaid Tumersaid No Tumersaid FLUoxetine HCl 10 MG FLUoxetine HCl 10 MG No 1{table t} QD FLUoxetine HCl 10 MG Jardiance 25 MG Jardiance 25 MG No 1{table t} QD Jardiance 25 MG Atorvastati n Calcium 20 MG Atorvastati n Calcium 20 MG No Atorvastat in Calcium 20 MG Lipitor 20 MG Lipitor 20 MG No 1{table t} QD Lipitor 20 MG Immunizations Ordered Immunization Name Filled Immunization Name Date Status Comments Source Adacel (Tdap) Adacel (Tdap) 2021-01-20 15:17:00 Completed [facility] Adacel (Tdap) Adacel (Tdap) 2021-01-20 15:17:00 Completed [facility] Adacel (Tdap) Adacel (Tdap) Unknown Completed [facility] Adacel (Tdap) Adacel (Tdap) Unknown Completed [facility] Adacel (Tdap) Adacel (Tdap) Unknown Completed Co [facility] Adacel (Tdap) Adacel (Tdap) Unknown Completed Co [facility] Adacel (Tdap) Adacel (Tdap) Unknown Completed Co on [facility] Adacel (Tdap) Adacel (Tdap) Unknown Completed Co on [facility] Adacel (Tdap) Adacel (Tdap) Unknown Completed Co on [facility] Adacel (Tdap) Adacel (Tdap) Unknown Completed Co on [facility] Adacel (Tdap) Adacel (Tdap) Unknown Completed [facility] Vital Signs Vital Name Observation Time Observation Value Comments S derrickce height 2024-07-09 08:15:00 69 [in_i] Commo n [facility] weight 2024-07-09 08:15:00 276.6 [lb_av] Co [facility] temperature 2024-07-09 08:15:00 98.3 [degF] Com [facility] bmi 2024-07-09 08:15:00 40.84 kg/m2 Comm on [facility] oximetry 2024-07-09 08:15:00 96 % Commo n [facility] respiratory rate 2024-07-09 08:15:00 16 /min [facility] blood pressure systolic 2024-07-09 08:15:00 138 mm[Hg] [facility] blood pressure diastolic 2024-07-09 08:15:00 74 mm[Hg] Common [facility] height 2024-06-06 10:30:00 69 [in_i] Commo n [facility] weight 2024-06-06 10:30:00 275 [lb_av] Comm on [facility] temperature 2024-06-06 10:30:00 97.5 [degF] Com [facility] bmi 2024-06-06 10:30:00 40.61 kg/m2 Comm on [facility] oximetry 2024-06-06 10:30:00 97 % Commo n [facility] blood pressure systolic 2024-06-06 10:30:00 140 mm[Hg] [facility] blood pressure diastolic 2024-06-06 10:30:00 80 mm[Hg] [facility] height 2024-06-06 10:30:00 69 [in_i] Commo n [facility] weight 2024-06-06 10:30:00 275 [lb_av] Comm on [facility] temperature 2024-06-06 10:30:00 97.5 [degF] Com mon [facility] bmi 2024-06-06 10:30:00 40.61 kg/m2 Comm on [facility] oximetry 2024-06-06 10:30:00 97 % Commo n [facility] blood pressure systolic 2024-06-06 10:30:00 140 mm[Hg] [facility] blood pressure diastolic 2024-06-06 10:30:00 80 mm[Hg] [facility] height 2024-05-09 10:30:00 69 [in_i] Commo n [facility] weight 2024-05-09 10:30:00 286.2 [lb_av] Co [facility] temperature 2024-05-09 10:30:00 98.2 [degF] Com mon [facility] bmi 2024-05-09 10:30:00 42.26 kg/m2 Comm on [facility] oximetry 2024-05-09 10:30:00 96 % Commo n [facility] respiratory rate 2024-05-09 10:30:00 16 /min [facility] blood pressure systolic 2024-05-09 10:30:00 138 mm[Hg] [facility] blood pressure diastolic 2024-05-09 10:30:00 86 mm[Hg] Common [facility] height 2024-02-08 10:30:00 69 [in_i] Commo n [facility] weight 2024-02-08 10:30:00 332.0 [lb_av] Co [facility] temperature 2024-02-08 10:30:00 97.6 [degF] Com [facility] bmi 2024-02-08 10:30:00 49.02 kg/m2 Comm on [facility] oximetry 2024-02-08 10:30:00 95 % Commo n [facility] respiratory rate 2024-02-08 10:30:00 16 /min Common [facility] blood pressure systolic 2024-02-08 10:30:00 140 mm[Hg] Common [facility] blood pressure diastolic 2024-02-08 10:30:00 85 mm[Hg] Common [facility] height 2023-12-31 08:20:00 69 [in_i] Commo n [facility] weight 2023-12-31 08:20:00 313 [lb_av] Comm on [facility] temperature 2023-12-31 08:20:00 98.3 [degF] Com [facility] bmi 2023-12-31 08:20:00 46.22 kg/m2 Comm on [facility] oximetry 2023-12-31 08:20:00 96 % Commo n [facility] respiratory rate 2023-12-31 08:20:00 18 /min Common [facility] blood pressure systolic 2023-12-31 08:20:00 139 mm[Hg] Common [facility] blood pressure diastolic 2023-12-31 08:20:00 84 mm[Hg] Common [facility] height 2023-11-29 08:30:00 69 [in_i] Commo n [facility] weight 2023-11-29 08:30:00 313 [lb_av] Comm on [facility] temperature 2023-11-29 08:30:00 97.7 [degF] Com [facility] bmi 2023-11-29 08:30:00 46.22 kg/m2 Comm on [facility] oximetry 2023-11-29 08:30:00 98 % Commo n [facility] blood pressure systolic 2023-11-29 08:30:00 148 mm[Hg] [facility] blood pressure diastolic 2023-11-29 08:30:00 88 mm[Hg] [facility] height 2023-11-07 09:20:00 69 [in_i] Commo n [facility] weight 2023-11-07 09:20:00 303.4 [lb_av] Co on [facility] temperature 2023-11-07 09:20:00 98.1 [degF] Com [facility] bmi 2023-11-07 09:20:00 44.8 kg/m2 Commo n [facility] oximetry 2023-11-07 09:20:00 95 % Commo n [facility] respiratory rate 2023-11-07 09:20:00 18 /min [facility] blood pressure systolic 2023-11-07 09:20:00 147 mm[Hg] [facility] blood pressure diastolic 2023-11-07 09:20:00 90 mm[Hg] [facility] height 2023-09-27 08:40:00 69 [in_i] Commo n [facility] weight 2023-09-27 08:40:00 293.4 [lb_av] Co [facility] temperature 2023-09-27 08:40:00 97.7 [degF] Com [facility] bmi 2023-09-27 08:40:00 43.32 kg/m2 Comm on [facility] oximetry 2023-09-27 08:40:00 97 % Commo n [facility] blood pressure systolic 2023-09-27 08:40:00 148 mm[Hg] Common [facility] blood pressure diastolic 2023-09-27 08:40:00 78 mm[Hg] Common [facility] height 2023-06-26 08:00:00 69 [in_i] Commo n [facility] weight 2023-06-26 08:00:00 296 [lb_av] Comm on [facility] bmi 2023-06-26 08:00:00 43.71 kg/m2 Comm on [facility] blood pressure systolic 2023-06-26 08:00:00 127 mm[Hg] Common [facility] blood pressure diastolic 2023-06-26 08:00:00 80 mm[Hg] Common [facility] height 2023-03-28 16:00:00 69 [in_i] Commo n [facility] weight 2023-03-28 16:00:00 290 [lb_av] Comm on [facility] bmi 2023-03-28 16:00:00 42.82 kg/m2 Comm on [facility] blood pressure systolic 2023-03-28 16:00:00 135 mm[Hg] [facility] blood pressure diastolic 2023-03-28 16:00:00 73 mm[Hg] [facility] Systolic blood pressure 2023-01-28 16:00:00 175 mm[Hg] [facility] Diastolic blood pressure 2023-01-28 16:00:00 100 mm[Hg] [facility] Heart rate 2023-01-28 16:00:00 72 /[facility] Body temperature 2023-01-28 16:00:00 36.78 Edie [facility] Respiratory rate 2023-01-28 16:00:00 16 /min [facility] Oxygen saturation in Arterial blood by Pulse oximetry 2023-01-28 16:00:00 98 /min [facility] Body height 2023-01-28 12:49:00 175.3 cm [facility] Body weight 2023-01-28 12:49:00 134.582 kg [facility] BMI 2023-01-28 12:49:00 43.81 kg/m2 [facility] height 2022-12-20 13:00:00 69 [in_i] Commo n [facility] weight 2022-12-20 13:00:00 290 [lb_av] Comm on [facility] bmi 2022-12-20 13:00:00 42.82 kg/m2 Comm on [facility] blood pressure systolic 2022-12-20 13:00:00 132 mm[Hg] [facility] blood pressure diastolic 2022-12-20 13:00:00 70 mm[Hg] [facility] height 2022-09-15 11:00:00 69 [in_i] Commo n [facility] weight 2022-09-15 11:00:00 293.4 [lb_av] Co [facility] temperature 2022-09-15 11:00:00 98.1 [degF] Com mon [facility] bmi 2022-09-15 11:00:00 43.32 kg/m2 Comm on [facility] oximetry 2022-09-15 11:00:00 99 % Commo n [facility] respiratory rate 2022-09-15 11:00:00 18 /min [facility] blood pressure systolic 2022-09-15 11:00:00 138 mm[Hg] [facility] blood pressure diastolic 2022-09-15 11:00:00 74 mm[Hg] [facility] Systolic blood pressure 2022-07-03 20:46:00 192 mm[Hg] [facility] Diastolic blood pressure 2022-07-03 20:46:00 98 mm[Hg] [facility] Heart rate 2022-07-03 20:46:00 79 /[facility] 2022-07-03 20:46:00 36.72 Edie [facility] Respiratory rate 2022-07-03 20:46:00 18 /min [facility] Body weight 2022-07-03 20:46:00 131.543 kg [facility] Oxygen saturation in Arterial blood by Pulse oximetry 2022-07-03 20:46:00 97 /min [facility] height 2022-05-23 11:30:00 69 [in_i] Commo n [facility] weight 2022-05-23 11:30:00 285 [lb_av] Comm on [facility] temperature 2022-05-23 11:30:00 98 [degF] Comm on [facility] bmi 2022-05-23 11:30:00 42.08 kg/m2 Comm on [facility] blood pressure systolic 2022-05-23 11:30:00 132 mm[Hg] [facility] blood pressure diastolic 2022-05-23 11:30:00 72 mm[Hg] [facility] height 2022-02-20 09:50:00 69 [in_i] Commo n [facility] weight 2022-02-20 09:50:00 281.2 [lb_av] Co [facility] temperature 2022-02-20 09:50:00 97.2 [degF] Com mon [facility] bmi 2022-02-20 09:50:00 41.52 kg/m2 Comm on [facility] oximetry 2022-02-20 09:50:00 94 % Commo n [facility] respiratory rate 2022-02-20 09:50:00 16 /min Common [facility] blood pressure systolic 2022-02-20 09:50:00 143 mm[Hg] Common [facility] blood pressure diastolic 2022-02-20 09:50:00 76 mm[Hg] [facility] height 2021-11-16 16:10:00 69 [in_i] Commo n [facility] weight 2021-11-16 16:10:00 295 [lb_av] Comm on [facility] temperature 2021-11-16 16:10:00 97.6 [degF] Com mon [facility] bmi 2021-11-16 16:10:00 43.56 kg/m2 Comm on [facility] oximetry 2021-11-16 16:10:00 97 % Commo n [facility] respiratory rate 2021-11-16 16:10:00 16 /min Common [facility] blood pressure systolic 2021-11-16 16:10:00 135 mm[Hg] [facility] blood pressure diastolic 2021-11-16 16:10:00 74 mm[Hg] [facility] height 2021-09-20 08:50:00 60 [in_i] Commo n [facility] weight 2021-09-20 08:50:00 294.5 [lb_av] Co [facility] temperature 2021-09-20 08:50:00 97.9 [degF] Com mon [facility] bmi 2021-09-20 08:50:00 57.51 kg/m2 Comm on [facility] oximetry 2021-09-20 08:50:00 95 % Commo n [facility] respiratory rate 2021-09-20 08:50:00 16 /min [facility] blood pressure systolic 2021-09-20 08:50:00 137 mm[Hg] [facility] blood pressure diastolic 2021-09-20 08:50:00 77 mm[Hg] [facility] height 2021-08-17 15:50:00 60 [in_i] Commo n [facility] weight 2021-08-17 15:50:00 297.4 [lb_av] Co [facility] temperature 2021-08-17 15:50:00 97.9 [degF] Com mon [facility] bmi 2021-08-17 15:50:00 58.08 kg/m2 Comm on [facility] oximetry 2021-08-17 15:50:00 95 % Commo n [facility] respiratory rate 2021-08-17 15:50:00 16 /min Common [facility] blood pressure systolic 2021-08-17 15:50:00 139 mm[Hg] [facility] blood pressure diastolic 2021-08-17 15:50:00 88 mm[Hg] Common [facility] height 2021-04-20 16:00:00 60 [in_i] Commo n [facility] weight 2021-04-20 16:00:00 279.6 [lb_av] Co [facility] temperature 2021-04-20 16:00:00 98.2 [degF] Com mon [facility] bmi 2021-04-20 16:00:00 54.6 kg/m2 Commo n [facility] oximetry 2021-04-20 16:00:00 96 % Commo n [facility] respiratory rate 2021-04-20 16:00:00 17 /min Common [facility] blood pressure systolic 2021-04-20 16:00:00 134 mm[Hg] Common [facility] blood pressure diastolic 2021-04-20 16:00:00 76 mm[Hg] [facility] blood pressure diastolic 2021-02-22 16:10:00 87 mm[Hg] [facility] height 2021-02-22 16:10:00 60 [in_i] Commo n [facility] weight 2021-02-22 16:10:00 288.2 [lb_av] Co [facility] temperature 2021-02-22 16:10:00 98.1 [degF] Com [facility] bmi 2021-02-22 16:10:00 56.28 kg/m2 Comm on [facility] oximetry 2021-02-22 16:10:00 96 % Commo n [facility] respiratory rate 2021-02-22 16:10:00 18 /min Common [facility] blood pressure systolic 2021-02-22 16:10:00 138 mm[Hg] Common [facility] height 2021-01-20 15:00:00 60 [in_i] Commo n [facility] weight 2021-01-20 15:00:00 289.8 [lb_av] Co on [facility] temperature 2021-01-20 15:00:00 97.5 [degF] Com [facility] bmi 2021-01-20 15:00:00 56.59 kg/m2 Comm on [facility] oximetry 2021-01-20 15:00:00 94 % Commo n [facility] respiratory rate 2021-01-20 15:00:00 19 /min Common [facility] blood pressure systolic 2021-01-20 15:00:00 142 mm[Hg] [facility] blood pressure diastolic 2021-01-20 15:00:00 78 mm[Hg] [facility] Procedures Procedure Date / Time Performed Performing Clinician Source EKG-12 LEAD 2023-01-28 15:26:06 [facility] DUPLEX VENOUS LEG RIGHT - BY VASCULAR LAB 2023-01-28 15:17:03 Héctor Santoyo [facility] XR SHOULDER 2+ VW LEFT 2023-01-28 13:45:51 Cande Santoyo [facility] CONSENT/REFUSAL FOR DIAGNOSIS AND TREATMENT 2023-01-28 12:23:21 Doctor Unassigned, [place] [facility] [place] ARTHROCENTESIS ASPIR&/INJ INTERM JT/BURS W/O US 2022-07-03 22:09:31 Margarito Gray [facility] XR SHOULDER 2+ VW LEFT 2022-07-03 21:39:00 Silvio Gray [facility] CONSENT/REFUSAL FOR DIAGNOSIS AND TREATMENT 2022-07-03 20:42:01 Doctor Unassigned, [place] [facility] NOTICE OF PRIVACY PRACTICES 2022-07-03 20:41:04 Doctor Unassigned, [place] [facility] Encounters Start Date/Time End Date/Time Encounter Type Admission Type Attending [facility] Care Facility Care Department Encounter ID Source 2024-06-04 10:10:00 Outpatient Ankita Pressley [facility] [id number] [facility] 2024-05-09 10:13:00 Outpatient Ankita Pressley [facility] [id number] [facility] 2024-05-07 09:42:00 Outpatient Ankita Pressley [facility] [id number] [facility] 2024-01-10 13:46:00 Outpatient Ankita Pressley [facility] [id number] [facility] 2023-12-27 11:29:00 Outpatient FlorianLela coughlinh [facility] [id number] [facility] 2023-11-23 14:00:00 Outpatient Florian, Kurt [facility] [id number] [facility] 2023-11-07 08:16:00 [facility] [id number] [facility] 2023-09-25 10:43:00 [facility] [id number] [facility] 2022-09-06 08:06:00 Outpatient Florian, Kurt [facility] [id number] [facility] 2022-02-17 09:35:01 Outpatient Florian, Kurt [facility] [id number] [facility] 2021-12-16 14:36:01 Outpatient Florian, Kurt [facility] [id number] [facility] 2021-11-21 10:37:01 Outpatient Florian, Kurt [facility] [id number] [facility] 2021-10-20 14:27:00 Outpatient Florian, Kurt [facility] [id number] [facility] 2021-08-26 14:19:00 Outpatient Florian, Kurt [facility] [id number] [facility] 2021-04-27 13:16:15 Outpatient Florian, Kurt [facility] [id number] [facility] [facility] 2021-04-27 12:22:19 Outpatient Florian, Kurt STLMLC STLMLC [id number] [facility] 2021-04-27 11:59:06 Outpatient Florian, Kurt STLC STLMLC [id number] [facility] 2021-04-27 11:57:33 Outpatient Florian, Kurt STLMLC STLMLC [id number] [facility] 2021-04-27 11:19:32 Outpatient Florian, Kurt STLMLC STLMLC [id number] [facility] 2021-04-27 11:18:34 Outpatient Florian, Kurt STLMLC STLMLC [id number] [facility] 2021-04-27 11:08:06 Outpatient Florian, Kurt STLMLC STLMLC [id number] [facility] 2024-08-06 00:00:00 2024-08-06 00:00:00 (TEL) STLMLC STLMLC [id number] [facility] 2024-07-19 00:00:00 2024-07-19 00:00:00 (TEL) STLMLC STLMLC [id number] [facility] 2024-07-09 00:00:00 2024-07-09 00:00:00 OFFICE VISIT ESTAB PT LEVEL 4 STLMLC STLMLC [id number] [facility] 2024-07-09 00:00:00 2024-07-09 00:00:00 (TEL) STLMLC STLMLC [id number] [facility] 2024-06-12 00:00:00 2024-06-12 00:00:00 (TEL) STLMLC STLMLC [id number] [facility] 2024-06-06 00:00:00 2024-06-06 00:00:00 OFFICE VISIT ESTAB PT LEVEL 4 STLMLC STLMLC [id number] [facility] 2024-06-06 00:00:00 2024-06-06 00:00:00 (TEL) STLMLC STLMLC [id number] [facility] 2024-05-09 00:00:00 2024-05-09 00:00:00 (TEL) STLMLC STLMLC [id number] [facility] 2024-05-09 00:00:00 2024-05-09 00:00:00 OFFICE VISIT ESTAB PT LEVEL 4 STLMLC STLMLC [id number] [facility] 2024-05-09 00:00:00 2024-05-09 00:00:00 (TEL) STLMLC STLMLC [id number] [facility] 2024-03-13 00:00:00 2024-03-13 00:00:00 OFFICE VISIT ESTAB PT LEVEL 4 STLMLC STLMLC [id number] [facility] 2024-02-08 00:00:00 2024-02-08 00:00:00 OFFICE VISIT ESTAB PT LEVEL 4 STLMLC STLMLC [id number] [facility] 2024-01-02 00:00:00 2024-01-02 00:00:00 (TEL) STLMLC STLMLC [id number] [facility] 2023-12-31 00:00:00 2023-12-31 00:00:00 (ESTPT) Establishe d Patient STLMLC STLMLC [id number] [facility] 2023-11-29 00:00:00 2023-11-29 00:00:00 OFFICE VISIT NEW PT LEVEL 4 STLMLC STLMLC [id number] [facility] 2023-11-13 00:00:00 2023-11-13 00:00:00 (TEL) STLMLC STLMLC [id number] [facility] 2023-11-07 00:00:00 2023-11-07 00:00:00 OFFICE VISIT ESTAB PT LEVEL 4 STLMLC STLMLC [id number] [facility] 2023-11-06 00:00:00 2023-11-06 00:00:00 (TEL) STLMLC STLMLC [id number] [facility] 2023-09-27 00:00:00 2023-09-27 00:00:00 OFFICE VISIT ESTAB PT LEVEL 4 STLMLC STLMLC [id number] [facility] 2023-06-26 00:00:00 2023-06-26 00:00:00 OFFICE VISIT ESTAB PT LEVEL 4 STLMLC STLMLC [id number] [facility] 2023-06-20 00:00:00 2023-06-20 00:00:00 (TEL) STLMLC STLMLC [id number] [facility] 2023-05-14 00:00:00 2023-05-14 00:00:00 (TEL) STLMLC STLMLC [id number] [facility] 2023-03-28 00:00:00 2023-03-28 00:00:00 OFFICE VISIT ESTAB PT LEVEL 4 STLMLC STLMLC [id number] [facility] 2023-01-28 07:53:00 2023-01-28 11:02:00 Emergency X HÉCTOR SANTOYO [facility] ERT [id number] [facility] 2023-01-28 07:53:00 2023-01-28 11:02:00 Emergency Héctor Santoyo [facility] [id number] [id number] [facility] 2022-12-20 00:00:00 2022-12-20 00:00:00 OFFICE VISIT ESTAB PT LEVEL 4 STLMLC STLMLC [id number] [facility] 2022-11-09 00:00:00 2022-11-09 00:00:00 (TEL) STLMLC STLMLC [id number] [facility] 2022-09-15 00:00:00 2022-09-15 00:00:00 OFFICE VISIT ESTAB PT LEVEL 4 STLMLC STLMLC [id number] [facility] 2022-07-19 00:00:00 2022-07-19 00:00:00 Telephone Matt Drake [facility] 1..840.114 [id number] [facility] 2022-07-03 15:47:00 2022-07-03 17:43:00 Emergency X MARGARITO GRAY [facility] ERT [id number] [facility] 2022-07-03 15:47:00 2022-07-03 17:43:00 Emergency Margarito Gray [facility] 1..840.114 [id number] [id number] [id number] [facility] 2022-05-23 00:00:00 2022-05-23 00:00:00 OFFICE VISIT ESTAB PT LEVEL 3 STLMLC STLMLC [id number] [facility] 2022-02-20 00:00:00 2022-02-20 00:00:00 OFFICE VISIT EST PT LEVEL 3 STLMLC STLMLC [id number] [facility] 2021-11-16 00:00:00 2021-11-16 00:00:00 OFFICE VISIT ESTAB PT LEVEL 4 STLMLC STLMLC [id number] [facility] 2021-09-20 00:00:00 2021-09-20 00:00:00 OFFICE VISIT ESTAB PT LEVEL 4 STLMLC STLMLC [id number] [facility] 2021-08-17 00:00:00 2021-08-17 00:00:00 OFFICE VISIT ESTAB PT LEVEL 4 STLMLC STLMLC [id number] [facility] 2021-08-09 00:00:00 2021-08-09 00:00:00 (TEL) STLMLC STLMLC [id number] [facility] 2021-04-20 00:00:00 2021-04-20 00:00:00 OFFICE VISIT ESTAB PT LEVEL 4 STLMLC STLMLC [id number] [facility] 2021-02-22 00:00:00 2021-02-22 00:00:00 OFFICE VISIT ESTAB PT LEVEL 4 STLMLC STLMLC [id number] [facility] 2021-01-20 00:00:00 2021-01-20 00:00:00 OFFICE VISIT ESTAB PT LEVEL 4 STLMLC STLMLC [id number] [facility] 2020-11-04 00:00:00 2020-11-04 00:00:00 Outpatient STLMLC STLMLC [id number] [facility] 2020-11-01 00:00:00 2020-11-01 00:00:00 Outpatient STLMLC STLMLC [id number] [facility] 2020-09-29 00:00:00 2020-09-29 00:00:00 Outpatient STLMLC STLMLC [id number] [facility] 2020-07-27 00:00:00 2020-07-27 00:00:00 Outpatient STLMLC STLMLC [id number] [facility] 2020-04-21 00:00:00 2020-04-21 00:00:00 Outpatient STLMLC STLMLC [id number] [facility] 2020-04-20 00:00:00 2020-04-20 00:00:00 Outpatient STLMLC STLMLC [id number] [facility] 2020-01-28 00:00:00 2020-01-28 00:00:00 Outpatient STLMLC STLMLC [id number] [facility] 2019-10-28 15:00:00 2019-10-28 15:00:[address] [facility] [id number] [facility] 2019-07-29 16:00:00 2019-07-29 16:00:00 [facility] [id number] [facility] 2019-07-17 14:05:00 2019-07-17 14:05:00 [facility] [id number] [facility] 2019-05-21 14:39:00 2019-05-21 14:39:00 [facility] [id number] [facility] 2019-05-20 16:00:00 2019-05-20 16:00:00 [facility] [id number] [facility] 2018-10-18 13:23:00 2018-10-18 13:23:00 [facility] [id number] [facility] 2018-10-18 10:45:00 2018-10-18 10:45:00 Outpatient [facility] [id number] [facility] 2017-10-17 15:00:00 2017-10-17 15:00:00 Outpatient [facility] [id number] [facility] Results Test Description Test Time Test Comments Results Result Co mments Source CLIENT EDUCATION [id number] 00:00:00CLIENT EDUCATION TRACKINGEXTRA URINE [id number] 00:00:00COMMENTEXTRA URINE SPECIMENHEMOGLOBIN [id number] 00:00:00* Test Item Value Reference Range Interpretation Comme nts A1C (test code = 4548-4) 13.3 HEMOGLOBIN [id number] 00:00:00* Test Item Value Reference Range Interpretation Comme nts A1C (test code = 4548-4) 14.7 HEMOGLOBIN [id number] 00:00:00* Test Item Value Reference Range Interpretation Comme nts A1C (test code = 4548-4) 9.0 TSH REFLEX TO FREE [id number] 00:00:00* Test Item Value Reference Range Interpretation Comme nts NUCLEATED RBCS (test code = 16307-7) 0.0 /100 WBC'S See_Comment [Automated message] The system which generated this result transmitted reference range: 0.0 /100 WBC'S. The reference range was not used to interpret this result as normal/abnormal. ABSOLUTE EOSINOPHILS (test code = 85046-2) 0.57 K/UL See_Comment H [Automated message] The system which generated this result transmitted reference range: 0.00-0.50 K/UL. The reference range was not used to interpret this result as normal/abnormal. ABSOLUTE LYMPHOCYTES (test code = 91888-5) 2.79 K/UL See_Comment [Automated message] The system which generated this result transmitted reference range: 1.00-4.00 K/UL. The reference range was not used to interpret this result as normal/abnormal. ABSOLUTE MONOCYTES (test code = 39552-2) 0.72 K/UL See_Comment [Automated message] The system which generated this result transmitted reference range: 0.20-1.00 K/UL. The reference range was not used to interpret this result as normal/abnormal. ABSOLUTE NEUTROPHILS (test code = 77391-6) 4.99 K/UL See_Comment [Automated message] The system which generated this result transmitted reference range: 1.50-7.50 K/UL. The reference range was not used to interpret this result as normal/abnormal. BASOPHILS (test code = 65063-4) 0.4 % EOSINOPHILS (test code = 53978-8) 6.2 % HEMATOCRIT (test code = 86738-0) 42.6 % See_Comment [Automated messa ge] The [...] result as normal/abnormal. LYMPHOCYTES (test code = 53696-0) 30.5 % MCH (test code = 64374-6) 28.3 PG See_Comment [Automated messa ge] The system which generated this result transmitted reference range: 25.0-33.0 PG. The reference range was not used to interpret this result as normal/abnormal. MCHC (test code = 86443-7) 32.4 G/DL See_Comment [Automated messa ge] The system which generated this result transmitted reference range: 31.0-36.0 G/DL. The reference range was not used to interpret this result as normal/abnormal. MCV (test code = 14344-1) 87.5 fL See_Comment [Automated messa ge] The system which generated this result transmitted reference range: 80.0-99.0 fL. The reference range was not used to interpret this result as normal/abnormal. MONOCYTES (test code = 26340-0) 7.9 % NEUTROPHILS (test code = 52955-7) 54.7 % PLATELET COUNT (test code = 47641-2) 213 K/UL See_Comment [Automated messa ge] The system which generated this result transmitted reference range: 130-400 K/UL. The reference range was not used to interpret this result as normal/abnormal. RBC (test code = 09001-0) 4.87 M/UL See_Comment [Automated [employer]] The system which generated this result transmitted reference range: 4.50-6.10 M/UL. The reference range was not used to interpret this result as normal/abnormal. RDW (test code = 38710-1) 12.8 % See_Comment [Automated [employer]] The system which generated this result transmitted reference range: 11.5-15.0 %. The reference range was not used to interpret this result as normal/abnormal. WBC (test code = 54773-2) 9.1 K/UL See_Comment [Automated [employer]] The system which generated this result transmitted reference range: 3.5-11.0 K/UL. The reference range was not used to interpret this result as normal/abnormal. HEMOGLOBIN A1c (test code = 4548-4) 10.2 % See_Comment H [Automated [employer]] The system which generated this result transmitted reference range: 4.2-5.6 %. The reference range was not used to interpret this result as normal/abnormal. CALC LDL CHOL (test code = 45773-1) 67 MG/DL See_Comment [Automated [employer]] The system which generated this result transmitted reference range: <100 MG/DL. The reference range was not used to interpret this result as normal/abnormal. CHOLESTEROL (test code = 2093-3) 121 MG/DL See_Comment [Automated [employer]] The system which generated this result transmitted reference range: <200 MG/DL. The reference range was not used to interpret this result as normal/abnormal. HDL CHOLESTEROL (test code = 2085-9) 36 MG/DL See_Comment L [Automated [employer]] The system which generated this result transmitted reference range: >39 MG/DL. The reference range was not used to interpret this result as normal/abnormal. RISK RATIO LDL/HDL (test code = 55383-5) 1.86 RATIO See_Comment [Automated message] The system which generated this result transmitted reference range: <3.55 RATIO. The reference range was not used to interpret this result as normal/abnormal. TRIGLYCERIDES (test code = 2571-8) 93 MG/DL See_Comment [Automated [employer]] The system which generated this result transmitted reference range: <150 MG/DL. The reference range was not used to interpret this result as normal/abnormal. ALBUMIN, URINE, RANDOM (test code = 41905-2) 81.9 MG/DL NOT ESTAB MG/DL CALC ALBUMIN/CREAT, RND (test code = 19261-4) 1145 MG/G See_Comment H [Automated messa ge] [...] result as normal/abnormal. CALCIUM (test code = 20422-9) 9.8 MG/DL See_Comment [Automated messa ge] The system which generated this result transmitted reference range: 8.5-10.5 MG/DL. The reference range was not used to interpret this result as normal/abnormal. CALC A/G RATIO (test code = 1759-0) 1.5 RATIO See_Comment [Automated [employer]] The system which generated this result [...] as normal/abnormal. CALC GLOBULIN (test code = 56604-3) 2.7 G/DL See_Comment [Automated messa ge] The system which generated this result transmitted reference range: 1.9-3.7 G/DL. The reference range was not used to interpret this result as normal/abnormal. CARBON DIOXIDE (test code = 1963-8) 32 MEQ/L See_Comment H [Automated messa ge] The system which generated this result transmitted reference range: 19-31 MEQ/L. The reference range was not used to interpret this result as normal/abnormal. CHLORIDE (test code = 2075-0) 103 MEQ/L See_Comment [Automated messa ge] The [...] normal/abnormal. eGFR (2020 CKD-EPI) (test code = 07864-7) 70 ML/MIN/1.73 See_Comment [Automated message] The system [...] REFLEX TO FREE T4 (test code = 49879-0) 1.790 UIU/ML See_Comment [Automated message] The system which generated this result transmitted reference range: 0.400-4.100 UIU/ML. The reference range was not used to interpret this result as normal/abnormal. HEMOGLOBIN [id number] 00:00:00* Test Item Value Reference Range Interpretation Comme nts A1C (test code = 4548-4) 9.9 CBC W/AUTO [id number] 00:00:00* Test Item Value Reference Range Interpretation Comme nts NUCLEATED RBCS (test code = 73258-4) 0.0 /100 WBC'S See_Comment [Automated messa ge] The system which generated this result transmitted reference range: 0.0 /100 WBC'S. The reference range was not used to interpret this result as normal/abnormal. ABSOLUTE EOSINOPHILS (test code = 42672-8) 0.27 K/UL See_Comment [Automated messa ge] The system which generated this result transmitted reference range: 0.00-0.50 K/UL. The reference range was not used to interpret this result as normal/abnormal. ABSOLUTE LYMPHOCYTES (test code = 72154-9) 2.01 K/UL See_Comment [Automated messa ge] The system which generated this result transmitted reference range: 1.00-4.00 K/UL. The reference range was not used to interpret this result as normal/abnormal. ABSOLUTE MONOCYTES (test code = 84650-7) 0.61 K/UL See_Comment [Automated messa ge] The system which generated this result transmitted reference range: 0.20-1.00 K/UL. The reference range was not used to interpret this result as normal/abnormal. ABSOLUTE NEUTROPHILS (test code = 21581-1) 5.51 K/UL See_Comment [Automated messa ge] The system which generated this result transmitted reference range: 1.50-7.50 K/UL. The reference range was not used to interpret this result as normal/abnormal. BASOPHILS (test code = 53172-2) 0.6 % EOSINOPHILS (test code = 12603-2) 3.2 % HEMATOCRIT (test code = 59038-7) 43.8 % See_Comment [Automated messa ge] The [...] result as normal/abnormal. LYMPHOCYTES (test code = 87222-4) 23.7 % MCH (test code = 06712-7) 29.1 PG See_Comment [Automated messa ge] The system which generated this result transmitted reference range: 25.0-33.0 PG. The reference range was not used to interpret this result as normal/abnormal. MCHC (test code = 73188-6) 33.6 G/DL See_Comment [Automated messa ge] The system which generated this result transmitted reference range: 31.0-36.0 G/DL. The reference range was not used to interpret this result as normal/abnormal. MCV (test code = 76565-6) 86.7 fL See_Comment [Automated messa ge] The system which generated this result transmitted reference range: 80.0-99.0 fL. The reference range was not used to interpret this result as normal/abnormal. MONOCYTES (test code = 06448-6) 7.2 % NEUTROPHILS (test code = 51985-5) 64.9 % PLATELET COUNT (test code = 61676-7) 198 K/UL See_Comment [Automated messa ge] The system which generated this result transmitted reference range: 130-400 K/UL. The reference range was not used to interpret this result as normal/abnormal. RBC (test code = 02213-2) 5.05 M/UL See_Comment [Automated messa ge] The system which generated this result transmitted reference range: 4.50-6.10 M/UL. The reference range was not used to interpret this result as normal/abnormal. RDW (test code = 61748-9) 12.2 % See_Comment [Automated messa ge] The system which generated this result transmitted reference range: 11.5-15.0 %. The reference range was not used to interpret this result as normal/abnormal. WBC (test code = 92694-8) 8.5 K/UL See_Comment [Automated messa ge] The system which generated this result transmitted reference range: 3.5-11.0 K/UL. The reference range was not used to interpret this result as normal/abnormal. CBC W/AUTO [id number] 00:00:00* Test Item Value Reference Range Interpretation Comme nts NUCLEATED RBCS (test code = 62451-1) 0.0 /100 WBC'S See_Comment [Automated messa ge] The system which generated this result transmitted reference range: 0.0 /100 WBC'S. The reference range was not used to interpret this result as normal/abnormal. ABSOLUTE EOSINOPHILS (test code = 89226-7) 0.25 K/UL See_Comment [Automated messa ge] The system which generated this result transmitted reference range: 0.00-0.50 K/UL. The reference range was not used to interpret this result as normal/abnormal. ABSOLUTE LYMPHOCYTES (test code = 85550-3) 1.78 K/UL See_Comment [Automated messa ge] The system which generated this result transmitted reference range: 1.00-4.00 K/UL. The reference range was not used to interpret this result as normal/abnormal. ABSOLUTE MONOCYTES (test code = 64171-5) 0.51 K/UL See_Comment [Automated messa ge] The system which generated this result transmitted reference range: 0.20-1.00 K/UL. The reference range was not used to interpret this result as normal/abnormal. ABSOLUTE NEUTROPHILS (test code = 75839-9) 4.15 K/UL See_Comment [Automated messa ge] The system which generated this result transmitted reference range: 1.50-7.50 K/UL. The reference range was not used to interpret this result as normal/abnormal. BASOPHILS (test code = 76922-0) 0.4 % EOSINOPHILS (test code = 72596-5) 3.7 % HEMATOCRIT (test code = 44778-8) 42.8 % See_Comment [Automated messa ge] The [...] result as normal/abnormal. LYMPHOCYTES (test code = 80378-6) 26.3 % MCH (test code = 98904-8) 29.6 PG See_Comment [Automated messa ge] The system which generated this result transmitted reference range: 25.0-33.0 PG. The reference range was not used to interpret this result as normal/abnormal. MCHC (test code = 25629-4) 33.6 G/DL See_Comment [Automated messa ge] The system which generated this result transmitted reference range: 31.0-36.0 G/DL. The reference range was not used to interpret this result as normal/abnormal. MCV (test code = 06116-4) 87.9 fL See_Comment [Automated messa ge] The system which generated this result transmitted reference range: 80.0-99.0 fL. The reference range was not used to interpret this result as normal/abnormal. MONOCYTES (test code = 03825-3) 7.5 % NEUTROPHILS (test code = 18036-6) 61.5 % PLATELET COUNT (test code = 12782-8) 187 K/UL See_Comment [Automated messa ge] The system which generated this result transmitted reference range: 130-400 K/UL. The reference range was not used to interpret this result as normal/abnormal. RBC (test code = 06550-1) 4.87 M/UL See_Comment [Automated messa ge] The system which generated this result transmitted reference range: 4.50-6.10 M/UL. The reference range was not used to interpret this result as normal/abnormal. RDW (test code = 94606-4) 12.5 % See_Comment [Automated messa ge] The system which generated this result transmitted reference range: 11.5-15.0 %. The reference range was not used to interpret this result as normal/abnormal. WBC (test code = 34992-7) 6.8 K/UL See_Comment [Automated messa ge] The system which generated this result transmitted reference range: 3.5-11.0 K/UL. The reference range was not used to interpret this result as normal/abnormal. CBC W/AUTO [id number] 00:00:00* Test Item Value Reference Range Interpretation Comme nts NUCLEATED RBCS (test code = 40711-2) 0.0 /100 WBC'S See_Comment [Automated messa ge] The system which generated this result transmitted reference range: 0.0 /100 WBC'S. The reference range was not used to interpret this result as normal/abnormal. ABSOLUTE EOSINOPHILS (test code = 82622-7) 0.28 K/UL See_Comment [Automated messa ge] The system which generated this result transmitted reference range: 0.00-0.50 K/UL. The reference range was not used to interpret this result as normal/abnormal. ABSOLUTE LYMPHOCYTES (test code = 97535-6) 2.17 K/UL See_Comment [Automated messa ge] The system which generated this result transmitted reference range: 1.00-4.00 K/UL. The reference range was not used to interpret this result as normal/abnormal. ABSOLUTE MONOCYTES (test code = 31875-2) 0.53 K/UL See_Comment [Automated messa ge] The system which generated this result transmitted reference range: 0.20-1.00 K/UL. The reference range was not used to interpret this result as normal/abnormal. ABSOLUTE NEUTROPHILS (test code = 38829-7) 4.68 K/UL See_Comment [Automated messa ge] The system which generated this result transmitted reference range: 1.50-7.50 K/UL. The reference range was not used to interpret this result as normal/abnormal. BASOPHILS (test code = 00549-8) 0.6 % EOSINOPHILS (test code = 92189-1) 3.6 % HEMATOCRIT (test code = 71200-3) 48.9 % See_Comment [Automated messa ge] The [...] result as normal/abnormal. LYMPHOCYTES (test code = 11391-3) 28.1 % MCH (test code = 79630-2) 28.9 PG See_Comment [Automated messa ge] The system which generated this result transmitted reference range: 25.0-33.0 PG. The reference range was not used to interpret this result as normal/abnormal. MCHC (test code = 81261-7) 32.7 G/DL See_Comment [Automated messa ge] The system which generated this result transmitted reference range: 31.0-36.0 G/DL. The reference range was not used to interpret this result as normal/abnormal. MCV (test code = 47173-3) 88.4 fL See_Comment [Automated messa ge] The system which generated this result transmitted reference range: 80.0-99.0 fL. The reference range was not used to interpret this result as normal/abnormal. MONOCYTES (test code = 98056-2) 6.9 % NEUTROPHILS (test code = 81826-5) 60.7 % PLATELET COUNT (test code = 51800-7) 190 K/UL See_Comment [Automated messa ge] The system which generated this result transmitted reference range: 130-400 K/UL. The reference range was not used to interpret this result as normal/abnormal. RBC (test code = 22635-7) 5.53 M/UL See_Comment [Automated messa ge] The system which generated this result transmitted reference range: 4.50-6.10 M/UL. The reference range was not used to interpret this result as normal/abnormal. RDW (test code = 76419-6) 12.1 % See_Comment [Automated [employer]] The system which generated this result transmitted reference range: 11.5-15.0 %. The reference range was not used to interpret this result as normal/abnormal. WBC (test code = 13619-6) 7.7 K/UL See_Comment [Automated [employer]] The system which generated this result transmitted reference range: 3.5-11.0 K/UL. The reference range was not used to interpret this result as normal/abnormal. HEMOGLOBIN [id number] 00:00:00* Test Item Value Reference Range Interpretation Comme nts A1C (test code = 4548-4) 11.2 HEMOGLOBIN [id number] 00:00:00* Test Item Value Reference Range Interpretation Comme nts A1C (test code = 4548-4) 10.9
[2024-08-16] MEDS ORDERED: ALBUTEROL 2.5 MG/3 ML NEB SOL ONE ×2 (15:45→17:23)
[2024-08-16] MEDS ORDERED: IPRATROPIUM BROM 0.5MG/2.5ML ONE ×2 (15:45→17:23)
[2024-08-16] MEDS ORDERED: dexAMETHasone 10 MG/ML VIAL ONE (15:46)
--- NOTE | 2024-08-16 16:06 | RAD REPORT ---
EXAM: Chest Pa And Lat (2 Views) HISTORY: 54 years Male COUGH COMPARISON: 05/08/2024 FINDINGS: LUNGS/PLEURA: Low lung volumes with apparent basilar opacities. This could reflect atelectasis but ma y also be accentuated by portable technique and hypoventilation. CARDIAC/MEDIASTINUM: The cardiac silhouette is within normal limits. UPPER ABDOMEN: No significant abnormality. BONES: No acute abnormality. LINES/TUBES/OTHER: N/A IMPRESSION: Low lung volumes with basilar opacities that could reflect low lung volumes and portable technique ho wever airspace disease cannot be excluded. Consider a dedicated PA and lateral to better assess when the patient's condition permits.
[2024-08-16 16:07] LABS: Absolute Basophils 0.1 K/uL (0-0.5); Absolute Eosinophils 0.6 K/uL (0-0.5); Absolute Lymphocytes (CBC) 1.8 K/uL (0.7-4.9); Absolute Monocytes 0.5 K/uL (0.1-1.3); Absolute Neutrophil 3.9 K/uL (1.8-8.0); Basophils % 0.8 % (0-1.3); Eosinophils % 8.4 % (0-4.4); Hematocrit 41.1 % (39.6-49.0); Hemoglobin 14.3 g/dL (13.6-17.9); Lymphocytes % 26.1 % (15.3-44.8); MCH 29.4 pg (27.0-35.0); MCHC 34.8 g/dL (32.0-36.0); MCV 84.4 fL (80-100); Monocytes % 6.7 % (3.3-12.3); Nucleated Red Blood Cells % 0.2 % (0-0); Platelets 185 thou/uL (152-406); RBC Red Blood Cell Count 4.87 M/uL (4.33-5.43); Red Cell Distribution Width 13.8 % (12.1-15.2)
[2024-08-16 16:18] LABS: Anion Gap 8.2 mEq/L (5.0-15.0); Potassium 4.2 mEq/L (3.5-5.1)
[2024-08-16 16:20] LABS: SARS-CoV-2 Antigen Rapid Res Negative (Negative)
--- NOTE | 2024-08-16 17:39 | ER ---
Nurse's Notes [facility] Name: Guille Dunham Age: 54 yrs Sex: Male : 1970 Arrival Date: 08/16/2024 Time: 14:47 Bed 3 Private MD: Diagnosis: Unspecified bacterial pneumonia;Unspecified conjunctivitis Presentation: 08/16 15:07 Chief complaint: Patient states: Cough for 3 weeks. Coughing up blood for 3 days. Awoke ll1 today with L eye pain redness, irritation. Coronavirus screen: Client denies travel out of the [place] in the last 14 days. cough unrelated to allergies, Client presents with at least one sign or symptom that may indicate coronavirus-19. Standard/surgical mask placed on the client. Ebola Screen: Patient denies travel to an Ebola-affected area in the 21 days before illness onset. Initial Sepsis Screen: Does the patient meet any 2 criteria? No. Patient's initial sepsis screen is negative. Does the patient have a suspected source of infection? No. Patient's initial sepsis screen is negative. Risk Assessment: Do you want to hurt yourself or someone else? Patient reports no desire to harm self or others. Onset of symptoms was July 25, 2024. 15:07 Method Of Arrival: Ambulatory ll1 15:07 Acuity: JANICE 2 ll1 Triage Assessment: 15:07 General: Appears distressed, uncomfortable, Behavior is calm, cooperative, appropriate ll1 for age. Pain: Complains of pain in left ear. EENT: Sclera/Cornea are reddened in outer aspect of conjuctiva of left eye, iris of left eye and inner aspect of conjunctiva of left eye tearing, irritation, significant pain. Reports pain in left eye. Respiratory: Reports cough that is productive. Historical: - Allergies: 15:06 NKDA; ll1 - PMHx: 15:06 Diabetes - IDDM; Hyperlipidemia; Hypertension; ll1 - PSHx: 15:06 Operative procedure on knee; retina procedure (Operative procedure on knee); R foot ll1 surgery (Operative procedure on knee); - Immunization history:: Adult Immunizations up to date. - Infectious Disease History:: Denies. - Social history:: Smoking status: Patient denies any tobacco usage or history of. Screenin:26 [facility] ED Fall Risk Assessment (Adult) History of falling in the last 3 months, mb9 including since admission No falls in past 3 months (0 pts) Confusion or Disorientation No (0 pts) Intoxicated or Sedated No (0 pts) Impaired Gait No (0 pts) Mobility Assist Device Used No (0 pt) Altered Elimination No (0 pt) Score/Fall Risk Level 0 - 2 = Low Risk Oriented to surroundings, Maintained a safe environment, Educated pt \T\ family on fall prevention, incl call for assistance when getting out of bed. Abuse screen: Denies threats or abuse. Nutritional screening: No deficits noted. Tuberculosis screening: No symptoms or risk factors identified. Assessment: 15:24 General: Appears in no apparent distress. Behavior is calm, cooperative. Pain: mb9 Complains of pain in left eye. Neuro: [place] Agitation-Sedation Scale (RASS): 0 - Alert and Calm Level of Consciousness is awake, alert, obeys commands, Oriented to person, place, time, situation, Appropriate for age. Cardiovascular: Patient's skin is warm and dry. Cardiovascular: Heart tones S1 S2 present. Respiratory: Reports cough that is black Airway is patent Respiratory effort is even, unlabored, Respiratory pattern is regular, symmetrical. GI: Abdomen is round Reports diarrhea. : No signs and/or symptoms were reported regarding the genitourinary system. EENT: Sclera/Cornea are reddened in outer aspect of conjuctiva of left eye, iris of left eye and inner aspect of conjunctiva of left eye Reports pain in left eye. Derm: Skin is pink, warm \T\ dry. Musculoskeletal: Range of motion: intact in all extremities. 16:56 Reassessment: Patient appears in no apparent distress at this time. No changes from kc6 previously documented assessment. Patient and/or family updated on plan of care and expected duration. Pain level reassessed. Patient is alert, oriented x 3, equal unlabored respirations, skin warm/dry/pink. 18:00 Reassessment: No changes from previously documented assessment. Patient and/or family mb9 updated on plan of care and expected duration. Pain level reassessed. Patient is alert, oriented x 3, equal unlabored respirations, skin warm/dry/pink. Vital Signs: 15:07 BP 172 / 121; Pulse 82; Resp 18; Temp 97.8; Pulse Ox 95% ; Weight 122.47 kg; Height 5 ll1 ft. 9 in. ; Pain 5/10; 15:33 BP 196 / 113; Pulse 80; Resp 18; Pulse Ox 95% on R/A; mb9 16:55 BP 179 / 92; Pulse 93; Resp 18 S; Pulse Ox 96% on R/A; kc6 17:59 BP 175 / 89; Pulse 88; Resp 18; Pulse Ox 100% on R/A; mb9 15:07 Body Mass Index 39.87 (122.47 kg, 175.26 cm) ll1 15:07 Pain Scale: Adult ll1 ED Course: 14:52 Patient arrived in ED. al6 15:02 Heraclio Johnson FNP-C [facility]. dr5 15:02 Rajesh Flores MD is Attending Physician. dr5 15:08 Triage completed. ll1 15:21 Gillian Monroe, JOELLEN is Primary Nurse. mb9 15:21 Arm band placed on. mb9 15:26 Bed in low position. Call light in reach. Side rails up X 1. Provided Education on: mb9 press call light if needing anything. Client placed on continuous cardiac and pulse oximetry monitoring. NIBP monitoring applied. 15:26 No provider procedures requiring assistance completed. mb9 15:33 Initial lab(s) drawn, by me, sent to lab. Inserted saline lock: 18 gauge in right mb9 antecubital area, using aseptic technique. Blood collected. Flushed with 10 mL NS. 15:55 Chest Pa And Lat (2 Views) XRAY In Process Unspecified. EDMS 16:04 EKG done, by ED staff, reviewed by Heraclio JO COVID swab sent to lab. kc6 18:00 IV discontinued, intact, bleeding controlled, No redness/swelling at site. Pressure mb9 dressing applied. Administered Medications: 16:04 Drug: DuoNeb Nebulize (3:1) (2.5 mg - 0.5 mg) 3 ml Nebulizer once Route: Nebulizer; kc6 16:56 Follow up: Response: No adverse reaction kc6 16:04 Drug: Decadron - Dexamethasone IVP 10 mg IVP once Route: IVP; Site: right antecubital; kc6 16:56 Follow up: Response: No adverse reaction kc6 17:26 Drug: DuoNeb Nebulize (3:1) (2.5 mg - 0.5 mg) 3 ml Nebulizer once Route: Nebulizer; [id number] Medication: 15:26 VIS not applicable for this client. mb9 Outcome: 17:39 Discharge ordered by . dr5 18:00 Discharged to home ambulatory, mb9 18:00 Condition: stable 18:00 Discharge instructions given to patient, Instructed on discharge instructions, follow up and referral plans. Demonstrated understanding of instructions, follow-up care, medications, Prescriptions given X 5 18:00 Patient left the ED. jailyn Signatures: Dispatcher [employer] EDPeyton Allred RN RN ll1 Caroline Block RN RN kc6 Fer, Gillian Tariq RN RN mb9 Heraclio Johnson, RECEPTIONIST SECRETARY-C RECEPTIONIST SECRETARY-Cdr5 Neli Laureano
--- NOTE | 2024-08-16 17:40 | EDPHYS ---
Physician Documentation [facility] Name: Guille Dunham Age: 54 yrs Sex: Male : 1970 Arrival Date: 08/16/2024 Time: 14:47 Bed 3 Private MD: ED Physician Rajesh Flores HPI: 08/16 17:44 This 54 yrs old Male presents to ER via Ambulatory with complaints of Flu dr5 Symptoms, coughing blood, Eye Problem. 17:44 Patient is a 54-year-old male with history of diabetes, hyperlipidemia, hypertension dr5 coming in with flulike symptoms for the past 3 weeks. Patient reports that his left eye has also been watering. Patient states that he has been coughing and congestion and sometimes has blood in his mucus. Mucus also is yellow and green at times. Patient reports having a fever at home.. Historical: - Allergies: 15:06 NKDA; ll1 - PMHx: 15:06 Diabetes - IDDM; Hyperlipidemia; Hypertension; ll1 - PSHx: 15:06 Operative procedure on knee; retina procedure (Operative procedure on knee); R foot ll1 surgery (Operative procedure on knee); - Immunization history:: Adult Immunizations up to date. - Infectious Disease History:: Denies. - Social history:: Smoking status: Patient denies any tobacco usage or history of. ROS: 17:44 Constitutional: as per hpi dr5 Exam: 17:44 Constitutional: This is a well developed, well nourished patient who is awake, alert, dr5 and in no acute distress. Head/Face: Normocephalic, atraumatic. Eyes: Pupils equal round and reactive to light, extra-ocular motions intact. Lids and lashes normal. Conjunctiva and sclera are non-icteric and not injected. Cornea within normal limits. Periorbital areas with no swelling, redness, or edema. Neck: Trachea midline, no thyromegaly or masses palpated, and no cervical lymphadenopathy. Supple, full range of motion without nuchal rigidity, or vertebral point tenderness. No Meningismus. Chest/axilla: Normal chest wall appearance and motion. Nontender with no deformity. No lesions are appreciated. Cardiovascular: Regular rate and rhythm with a normal S1 and S2. Normal PMI, no JVD. No pulse deficits. 17:44 Abdomen/GI: Soft, non-tender, non-distended Back: No spinal tenderness. No costovertebral tenderness. Full range of motion. Skin: Warm, dry with normal turgor. Normal color with no rashes, no lesions, and no evidence of cellulitis. Neuro: Awake and alert, GCS 15, oriented to person, place, time, and situation. Cranial nerves II-XII grossly intact. Motor strength 5/5 in all extremities. Sensory grossly intact. Cerebellar exam normal. Normal gait. 17:44 Respiratory: mild respiratory distress is noted, Respirations: Breath sounds: wheezing: expiratory is heard diffusely, Vital Signs: 15:07 BP 172 / 121; Pulse 82; Resp 18; Temp 97.8; Pulse Ox 95% ; Weight 122.47 kg; Height 5 ll1 ft. 9 in. ; Pain 5/10; 15:33 BP 196 / 113; Pulse 80; Resp 18; Pulse Ox 95% on R/A; mb9 16:55 BP 179 / 92; Pulse 93; Resp 18 S; Pulse Ox 96% on R/A; kc6 17:59 BP 175 / 89; Pulse 88; Resp 18; Pulse Ox 100% on R/A; mb9 15:07 Body Mass Index 39.87 (122.47 kg, 175.26 cm) ll1 15:07 Pain Scale: Adult ll1 MDM: 15:03 Medical Screening Exam initiated dr5 17:44 Differential diagnosis: viral Infection, bacterial infection, URI, bronchitis, dr5 pneumonia. Data reviewed: vital signs, nurses notes. I considered the following discharge prescriptions or medication management in the emergency department Medications were administered in the Emergency Department. See MAR. Care significantly affected by the following chronic conditions: Diabetes, Hypertension, Hyperlipidemia. Care significantly affected by the following Social Determinants of Health: Poor access to healthcare and/or lack of insurance, Poor access to transportation, Problems related to employment. Counseling: I had a detailed discussion with the patient and/or guardian regarding the historical points, exam findings, and any diagnostic results supporting the discharge/admit diagnosis, the presence of at least one elevated blood pressure reading (>120/80) during this emergency department visit, lab results, the need for outpatient follow up, for definitive care, a family practitioner, to return to the emergency department if symptoms worsen or persist or if there are any questions or concerns that arise at home. ED course: Patient reports he is feeling much better after 3 DuoNeb's. Patient states his headache has resolved. Will give patient Ocuflox for left-sided conjunctivitis. Will give patient antibiotics for concerns of possible pneumonia as well as steroids and inhaler for bronchitis. Recommended patient follow-up primary care doctor this next week for further management and strict ER precautions to return for worsening conditions.. 08/16 15:39 Order name: Basic Metabolic Panel; Complete Time: 16:33 [facility] 08/16 15:39 Order name: CBC with Diff; Complete Time: 16:33 [facility] 08/16 15:39 Order name: NT PRO-BNP; Complete Time: 16:33 [facility] 08/16 15:39 Order name: Troponin HS; Complete Time: 16:33 [facility] 08/16 15:39 Order name: SARS RAPID; Complete Time: 16:33 [facility] 08/16 15:39 Order name: Chest Pa And Lat (2 Views) XRAY; Complete Time: 16:33 [facility] 08/16 15:39 Order name: EKG; Complete Time: 15:39 [facility] 08/16 15:39 Order name: Cardiac monitoring; Complete Time: 15:44 [facility] 08/16 15:39 Order name: EKG - Nurse/Tech; Complete Time: 15:44 [facility] 08/16 15:39 Order name: IV Saline Lock; Complete Time: 15:39 [facility] 08/16 15:39 Order name: Labs collected and sent; Complete Time: 15:39 [facility] 08/16 15:39 Order name: O2 Per Protocol; Complete Time: 15:39 [facility] 08/16 15:39 Order name: O2 Sat Monitoring; Complete Time: 15:39 kc EC:46 Rate is 77 beats/min. Rhythm is regular. QRS [place] is Normal. ID interval is normal at dr5 166 msec. QRS interval is normal at 72 msec. QT interval is normal at 382 msec. Administered Medications: 16:04 Drug: DuoNeb Nebulize (3:1) (2.5 mg - 0.5 mg) 3 ml Nebulizer once Route: Nebulizer; 6 16:56 Follow up: Response: No adverse reaction 6 16:04 Drug: Decadron - Dexamethasone IVP 10 mg IVP once Route: IVP; Site: right antecubital; 6 16:56 Follow up: Response: No adverse reaction 6 17:26 Drug: DuoNeb Nebulize (3:1) (2.5 mg - 0.5 mg) 3 ml Nebulizer once Route: Nebulizer; mb9 Disposition Summary: 08/16/24 17:39 Discharge Ordered Notes: Location: Home dr5 Condition: Stable dr5 Diagnosis - Unspecified bacterial pneumonia dr5 - Unspecified conjunctivitis dr5 Followup: dr5 - With: Emergency Department - When: As needed - Reason: Worsening of condition Followup: dr5 - With: Private Physician - When: 1 - 2 days - Reason: Recheck today's complaints, Continuance of care, Re-evaluation by your physician Discharge Instructions: - Discharge Summary Sheet dr5 - Community-Acquired Pneumonia, Adult dr5 - Viral Conjunctivitis, Adult dr5 Forms: - Medication Reconciliation Form dr5 - Antibiotic Education dr5 - Patient Portal Instructions dr5 - Leadership Thank You Letter dr5 Prescriptions: - albuterol sulfate 90 mcg/actuation Inhalation HFA Aerosol Inhaler - inhale 2 puff INHALATION route 4 times per day as needed for shortness of dr5 breath or wheezing; 1 application; Refills: 0, Product Selection Permitted - Augmentin 875-125 mg Oral Tablet - take 1 tablet ORAL route every 12 hours for 10 days; 20 tablet; Refills: 0, dr5 Product Selection Permitted - Ocuflox 0.3 % Ophthalmic Drops - instill 2 drops OPHTHALMIC route every 6 hours for 2 days; 15 milliliter; dr5 Refills: 0, Product Selection Permitted - Zithromax Z-Capo 250 mg Oral Tablet - take 1 tablet ORAL route as directed for 5 days Day 1 - take two (2) tablets dr5 one time. Day 2, 3, 4 , 5 take one (1) tablet once daily.; 6 tablet; Refills: 0, Product Selection Permitted - Medrol (Capo) 4 mg Oral Tablets, Dose Pack - take 1 tablet ORAL route as directed - follow package instructions; 1 packet; dr5 Refills: 0, Product Selection Permitted Signatures: Dispatcher [employer] Peyton Haynes RN RN ll1 Caroline Block RN RN kc6 Gillian Monroe RN RN mb9 Heraclio Johnson, RUBBER [employer] TESTER WATER-C RU[employer]ER [employer] TESTER WATER-Cdr5
[2024-08-16 18:18] VITALS: TEMP 97.8
[2024-08-16 18:24] VITALS: BP 175/89; O2SAT 100
--- NOTE | 2024-08-18 16:47 | EKG ---
Test Date: 2024-08-16 Test Time: 15:46:13 Safety Supervisor: PARMJIT MEASUREMENT RESULTS: Intervals: Rate: 77 MS: 166 QRSD: 72 QT: 382 QTc: 432 [place]: P: 49 MS: 166 QRS: 2 T: 9 INTERPRETIVE STATEMENTS: Normal sinus rhythm Normal ECG Compared to ECG 05/23/2021 14:27:43 No significant changes Electronically Signed On 08-18-24 16:45:08 CDT by Ayaz Mora
== END 2024-08-16 18:00 | disposition home or self-care (01) ==
LOC: ER 14:47
DX: J15.9 Unspecified bacterial pneumonia (principal); H10.9 Unspecified conjunctivitis; E11.9 Type 2 diabetes mellitus without complications; I10 Essential (primary) hypertension; Z11.52 Encounter for screening for COVID-19
CPT/HCPCS: 93005; 85025; 80048; 36415; 84484; 83880; 71046; 96374; 99285; 87426; J7613 ×2; J7644 ×2; J1100